=== PATIENT | male | born 1985 | race Caucasian/White ===

== ENCOUNTER 2023-07-02 13:32 | Outpatient (REF) | payer OTHER, SELFPAY ==
[2023-07-03 10:30] LABS: Amphetamine Screen Urine Not Detected (Not Detect); Barbiturates, Urine Not Detected (Not Detect); Benzodiazepines Screen Urine Not Detected (Not Detect); Buprenorphine Scr Not Detected (Not Detect); Cannabinoid Screen Urine POSITIVE (Not Detect); Cocaine Screen Urine Not Detected (Not Detect); Fentanyl, urine Not Detected (Not Detect); Methadone Screen, Urine Not Detected (Not Detect); Opiate Screen Urine Not Detected (Not Detect); Oxycodone Screen Urine Not Detected (Not Detect); Phencyclidine Screen Urine Not Detected (Not Detect)
== END 2023-07-02 13:33 | disposition home or self-care (01) ==
LOC: HO.LNP 13:32
PROVIDERS: Visit Provider Psychiatry & Neurology Psychiatry
DX: F14.90 Cocaine use, unspecified, uncomplicated (principal); F12.20 Cannabis dependence, uncomplicated
CPT/HCPCS: 80307

== ENCOUNTER 2023-07-16 11:45 | Outpatient (RCR) | payer OTHER, SELFPAY ==
[2023-07-02 11:52] VITALS: BP 112/69; PULSE 53; TEMP 36.3
[2023-07-02 11:57] VITALS: BMI 23.9
--- NOTE | 2023-07-02 13:22 | PC.ADMIT ---
Patient is a 37 year old male who was referred to [facility] by [facility] where he was admitted to the behavioral health unit from 06/17-06/27/23. Patient has a dx of bipolar d/o, BPD, Cocaine use, cannabis use and PTSD. Patient stated to this show card writer that prior to hospitalization he got into an argument with his and police were called, he thinks by a neighbor, as he was yelling outside on the porch and when the police came he ran into the lam. He stated he was charged with evading arrest ad interfering. He stated he tried to overdose on Xanax taking 18 tabs 1 mg each. He stated he got the Xanax from a friend and instead of flipping it and selling it he took it in a SA. His family brought him to the hospital d/t depression and SI. Patient reports he smokes marijuana daily however has not smoked in 3 weeks as he is trying to stay sober for 90 days. He reports he has cut down his use from using 5-10 joints a day to 3-5 joints daily. I encouraged him to attend the substance use groups for more support as he could benefit from this and he agreed. Patient reports he has not used cocaine since 2018 or 2019. Patient is taking time off from work to work on his mental health and substance use. 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 Patient is alert and oriented x4. He presented with depressed mood and anxious affect. Denied SI, no HI. He is calm and cooperative. Thoughts are clear and logical. He was given education verbal and written on marijuana use and vaping nicotine. 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 He feels the medications have been helpful to regulate his mood. His appetite has improved since reducing marijuana use. He reports history of nausea and vomiting, not currently. Patient given a copy of his safety plan if needed. Medications reconciled with patient and patient's d/c paperwork. He reports he is taking medications as prescribed.
--- NOTE | 2023-07-04 13:18 | HO.PHP ---
PHP staff member faxed a referral to [facility] for OP therapy and med management for Rudy. PHP staff member is awaiting a response with the scheduled dates and times.
--- NOTE | 2023-07-04 15:06 | HO.PHP ---
Client's case has been opened and reviewed in treatment team.
--- NOTE | 2023-07-04 21:40 | P.HPPSP_ITS ---
HPI Date of Service: 07/04/23 Chief Complaint: bipolar,PTSD Sources of Information: patient interviewed, chart reviewed and crisis/core team assessment reviewed HPI Narrative: This is the first [facility] admission for this 37 yo male with depression, PTSD, history of polysubstance abuse and legal issues, recently stepped down from [facility] for depression, SI, was diagnosed with Bipolar Disorder and started on Lexapro and lithium. He has had minimal treatment history says he is only starting to come to the realization that he had been smoking marijuana to self medicate his MH problems. Since being discharged his mood has been improving: mood stability is currently at a 4 out 10, improved from a 0-1 out of 10 on inpatient hospitalization. I was having vicious mood swings I need to regulate . He identifies his goal with treatment is I want to be able to contro l my emotions . He relays being often frustrated and easily irritated and blows everything out of proportion of which he has good insight into, but still doesn't make it any easier to control himself. He relays these are chronic struggles and are not necessarily associated with any particular mood episodes. He also describes issues with impulse control and high emotional reactivity especially when provoked. He reports history of being arrested for resisting arrest. He reports struggles with sleep, (only marginally improved even though he is taking trazodone), low energy and unintentional weight loss over the past year, with his baseline weight at 165 lbs but dropped down to 142 lbs heading into [facility]. He has recovered some of his weight, currently at 152 lbs. He reports suppressed appetite and hasn;t been eating 3 meals a day. There are also some marital and medical stressors including a cyst on his testicle, patient is concerned about cancer and is currently seeking a second opinion. He and his had been involved with IVF but the insurance wont cover this. On review of meds he endorses ED/sexual dysfunction that recently emerged and may be related to the SSRI (he was unaware this was a potential side effect). 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 Patient who was 22 yo found her and had to cut her down with help of his other brother Patient dropped out of college after sister and started into crime Legal hx: Incarcerat Substance History: Cocaine addiction, marijuana use Trauma History: Traumatic losses of 2 siblings (one to MVA, the other to suicide) Diagnostics Vital Signs (24Hr): BMI result Body Mass Index 23.9 Labs Labs: Laboratory Results - last 48 hr 07/02/23 11:51 Urine Opiates Screen Cancelled Ur Buprenorphine Scrn Cancelled Ur Oxycodone Screen Cancelled Urine Methadone Screen Cancelled Urine Fentanyl Screen Cancelled Ur Barbiturates Screen Cancelled Ur Phencyclidine Scrn Cancelled Ur Amphetamines Screen Cancelled U Benzodiazepines Scrn Cancelled Urine Cocaine Screen Cancelled U Marijuana (THC) Screen Cancelled Meds/Allergies Allergies Allergies Allergy/AdvReac Type Severity Reaction Status Date / Time tuna oil Allergy Vomiting Verified 07/02/23 13:25 Mental Status Exam Mental Status Exam Narrative: Alert, oriented, in no acute distress. Calm, cooperative, engaged. No psychomotor agitation or neurovegetative retardation. Eye contact maintained. Mood depressed, affect constricted, irritable edge without notable lability. Speech normal. Thought process linear, coherent. Thought content related to stressors, transient helplessness, no hopelessness noted, denies SI, intention, urge or plan. Denies any aggressive ideation or HI. No paranoia or delusional content elicited. No evidence of psychosis. Insight and judgment - fair but adequate Assessment & Plan Assessment & Plan (1) Mood disorder: Status: Acute Code(s): F39 - Unspecified mood [affective] disorder Assessment and Plan: recently diagnosed with Bipolar Disorder consider BPIID vs MDD+mood dysregulation 2/t ICD vs ADHD (2) Other impulse disorders: Status: Acute Code(s): F63.89 - Other impulse disorders (3) PTSD (post-traumatic stress disorder): Status: Acute Code(s): F43.10 - Post-traumatic stress disorder, unspecified (4) Cocaine abuse: Status: Acute Code(s): F14.10 - Cocaine abuse, uncomplicated Plan Admit to PHP VS reviewed: abrefile; BP?112/69; bpm 53 Start Trileptal 300 mg qhs and will increase to BID dosing in 2-4 days, as tolerated Continue other medications for now -and we reviewed risk, benefit and potential side effects of his current medications Li, escitalopram and trazodone, as well as oxcarbazapine Will plan to decrease Lexapro (presumably this is causing ED) as tolerated Will consider adding on or switching over to Wellbutrin to target ED sx, as well as depressive sx, low energy, ADHD sx May also consider guanfacine for anxiety, restlessness, possibly sleep - however he is somewhat bradycardic, so will hold off for now (may work better if WB started first) Routine lab work ordered UDS, EKG as indicated MassPat reviewed Continue to monitor as per protocol Patient educated on: diagnosis, medication risk/benefits and substance abuse Informed Consent: understands Reason for continued partial hosp. stay Substantial Risk for: inability to function, rapid decompensation and med/psych decompensation Certification I certify that partial hospital treatment is medically necessary due to the symptoms and problems resulting from the patient's mental illness and the failure to treat the patient at the partial hospital level of care would likely result in the patient requiring inpatient psychiatric care which could not be prevented at a less intensive level of care. Time Spent With Patient Time: Total time managing care of this patient today __60__ minutes.
--- NOTE | 2023-07-11 23:28 | P.PNPSP_ITS ---
Subjective Subjective Date of Service: 07/11/23 Reason For Visit: bipolar,PTSD Interim History: Reports mood is starting to level out, not getting to high or too low . MOod stablity improved from a 6 out of 10 , up from a 2 out of 10. Not getting as upset by minor inconveniences (eg cleaning up cat puke). He is tolerating Trileptal now at 300 mg BID. Denies any sedation or adverse effects. 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 But is starting to feel hopelful if he is better able to handle situations. His notices improvements which he is happy about. He is doing okay with Lexapro at 10 mg is not sure if it has been helpful but for now we will continue on current dose and start WEllbutrin to target ADHD symptoms as well as depression. Will start guanfacine to better manage anxiety, attention/focus. Dneies any SI. In interim, sleep is improving he is no longer taking trazodone. Energy variable. appetite fair. He is feeling general health is overall good. Denies any substance use. ROS negative. Mental Status Exam Mental Status Exam Narrative: Alert, oriented, in no acute distress. Cooperative, engaged. Fidets, able to remain seated. Eye contact maintained. Mood less irritable or depressed, affect variable without noted irritability or lability. Speech normal. Thought process linear, coherent. Thought content related to stressors, transient helplessness, no hopelessness noted, denies SI, intention, urge or plan. Denies HI. No paranoia or delusional content elicited. No evidence of psychosis. Insight and judgment - fair but adequate Diagnostics Vital Signs (24Hr): BMI result Body Mass Index 23.9 Assessment & Plan Assessment & Plan (1) Mood disorder: Status: Acute Code(s): F39 - Unspecified mood [affective] disorder (2) Other impulse disorders: Status: Acute Code(s): F63.89 - Other impulse disorders (3) PTSD (post-traumatic stress disorder): Status: Acute Code(s): F43.10 - Post-traumatic stress disorder, unspecified (4) Cocaine abuse: Status: Acute Code(s): F14.10 - Cocaine abuse, uncomplicated Plan continue oxcarbazepine 300 mg BID and will titrate toward 450 mg BID over weekend start Wellbutrin SR 50-100 mg qAM as tolerated (take w breakfast, avoid caffeine for now) start guanfacine ER 1 mg qAM continue other regular medications Patient educated on: diagnosis, medication risk/benefits and substance abuse Informed Consent: understands Certification I certify that partial hospital treatment is medically necessary due to the s ymptoms and problems resulting from the patient's mental illness and the failure to treat the patient at the partial hospital level of care would likely result in the patient requiring inpatient psychiatric care which could not be prevented at a less intensive level of care. Total time managing care of this patient today ____ minutes. Discharge Plan Discharge Attending provider: Tracee Larson Additional Instructions: Rudy's OP therapy intake appointment is scheduled for July 19, 2023 at 11 AM with Shahrzad Holley at [address] [place] [address] in [place], [place]. Rudy's med provider appointment is scheduled for August 21, 2023 at 9 AM with Milagros Huang via telehealth. Medications: New oxcarbazepine 300 mg tablet 300 mg PO BID Qty: 30 0RF Rx Instructions: take 1/2 tablet po BID for 4 days then increase to 1 tablet BID bupropion HCl [Wellbutrin SR] 100 mg tablet sustained-release 12 hr 100 mg PO QAM Qty: 20 0RF guanfacine 1 mg tablet extended release 24 hr 1 mg PO QAM Qty: 20 0RF No Action trazodone 50 mg Tablet 50 mg PO BEDTIME PRN (Reason: Insomnia) nicotine (polacrilex) 2 mg Gum 2 mg BUCCAL Q1H lithium carbonate 150 mg Capsule 150 mg PO BEDTIME nicotine 21 mg/24 hr Patch 24 Hour 1 patch TRANSDERMAL DAILY escitalopram oxalate 10 mg Tablet 10 mg PO DAILY naloxone 4 mg/actuation [place],Non-Aerosol 4 mg INTRANASAL ONCE PRN (Reason: Opioid Reversal) Rx Instructions: spray 1 dose into ONE nostril; alternate nostrils w each dose until help arrives. Stand Alone Forms: Patient Portal Discharge page Print Language: Welsh
--- NOTE | 2023-07-12 09:38 | HO.PHP ---
PHP staff member received a phone call from Nikos at [facility], who informed the clinician of Rudy's upcoming appointments. Rudy's OP therapy intake appointment is scheduled for July 19, 2023 at 11 AM with Shahrzad Holley at [address] [place] [address] in [place], [place]. Rudy's med provider appointment is scheduled for August 21, 2023 at 9 AM with Milagros Huang via telehealth.
--- NOTE | 2023-07-15 09:54 | PC.NURSE ---
New PCP appointment on November 29, 2023 900 am at [address] Office Number [phone].
--- NOTE | 2023-07-16 23:47 | HO.PHPPROGNO ---
Subjective Subjective Date of Service: 07/16/23 Reason For Visit: bipolar,PTSD Interim History: Patient seen for follow-up, anticipating discharge at the end of program today.? Reports no acute issues or concerns. Medication compliant, medications well-tolerated. Denies any adverse effects.? Mood is stable.? Denies any hopelessness or SI. Denies thoughts of harming self or others at this time. Denies any aggressive ideation or HI. Denies any paranoia or AH or VH. Sleep, appetite, energy stable. Medication Compliance: Yes Side effects from medications: No Attending Groups: Yes Review of Systems Acute medical concerns: No Mental Status Exam Mental Status Exam Narrative: Alert, oriented, in no acute distress. Cooperative, engaged. Fidets, able to remain seated. Eye contact maintained. Mood less irritable or depressed, affect variable without noted irritability or lability. Speech normal. Thought process linear, coherent. Thought content related to stressors, transient helplessness, no hopelessness noted, denies SI, intention, urge or plan. Denies HI. No paranoia or delusional content elicited. No evidence of psychosis. Insight and judgment - fair but adequate Diagnostics Vital Signs (24Hr): BMI result Body Mass Index 23.9 Assessment & Plan Assessment & Plan (1) Other bipolar disorder: Status: Acute Code(s): F31.89 - Other bipolar disorder (2) PTSD (post-traumatic stress disorder): Status: Acute Code(s): F43.10 - Post-traumatic stress disorder, unspecified (3) ADHD, adult residual type: Status: Acute Code(s): F90.8 - Attention-deficit hyperactivity disorder, other type (4) Cocaine abuse: Status: Acute Code(s): F14.10 - Cocaine abuse, uncomplicated Assessment and Plan: in early remission (5) Cannabis abuse: Status: Acute Code(s): F12.10 - Cannabis abuse, uncomplicated Plan Discharge from [facility] Continue regular medications continue oxcarbazepine at 600 mg BID continue Wellbutrin SR 100 mg BID (take w breakfast, avoid caffeine for now) cotninue guanfacine ER 1 mg BID continue to taper off Lexapro (5 mg daily for one week then stop) discontinued: [place], trazodone, Lexapro, Patient did not get blood work done Refills sent to pharmacy Will defer further medication management to outpatient provider patient can contact [facility] for refills if set to run out before OP provider appointment *Safety plan reviewed *Discharge Diagnoses reviewed with patient, as well as treatment course, discharge plan (including medication regime, medication management, potential side effects) as well as treatment rationale were also revisited *If patient wishes, they are welcome to have their outpatient provider reach out to me for any further questions or clarification as pertains to this patient?s clinical care/treatment during their stay at [facility] (contact information provided to patient)? Patient educated on: diagnosis, medication risk/benefits and substance abuse Informed Consent: understands Reason for contiued partial hosp. stay Substantial Risk for: stable for discharge Certification I certify that partial hospital treatment is medically necessary due to the symptoms and problems resulting from the patient's mental illness and the failure to treat the patient at the partial hospital level of care would likely result in the patient requiring inpatient psychiatric care which could not be prevented at a less intensive level of care. Total time managing care of this patient today __30__ minutes. Discharge Plan Discharge Attending provider: Tracee Larson Additional Instructions: Rudy's OP therapy intake appointment is scheduled for July 19, 2023 at 11 AM with Shahrzad Holley at [address] [place] [address] in [place], [place]. Rudy's med provider appointment is scheduled for August 21, 2023 at 9 AM with Milagros Huang via telehealth. New PCP appointment on November 29, 2023 at 9:00 am at [address] Office Number [phone]. Medications: New guanfacine 1 mg tablet extended release 24 hr 1 mg PO QPM Qty: 30 0RF escitalopram oxalate 5 mg tablet 7.5 mg PO DAILY Qty: 45 0RF guanfacine 1 mg tablet extended release 24 hr 1 mg PO BID 30 Days Qty: 60 0RF Continued oxcarbazepine 600 mg tablet 600 mg PO BID 10 Days Qty: 20 0RF Changed guanfacine 1 mg tablet extended release 24 hr 1 - 2 mg PO QAM Qty: 30 0RF bupropion HCl [Wellbutrin SR] 100 mg tablet sustained-release 12 hr 100 mg PO BID 10 Days Qty: 20 0RF Discontinued trazodone 50 mg Tablet 50 mg PO BEDTIME PRN (Reason: Insomnia) nicotine (polacrilex) 2 mg Gum 2 mg BUCCAL Q1H lithium carbonate 150 mg Capsule 150 mg PO BEDTIME nicotine 21 mg/24 hr Patch 24 Hour 1 patch TRANSDERMAL DAILY escitalopram oxalate 10 mg Tablet 10 mg PO DAILY naloxone 4 mg/actuation [place],Non-Aerosol 4 mg INTRANASAL ONCE PRN (Reason: Opioid Reversal) Rx Instructions: spray 1 dose into ONE nostril; alternate nostrils w each dose until help arrives. Stand Alone Forms: Patient Portal Discharge page Patient Education: Mood Disorders (DC) Print Language: Gibraltarian
--- NOTE | 2023-08-14 15:46 | PM.EVENT ---
Event Note Date of Service: 08/14/23 Event Note: 10 day supply sent wellbutrin trileptal per php request Time Spent With Patient Time: Total time managing care of this patient today ____ minutes.
--- NOTE | 2023-08-22 23:37 | PM.EVENT ---
Event Note Date of Service: 08/22/23 Event Note: Returned call to patient to inform him that the requested refills on bupropion, oxcarbazepine and escitalopram were efaxed to his pharmacy. Time Spent With Patient Time: Total time managing care of this patient today _10___ minutes.
--- NOTE | 2023-08-29 15:30 | HO.PHP ---
Budget Counselor contacted [facility] outpatient behavioral health services to follow-up on the scheduled services set up for Jovon while he was at [facility], after pt's contacted [facility] to express concern that he did not have OP services in place. [facility] Central Intake reported Jovon Rodriguez went to one therapy appt, scheduled on July 18 and did not return for future appts. [facility] staff stated, per note, that pt called [facility] and asked to be discharged because he was going to find providers closer to his home location. [facility] reports he did not show up to his Med Provider appt scheduled on August 21, 2023 so his case with [facility] was closed. Budget Counselor confirmed with [facility] that his health insurance was active and accepted at [facility].
--- NOTE | 2023-08-30 14:02 | HO.PHP ---
Rudy called the program stating that the aftercare services that were set up for him fell through. The [facility] team helped him by setting up a Bridge appointment on Saturday, September 02, 2023 with Ana Rosa Polo for follow up medication management.
== END 2023-07-16 23:59 | disposition home or self-care (01) ==
LOC: HO.PHPA 11:45
PROVIDERS: Visit Provider Psychiatry & Neurology Psychiatry
DX: F39 Unspecified mood [affective] disorder (principal); F63.89 Other impulse disorders; F43.10 Post-traumatic stress disorder, unspecified; F14.10 Cocaine abuse, uncomplicated; Z79.899 Other long term (current) drug therapy
CPT/HCPCS: 80307; 90791; 90853

== ENCOUNTER 2023-09-02 14:08 | Outpatient (AMB) | payer OTHER, SELFPAY ==
--- NOTE | 2023-09-02 14:18 | A.OFFPSYCH_ITS ---
Intake Intake Visit Reasons: consultation Manager Recovery Required: No Allergies tuna oil Allergy (Verified 07/02/23 13:25) Vomiting Medication List - Last Reconciled 09/02/23 by Briseida Polo APRN bupropion HCl SR (Wellbutrin SR) 100 mg PO BID 30 days escitalopram oxalate 5 mg PO DAILY guanfacine ER 1 mg PO QPM guanfacine ER 1 - 2 mg (1 - 2 x 1 mg) PO QAM guanfacine ER 1 mg PO BID 30 days oxcarbazepine 600 mg PO BID 30 days HPI- Psychiatric Chief Complaint: consultation HPI Narrative: 37 yo male with depression, PTSD, history of polysubstance abuse and legal is sues, recently finished PHP after step down from [facility] for depression, SI, was diagnosed with Bipolar Disorder and started on Lexapro and lithium. He is currently taking meds : lexapro 5mg daily trileptal 600mh BID tenex ER 1 mg BID wellbutrin SR 100mg BID He is on a lexarpo taper with goal of d/c. pt reports some mild depression symptoms with guillt, shame, self blam, irritability, unable to enjoy activities. He has not connected to a therapist or psychiatrist yet. he was referred to a place in [facility] but it is too far for him to travel. he is not driving yet. he has good insight into, but still doesn't make it any easier to control himself. He relays these are chronic struggles and are not necessarily associated with any particular mood episodes. He also describes issues with impulse control and high emotional reactivity especially when provoked. He reports history of being arrested for resisting arrest. He reports struggles with sleep, low energy and unintentional weight loss over the past year, with his baseline weight at 165 lbs but dropped down to 142 lbs heading Pt describes very early losses and truama during childhood which continue to impact him. He denies SI or Hi. Past Psychiatric History: [facility] x1 spent ~ 2weeks at [place] Previous trials of Zoloft in shelter, no previous medication trials Subjective Subjective Subjective Medication Compliance: Yes Side effects from medications: No Review of Systems Medical Review of Systems: unchanged Mental Status Exam Mental Status Exam Patient Appearance: Appropriate Patient Orientation: Person, Place, Time and Situation Level of Consciousness: Awake and Appropriate Patient Behavior: Appropriate, Talkative and Cooperative Mood Description: Sad Affect Description: Sad Patient Cognition Impaired: No Ability to Follow Directions: Good Speech Pattern: Clear and Spontaneous Speech Memory Description: Intact Hallucinations: None Delusions: Not Present Thought Process: Intact and Goal Oriented Thought Content: positive for Intact, positive for Goal Oriented and positive for Loose Associations Judgement: Fair Assessment and Plan Assessment & Plan (1) PTSD (post-traumatic stress disorder): Status: Acute Code(s): F43.10 - Post-traumatic stress disorder, unspecified (2) Other bipolar disorder: Status: Acute Code(s): F31.89 - Other bipolar disorder (3) ADHD, adult residual type: Status: Acute Code(s): F90.8 - Attention-deficit hyperactivity disorder, other type (4) Cannabis abuse: Status: Acute Code(s): F12.10 - Cannabis abuse, uncomplicated (5) Cocaine abuse: Status: Acute Code(s): F14.10 - Cocaine abuse, uncomplicated Plan continue medications reduce lexapro to 2.5mg daily increase tenex ER 1 mg to one in am and 2 at bedtime Medications: Changed From escitalopram oxalate 5 mg PO DAILY 30 tabs 0RF as directed To escitalopram oxalate stop after 14 days of 2.5mg daily 2.5 mg (1/2 x 5 mg) PO DAILY 7 tabs 0RF as directed From guanfacine ER 1 mg PO BID 30 days 60 tabs 0RF To guanfacine ER 1 mg orally take one tablet inmorning and two tablets at bedtime; 30 days 90 tabs 0RF Refilled oxcarbazepine 600 mg PO BID 30 days 60 tabs 0RF bupropion HCl SR (Wellbutrin SR) 100 mg PO BID 30 days 60 tabs 0RF in AM and lunchtime Discontinued guanfacine ER Discontinued Reason: Duplicate 1 mg PO QPM 30 tabs 0RF in late afternoon/evening guanfacine ER Discontinued Reason: Duplicate 1 - 2 mg (1 - 2 x 1 mg) PO QAM 30 tabs 0RF as directed Counseling and coordination of Care Pt. Self Management counseling: Other self-help group, Maintenance-social rhythm, Mod caffeine/ETOH intake, Sleep hygiene, Behavior activation and Cognitive restructuring Medication management counseling: Effectiveness, Side effects, Dosing range, Duration, Drug interaction and Adherence Diagnosis and Prognosis Counseling: Accuracy of diagnosis, Prognosis over time, Impact of diagnosis on life functions, Impact of family relationship, Problematic behaviors secondary to diagnosis and Adequacy of current interventions Details: I spent 60 minutes reviewing the record, seeing the patient and documenting in the medical record. Counseling provided to the patient/caregiver as outlined below. Addressed patient/caregiver concerns regarding current medication regime including effective adherence. Addressed patient/caregiver concerns regarding diagnosis and prognosis including accuracy of diagnosis, prognosis over time, impact of diagnosis. Addressed patient/caregiver concerns regarding impact of recent stressors. 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 Patient who was 22 yo found her and had to cut her down with help of his other brother Patient dropped out of college after sister and started into crime Legal hx: Incarcerat Substance History: Cocaine addiction, marijuana use Trauma History: Traumatic losses of 2 siblings (one to MVA, the other to suicide) Coding Level of Care Code Psych Diag Eval w/Med (11738) Diagnoses PTSD (post-traumatic stress disorder) F43.10 Other bipolar disorder F31.89 ADHD, adult residual type F90.8 Cannabis abuse F12.10 Cocaine abuse F14.10
== END 2023-09-02 15:45 | disposition home or self-care (01) ==
LOC: HO.HOP 14:08
PROVIDERS: Visit Provider Clinical Nurse Specialist Psychiatric/Mental Health
DX: F43.10 Post-traumatic stress disorder, unspecified (principal); F31.89 Other bipolar disorder; F90.8 Attention-deficit hyperactivity disorder, other type; F12.10 Cannabis abuse, uncomplicated; F14.10 Cocaine abuse, uncomplicated
CPT/HCPCS: 90792

== ENCOUNTER → 2023-09-02 14:08 | Outpatient (BNVA) | payer OTHER, SELFPAY | PROVIDERS: Visit Provider Clinical Nurse Specialist Psychiatric/Mental Health | DX: F43.10 Post-traumatic stress disorder, unspecified (principal); F31.89 Other bipolar disorder; F90.8 Attention-deficit hyperactivity disorder, other type; F12.10 Cannabis abuse, uncomplicated; F14.10 Cocaine abuse, uncomplicated; Z79.899 Other long term (current) drug therapy | CPT/HCPCS: 90792 ==

== ENCOUNTER 2023-10-11 16:06 | Outpatient (AMB) | payer OTHER, SELFPAY ==
--- NOTE | 2023-10-11 16:16 | MHC.OFFVISPS ---
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 he reports continued abstinence; reports more mood swings, more irritability, sadness, feels unworthy, struggling with lack of community, reports passive SI but no plan and no intent. no HI. He reports he was on lithium in the past and he felt that his mood was much better. He felt like he was happy to be alive. He felt zafar in activities. We discussed the pros and cons of using lithium. Discussed using it a low dose to protect his kidneys and to limit blood work requirements. Past Psychiatric History: [facility] x1 spent ~ 2weeks at [place] [facility], no previous medication trials Subjective Subjective Subjective Medication Compliance: Yes Side effects from medications: No Review of Systems Medical Review of Systems: unchanged Mental Status Exam Mental Status Exam Patient Appearance: Well Grooomed and Appropriate Patient Orientation: Person, Place, Time and Situation Level of Consciousness: Awake Patient Behavior: Appropriate Mood Description: Sad Affect Description: Flat and Sad Patient Cognition Impaired: No Ability to Follow Directions: Good Speech Pattern: Clear Memory Description: Intact Hallucinations: None Delusions: Not Present Thought Process: Intact Thought Content: positive for Intact and positive for Loose Associations Judgement: Fair Assessment and Plan Assessment & Plan (1) ADHD, adult residual type: Status: Acute Code(s): F90.8 - Attention-deficit hyperactivity disorder, other type (2) PTSD (post-traumatic stress disorder): Status: Acute Code(s): F43.10 - Post-traumatic stress disorder, unspecified (3) Mood disorder: Status: Acute Code(s): F39 - Unspecified mood [affective] disorder Plan add lithium 150 mg BID stay hydrated continue with guanfacine,trileptal, and wellbutrin Medications: New lithium carbonate 150 mg PO BID 60 caps 1RF Refilled guanfacine ER 1 mg orally take one tablet inmorning and two tablets at bedtime; 30 days 90 tabs 0RF Discontinued escitalopram oxalate stop after 14 days of 2.5mg daily Discontinued Reason: Doctor's Order 2.5 mg (1/2 x 5 mg) PO DAILY 7 tabs 0RF as directed Counseling and coordination of Care Pt. Self Management counselin Step program, Maintenance-social rhythm, Mindfulness, Mod caffeine/ETOH intake, Nutrition education and improvement, Sleep hygiene, Substance abuse tx adhere, Behavior activation, Cognitive restructuring, General coping skills and Problem solving Medication management counseling: Effectiveness, Side effects, Dosing range, Duration, Drug interaction and Adherence Diagnosis and Prognosis Counseling: Accuracy of diagnosis, Prognosis over time, Impact of diagnosis on life functions, Impact of family relationship, Problematic behaviors secondary to diagnosis and Adequacy of current interventions Details: I spent 45 minutes reviewing the record, seeing the patient and documenting in the medical record. Counseling provided to the patient/caregiver as outlined below. Addressed patient/caregiver concerns regarding current medication regime including effective adherence. Addressed patient/caregiver concerns regarding diagnosis and prognosis including accuracy of diagnosis, prognosis over time, impact of diagnosis. Addressed patient/caregiver concerns regarding impact of recent stressors. 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 Patient who was 22 yo found her and had to cut her down with help of his other brother Patient dropped out of college after sister and started into crime Legal hx: Incarcerat Substance History: Cocaine addiction, marijuana use Trauma History: Traumatic losses of 2 siblings (one to MVA, the other to suicide) Coding Level of Care Code Est Pt Level 4 (74733) Therapy 30m w/E&M (49462) Diagnoses ADHD, adult residual type F90.8 PTSD (post-traumatic stress disorder) F43.10 Mood disorder F39 Comment problem solving therapy re: community supports
== END 2023-10-11 18:33 | disposition home or self-care (01) ==
LOC: HO.HOP 16:06
PROVIDERS: PCP Hospitalist; Visit Provider Clinical Nurse Specialist Psychiatric/Mental Health
DX: F90.8 Attention-deficit hyperactivity disorder, other type (principal); F43.10 Post-traumatic stress disorder, unspecified; F39 Unspecified mood [affective] disorder
CPT/HCPCS: 90833; 99214

== ENCOUNTER → 2023-10-11 16:06 | Outpatient (BNVA) | payer OTHER, SELFPAY | PROVIDERS: PCP Hospitalist; Visit Provider Clinical Nurse Specialist Psychiatric/Mental Health ==

== ENCOUNTER 2023-11-04 14:30 | Outpatient (AMB) | payer OTHER, SELFPAY ==
--- NOTE | 2023-11-04 14:37 | A.OFFPSYCH_ITS ---
Intake Intake Visit Reasons: depr Stem Frazer Required: No Allergies tuna oil Allergy (Verified 07/02/23 13:25) Vomiting Medication List - Last Reconciled 11/04/23 by Briseida Polo APRN bupropion HCl SR (Wellbutrin SR) 100 mg PO BID 30 days guanfacine ER 1 mg orally take one tablet inmorning and two tablets at bedtime; 30 days lithium carbonate 150 mg PO BID oxcarbazepine 600 mg PO BID 30 days HPI- Psychiatric Chief Complaint: depr HPI Narrative: pt reports lithium has helped his mood; no side effects; started with therapist; reports some intermittent agitation; reports conflict with ; feels bad about himself;no SI or HI. sleep fair. reports OCD symptoms of counting, rushing to finish things due to feeling something bad will happen, cleaning 6-10 times a day the same space, having to put thinks in certain order and away after use without delay. very upset when things aren't done a certain way. causes some conflict with others. says he felt better on lithium and lexapro. doesn't think trileptal has done much for him and not certain about wellbutrin or tenex. Past Psychiatric History: [facility] x1 spent ~ 2weeks at [place] [facility] [place] [facility], no previous medication trials Subjective Subjective Subjective Medication Compliance: Yes Side effects from medications: No Review of Systems Medical Review of Systems: unchanged Mental Status Exam Mental Status Exam Patient Appearance: Appropriate Patient Orientation: Person, Place, Time and Situation Level of Consciousness: Awake and Appropriate Patient Behavior: Appropriate and Talkative Mood Description: Sad Affect Description: Sad Patient Cognition Impaired: No Ability to Follow Directions: Good Speech Pattern: Clear Memory Description: Intact Hallucinations: None Delusions: Not Present Thought Process: Intact, Rumination and Goal Oriented Thought Content: positive for Intact, positive for Obsessional Thoughts and positive for Loose Associations Judgement: Fair Assessment and Plan Assessment & Plan (1) PTSD (post-traumatic stress disorder): Status: Acute Code(s): F43.10 - Post-traumatic stress disorder, unspecified (2) OCD (obsessive compulsive disorder): Status: Acute Qualifiers: Obsessive-compulsive disorder type: mixed obsessional thoughts and acts Qualified Code(s): F42.2 - Mixed obsessional thoughts and acts Code(s): F42.9 - Obsessive-compulsive disorder, unspecified (3) ADHD, adult residual type: Status: Acute Code(s): F90.8 - Attention-deficit hyperactivity disorder, other type (4) Other bipolar disorder: Status: Acute Code(s): F31.89 - Other bipolar disorder Plan add lexapro 5 mg daily increase lithium to 300mg BID consider tapering trileptal in future reassess tenex and wellbutrin Medications: New escitalopram oxalate (Lexapro) 5 mg PO DAILY 30 tabs 0RF lithium carbonate 300 mg PO BID 60 caps 0RF Discontinued lithium carbonate Discontinued Reason: Doctor's Order 150 mg PO BID 60 caps 1RF Counseling and coordination of Care Pt. Self Management counseling: Maintenance-social rhythm, Mindfulness, Mod caffeine/ETOH intake, Sleep hygiene, Substance abuse tx adhere, Behavior activation, General coping skills and Problem solving Medication management counseling: Effectiveness, Side effects, Dosing range, Drug interaction and Adherence Diagnosis and Prognosis Counseling: Accuracy of diagnosis, Prognosis over time, Impact of diagnosis on life functions, Impact of family relationship and Adequacy of current interventions Details: I spent 45 minutes reviewing the record, seeing the patient and documenting in the medical record. Counseling provided to the patient/caregiver as outlined below. Addressed patient/caregiver concerns regarding current medication regime including effective adherence. Addressed patient/caregiver concerns regarding diagnosis and prognosis including accuracy of diagnosis, prognosis over time, impact of diagnosis. Addressed patient/caregiver concerns regarding impact of recent stressors. 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 Patient who was 22 yo found her and had to cut her down with help of his other brother Patient dropped out of college after sister and started into crime Legal hx: Incarcerat Substance History: Cocaine addiction, marijuana use Trauma History: Traumatic losses of 2 siblings (one to MVA, the other to suicide) Coding Level of Care Code Est Pt Level 5 (19484) Diagnoses PTSD (post-traumatic stress disorder) F43.10 Mixed obsessional thoughts and acts F42.2 Obsessive-compulsive disorder type: mixed obsessional thoughts and acts ADHD, adult residual type F90.8 Other bipolar disorder F31.89
== END 2023-11-04 15:22 | disposition home or self-care (01) ==
LOC: HO.HOP 14:30
PROVIDERS: PCP Hospitalist; Visit Provider Clinical Nurse Specialist Psychiatric/Mental Health
DX: F43.10 Post-traumatic stress disorder, unspecified (principal); F42.2 Mixed obsessional thoughts and acts; F90.8 Attention-deficit hyperactivity disorder, other type; F31.89 Other bipolar disorder
CPT/HCPCS: 99215

== ENCOUNTER → 2023-11-04 14:30 | Outpatient (BNVA) | payer OTHER, SELFPAY | PROVIDERS: PCP Hospitalist; Visit Provider Clinical Nurse Specialist Psychiatric/Mental Health ==

== ENCOUNTER 2023-11-19 15:28 | Outpatient (AMB) | payer OTHER, SELFPAY ==
--- NOTE | 2023-11-19 16:03 | MHC.OFFVISPS ---
Intake Intake Visit Reasons: depr Allergies tuna oil Allergy (Verified 07/02/23 13:25) Vomiting Medication List - Last Reconciled 11/19/23 by Briseida Polo APRN escitalopram oxalate (Lexapro) 5 mg PO DAILY guanfacine ER 1 mg orally take one tablet inmorning and two tablets at bedtime; 30 days lithium carbonate 300 mg PO BID oxcarbazepine 600 mg PO BID 30 days HPI- Psychiatric Chief Complaint: depr HPI Narrative: PHQ9= 15.5 and was 20 at last visit; GAD7=9 and improved also; pt is much calmer; less irritable. more optimistic; has been enjoying working and softball. enjoys time with . he continues to struggle with feeling worthy and lso with survivors guilt; he expresses a sense of foreshortened future and we discussed this as a symptoms of trauma; encouraged him that he can heal from this as well on his recovery journey. He says he doesn't every save money and we discussed this as parallel to a sense of foreshortened future from experiences of trauma; He is meetng regularly with therapist and making progress. no active SI ; expresses some passive SI but no plan an no intent; no Hi. no side effects; discussed needed blood work and he will get done next week. Past Psychiatric History: IPLOC x1 spent ~ 2weeks at [place] Previous trials of Zoloft in care home, no previous medication trials Subjective Subjective Subjective Medication Compliance: Yes Side effects from medications: No Review of Systems Medical Review of Systems: unchanged Mental Status Exam Mental Status Exam Patient Appearance: Well Grooomed and Appropriate Patient Orientation: Person, Place, Time and Situation Level of Consciousness: Awake and Appropriate Patient Behavior: Appropriate, Talkative and Cooperative Mood Description: Sad Affect Description: Sad Patient Cognition Impaired: No Ability to Follow Directions: Good Speech Pattern: Clear and Appropriate Memory Description: Intact Hallucinations: None Delusions: Not Present Thought Process: Intact and Goal Oriented Thought Content: positive for Intact and positive for Goal Oriented Judgement: Fair Assessment and Plan Assessment & Plan (1) OCD (obsessive compulsive disorder): Status: Acute Qualifiers: Obsessive-compulsive disorder type: mixed obsessional thoughts and acts Qualified Code(s): F42.2 - Mixed obsessional thoughts and acts Code(s): F42.9 - Obsessive-compulsive disorder, unspecified (2) ADHD, adult residual type: Status: Acute Code(s): F90.8 - Attention-deficit hyperactivity disorder, other type (3) Other bipolar disorder: Status: Acute Code(s): F31.89 - Other bipolar disorder (4) Long-term use of high-risk medication: Status: Acute Code(s): Z79.899 - Other pen[facility]iary (current) drug therapy Plan continue lithium 300mg BID continue lexpapro 5 mg daily continue trileptal 600mg BID continue tenex er 1 mg in am and 2 at night Medications: Refilled lithium carbonate 300 mg PO BID 60 caps 0RF oxcarbazepine 600 mg PO BID 60 tabs 2RF 30 days escitalopram oxalate (Lexapro) 5 mg PO DAILY 30 tabs 0RF guanfacine ER 1 mg orally take one tablet inmorning and two tablets at bedtime; 90 tabs 0RF 30 days Discontinued bupropion HCl SR (Wellbutrin SR) Discontinued Reason: Doctor's Order 100 mg PO BID 30 days 60 tabs 0RF in AM and lunchtime Orders: Orders Complete Blood Count Auto Diff Today Z79.899 - Other penitentiary (current) drug therapy Comprehensive [place]. Panel Fast Today Z79.899 - Other penitentiary (current) drug therapy [place] Today Z79.899 - Other terminal operations manager (current) drug therapy TSH reflex Free T4 Today Z79.899 - Other terminal operations manager (current) drug therapy ECG 12 lead EKG Today F90.8 - Attention-deficit hyperactivity disorder, other type, Z79.899 - Other penitentiary (current) drug therapy Counseling and coordination of Care Details: I spent [] minutes reviewing the record, seeing the patient and documenting in the medical record. Counseling provided to the patient/caregiver as outlined below. Addressed patient/caregiver concerns regarding current medication regime including effective adherence. Addressed patient/caregiver concerns regarding diagnosis and prognosis including accuracy of diagnosis, prognosis over time, impact of diagnosis. Addressed patient/caregiver concerns regarding impact of recent stressors. 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 Patient who was 22 yo found her and had to cut her down with help of his other brother Patient dropped out of college after sister and started into crime Legal hx: Incarcerat Substance History: Cocaine addiction, marijuana use Trauma History: Traumatic losses of 2 siblings (one to MVA, the other to suicide) Coding Level of Care Code Est Pt Level 5 (13590) Diagnoses Mixed obsessional thoughts and acts F42.2 Obsessive-compulsive disorder type: mixed obsessional thoughts and acts ADHD, adult residual type F90.8 Other bipolar disorder F31.89 Long-term use of high-risk medication Z79.899
== END 2023-11-19 16:11 | disposition home or self-care (01) ==
LOC: HO.HOP 15:28
PROVIDERS: PCP Hospitalist; Visit Provider Clinical Nurse Specialist Psychiatric/Mental Health
DX: F42.2 Mixed obsessional thoughts and acts (principal); F90.8 Attention-deficit hyperactivity disorder, other type; F31.89 Other bipolar disorder; Z79.899 Other long term (current) drug therapy
CPT/HCPCS: 99215

== ENCOUNTER → 2023-11-19 15:28 | Outpatient (BNVA) | payer OTHER, SELFPAY | PROVIDERS: PCP Hospitalist; Visit Provider Clinical Nurse Specialist Psychiatric/Mental Health ==

== ENCOUNTER 2023-12-17 15:04 | Outpatient (AMB) | payer OTHER, SELFPAY ==
--- NOTE | 2023-12-17 15:09 | A.OFFPSYCH_ITS ---
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 PHQ9=13 and GAD7 = 8. no SI or Hi Past Psychiatric History: IPLOC x1 spent ~ 2weeks at [facility] Previous trials of Zoloft in snf, no previous medication trials Subjective Subjective Subjective Medication Compliance: Yes Side effects from medications: No Review of Systems Medical Review of Systems: unchanged Mental Status Exam Mental Status Exam Patient Appearance: Well Grooomed and Appropriate Patient Orientation: Person, Place, Time and Situation Level of Consciousness: Awake and Appropriate Patient Behavior: Appropriate Mood Description: Anxious Affect Description: Anxious Patient Cognition Impaired: No Ability to Follow Directions: Good Speech Pattern: Clear Memory Description: Intact Hallucinations: None Delusions: Not Present Thought Process: Intact and Distracted Thought Content: positive for Intact and positive for Loose Associations Judgement: Good Assessment and Plan Assessment & Plan (1) ADHD, adult residual type: Status: Acute Code(s): F90.8 - Attention-deficit hyperactivity disorder, other type (2) Other bipolar disorder: Status: Acute Code(s): F31.89 - Other bipolar disorder (3) PTSD (post-traumatic stress disorder): Status: Acute Code(s): F43.10 - Post-traumatic stress disorder, unspecified (4) Cocaine abuse: Status: Acute Code(s): F14.10 - Cocaine abuse, uncomplicated Medications: Refilled guanfacine ER 1 mg orally take one tablet inmorning and two tablets at bedtime; 90 tabs 0RF 30 days lithium carbonate 300 mg PO BID 60 caps 0RF escitalopram oxalate (Lexapro) 5 mg PO DAILY 30 tabs 0RF oxcarbazepine 600 mg PO BID 60 tabs 2RF 30 days Counseling and coordination of Care Details: I spent [] minutes reviewing the record, seeing the patient and documenting in the medical record. Counseling provided to the patient/caregiver as outlined below. Addressed patient/caregiver concerns regarding current medication regime including effective adherence. Addressed patient/caregiver concerns regarding diagnosis and prognosis including accuracy of diagnosis, prognosis over time, impact of diagnosis. Addressed patient/caregiver concerns regarding impact of recent stressors. 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 Patient who was 22 yo found her and had to cut her down with help of his other brother Patient dropped out of college after sister and started into crime Legal hx: Incarcerat Substance History: Cocaine addiction, marijuana use Trauma History: Traumatic losses of 2 siblings (one to MVA, the other to suicide) Coding Level of Care Code Est Pt Level 4 (88779) Diagnoses ADHD, adult residual type F90.8 Other bipolar disorder F31.89 PTSD (post-traumatic stress disorder) F43.10 Cocaine abuse F14.10
== END 2023-12-17 15:36 | disposition home or self-care (01) ==
LOC: HO.HOP 15:04
PROVIDERS: PCP Hospitalist; Visit Provider Clinical Nurse Specialist Psychiatric/Mental Health
DX: F90.8 Attention-deficit hyperactivity disorder, other type (principal); F31.89 Other bipolar disorder; F43.10 Post-traumatic stress disorder, unspecified; F14.10 Cocaine abuse, uncomplicated
CPT/HCPCS: 99214

== ENCOUNTER → 2023-12-17 15:04 | Outpatient (BNVA) | payer OTHER, SELFPAY | PROVIDERS: PCP Hospitalist; Visit Provider Clinical Nurse Specialist Psychiatric/Mental Health ==

== ENCOUNTER 2024-02-10 15:40 | Outpatient (AMB) | payer OTHER, SELFPAY ==
--- NOTE | 2024-02-10 15:52 | A.OFFPSYCH_ITS ---
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 I reviewed paperwork from hospital with DC plan; pt denies SI or HI; he has a list of goals he is working on; He is contacting friends for support; he is looking for a new therapist. Pt does have plus 1 tremor in hands bilaterally- he says worse when anxious but goes away when calmer; will monitor and may start propranolol if needed Past Psychiatric History: IPLOC x1 spent ~ 2weeks at [facility] Previous trials of Zoloft in long term, no previous medication trials Subjective Subjective Subjective Medication Compliance: Yes Side effects from medications: No Review of Systems Medical Review of Systems: unchanged Mental Status Exam Mental Status Exam Narrative: weight 142# height 5'7 Patient Appearance: Well Grooomed Patient Orientation: Person, Place, Time and Situation Level of Consciousness: Awake, Appropriate and Alert Patient Behavior: Restless and Anxious Mood Description: Anxious and Sad Affect Description: Anxious and Sad Patient Cognition Impaired: No Ability to Follow Directions: Good Speech Pattern: Clear, Appropriate and Excessive Memory Description: Intact Hallucinations: None Delusions: Not Present Thought Process: Intact and Distracted Thought Content: positive for Intact, positive for Circumstantial and positive for Loose Associations Judgement: Good Assessment and Plan Assessment & Plan (1) OCD (obsessive compulsive disorder): Status: Acute Qualifiers: Obsessive-compulsive disorder type: mixed obsessional thoughts and acts Qualified Code(s): F42.2 - Mixed obsessional thoughts and acts Code(s): F42.9 - Obsessive-compulsive disorder, unspecified (2) ADHD, adult residual type: Status: Acute Code(s): F90.8 - Attention-deficit hyperactivity disorder, other type (3) PTSD (post-traumatic stress disorder): Status: Acute Code(s): F43.10 - Post-traumatic stress disorder, unspecified (4) Other bipolar disorder: Status: Acute Code(s): F31.89 - Other bipolar disorder Plan continue medications per below return in 2 weeks continue to search for therapist Medications: New bupropion HCl XL (Wellbutrin XL) 150 mg PO QAM 30 tabs 0RF Changed From escitalopram oxalate (Lexapro) 5 mg PO DAILY 30 tabs 0RF To escitalopram oxalate (Lexapro) 7.5 mg (1.5 x 5 mg) PO DAILY 45 tabs 0RF From lithium carbonate 300 mg PO BID 60 caps 0RF To lithium carbonate 300 mg PO TID 90 caps 0RF Counseling and coordination of Care Pt. Self Management counseling: Maintenance-social rhythm, Med illness tx adherence, Nutrition education and improvement, Behavior activation and Problem solving Medication management counseling: Effectiveness, Side effects, Dosing range, Duration, Drug interaction and Adherence Diagnosis and Prognosis Counseling: Accuracy of diagnosis, Prognosis over time, Impact of diagnosis on life functions, Impact of family relationship, Problematic behaviors secondary to diagnosis and Adequacy of current intervent ions Details: I spent 45 minutes reviewing the record, seeing the patient and documenting in the medical record. Counseling provided to the patient/caregiver as outlined below. Addressed patient/caregiver concerns regarding current medication regime including effective adherence. Addressed patient/caregiver concerns regarding diagnosis and prognosis including accuracy of diagnosis, prognosis over time, impact of diagnosis. Addressed patient/caregiver concerns regarding impact of recent stressors. [facility] Medical History (Updated 11/19/23 @ 16:40 by Briseida Polo APRN) Poor dentition Testicular cyst Social History Household Members: Spouse and Other Household Members Other:: 2 Dogs Patient Tobacco Use Status: Current everyday Tobacco user Tobacco use type: Cigarette Social History: Lives at home with who is supportive and is a [employer] [place] employee Patient maintains some [employer] employment Had an older brother (10 yo) who was killed in MVA by drunk screw driver operator when patient was in elementary school, and younger sister (who was 16 yo) who hung herself from a tree [place]. Patient who was 22 yo found her and had to cut her down with help of his other brother Patient dropped out of college after sister and started into crime Legal hx: Incarcerat Substance History: Cocaine addiction, marijuana use Trauma History: Traumatic losses of 2 siblings (one to MVA, the other to suicide) Coding Level of Care Code Est Pt Level 5 (21400) Diagnoses Mixed obsessional thoughts and acts F42.2 Obsessive-compulsive disorder type: mixed obsessional thoughts and acts ADHD, adult residual type F90.8 PTSD (post-traumatic stress disorder) F43.10 Other bipolar disorder F31.89
== END 2024-02-10 16:20 | disposition home or self-care (01) ==
LOC: HO.HOP 15:40
PROVIDERS: PCP Hospitalist; Visit Provider Clinical Nurse Specialist Psychiatric/Mental Health
DX: F42.2 Mixed obsessional thoughts and acts (principal); F90.8 Attention-deficit hyperactivity disorder, other type; F43.10 Post-traumatic stress disorder, unspecified; F31.89 Other bipolar disorder
CPT/HCPCS: 99215

== ENCOUNTER 2024-02-24 15:40 | Outpatient (AMB) | payer OTHER, SELFPAY ==
--- NOTE | 2024-02-24 15:49 | A.OFFPSYCH_ITS ---
Intake Intake Visit Reasons: f/u consultation Dish Carrier Required: No Allergies tuna oil Allergy (Verified 07/02/23 13:25) Vomiting Medication List - Last Reconciled 02/24/24 by Briseida Polo APRN bupropion HCl XL (Wellbutrin XL) 150 mg PO QAM escitalopram oxalate (Lexapro) 7.5 mg (1.5 x 5 mg) PO DAILY lithium carbonate 300 mg PO TID HPI- Psychiatric Chief Complaint: f/u consultation HPI Narrative: pt mood improved. anxiety still high. PHQ9= 5 and GAD7= 10. He reports worry, anxious, nervousness, trouble relaxing and feeling restless. Pt has a plus 1 bilateral tremor of hands. no nausea, no vomiting, no GI upset. no shufflinf. discssed propranolol for tremor and rationale for blood work ordered.. Past Psychiatric History: IPLOC x2 spent ~ 2weeks at [facility] the first time and 6 days 2nd time Previous trials of Zoloft in correction, no previous medication trials Subjective Subjective Subjective Medication Compliance: Yes Side effects from medications: No Review of Systems Medical Review of Systems: unchanged Mental Status Exam Mental Status Exam Patient Appearance: Well Grooomed and Appropriate Patient Orientation: Person, Place, Time and Situation Level of Consciousness: Awake and Appropriate Patient Behavior: Appropriate and Cooperative Mood Description: Happy Affect Description: Happy and Anxious Patient Cognition Impaired: No Speech Pattern: Clear Memory Description: Intact Hallucinations: None Delusions: Not Present Thought Process: Intact Thought Content: positive for Intact Judgement: Good Assessment and Plan Assessment & Plan (1) OCD (obsessive compulsive disorder): Status: Acute Qualifiers: Obsessive-compulsive disorder type: mixed obsessional thoughts and acts Qualified Code(s): F42.2 - Mixed obsessional thoughts and acts Code(s): F42.9 - Obsessive-compulsive disorder, unspecified (2) ADHD, adult residual type: Status: Acute Code(s): F90.8 - Attention-deficit hyperactivity disorder, other type (3) PTSD (post-traumatic stress disorder): Status: Acute Code(s): F43.10 - Post-traumatic stress disorder, unspecified (4) Bipolar II disorder: Status: Acute Code(s): F31.81 - Bipolar II disorder Plan meds per below labs ordered lithium level, CMP, CBC, tsh Medications: New propranolol 10 mg (1/2 x 20 mg) PO BID 60 tabs 1RF Refilled escitalopram oxalate (Lexapro) 7.5 mg (1.5 x 5 mg) PO DAILY 45 tabs 0RF lithium carbonate 300 mg PO TID 90 caps 0RF bupropion HCl XL (Wellbutrin XL) 150 mg PO QAM 30 tabs 0RF Orders: Orders [facility] Z79.899 - Other halfway (current) drug therapy Counseling and coordination of Care Pt. Self Management counseling: Breathing, Maintenance-social rhythm, Mod caffeine/ETOH intake, Sleep hygiene, Behavior activation, General coping skills and Problem solving Medication management counseling: Effectiveness, Side effects, Dosing range, Duration, Drug interaction and Adherence Diagnosis and Prognosis Counseling: Accuracy of diagnosis, Prognosis over time, Impact of diagnosis on life functions, Impact of family relationship, Problematic behaviors secondary to diagnosis and Adequacy of current int erventions Details: I spent 30 minutes reviewing the record, seeing the patient and documenting in the medical record. Counseling provided to the patient/caregiver as outlined below. Addressed patient/caregiver concerns regarding current medication regime including effective adherence. Addressed patient/caregiver concerns regarding diagnosis and prognosis including accuracy of diagnosis, prognosis over time, impact of diagnosis. Addressed patient/caregiver concerns regarding impact of recent stressors. [facility] Medical History (Updated 02/24/24 @ 16:34 by Briseida Polo APRN) Poor dentition Testicular cyst Social History Household Members: Spouse and Other Household Members Other:: 2 Dogs Patient Tobacco Use Status: Current everyday Tobacco user Tobacco use type: Cigarette Social History: Lives at home with who is supportive and is a [employer] [place] Patient maintains some [employer] employment Had an older brother (10 yo) who was killed in MVA by drunk driver material handler when patient was in elementary school, and younger sister (who was 16 yo) who hung herself [place] a [place]. Patient who was 22 yo found her and had to cut her down with help of his other brother Patient dropped out of college after sister and started into crime Legal hx: Incarcerat Substance History: Cocaine addiction, marijuana use Trauma History: Traumatic losses of 2 siblings (one to MVA, the other to suicide) Coding Level of Care Code Est Pt Level 4 (63687) Diagnoses Mixed obsessional thoughts and acts F42.2 Obsessive-compulsive disorder type: mixed obsessional thoughts and acts ADHD, adult residual type F90.8 PTSD (post-traumatic stress disorder) F43.10 Bipolar II disorder F31.81
--- OUTSIDE RECORDS SUMMARY | 2024-02-24 19:40 | XMS_ITS | Patient Health Record ---
Author Organization [employer] Address [address] [place] [address] Care Team Providers Care Extrusion Bender Name Role Phone GRAHAM RUBIOORTEGA Primary Care Provider Allergies No Known Allergies Reason For Referral No Information Medications Medication SIG (Take, Route, Fr equency, Duration) Notes Start Date End Date Status Clindamycin HCl 300 MG 2 capsules Orally every 8 hrs for 7 days 09/10/2018 Active Social History Tobacco Use: Social History Observation Description Date Details (start date - stop date) Current Smoker NA - NA Tobacco Use/Smoking Question Answer Notes Are you a current smoker How often do you smoke cigarettes? every day How many cigarettes a day do you smoke? 6-10 Alcohol Screen (Audit-C) Question Answer Notes Did you have a drink containing alcohol in the p ast year? No Points 0 Interpretation Negative Problems Problem Type SNOMED Code ICD Code Onset Dates Problem Status W/U Status Risk Notes Problem Tobacco user (936784511) Nicotine dependence, unspecified, uncomplicated (F17.200) Active confirmed Problem Generalized anxiety disorder (59431652) Generalized anxiety disorder (F41.1) Active confirmed Problem Seasonal allergic rhinitis (784230816) Other seasonal allergic rhinitis (J30.2) Active confirmed Problem Dental caries (64337998) Dental caries, unspecified (K02.9) Active confirmed Problem Adult health examination (244006511) Encounter for general adult medical examination without abnormal findings (Z00.00) Active confirmed Plan Of Treatment Future Test Test Name Order Date Lipid Panel 05/13/2018 CBC 05/13/2018 COMPREHENSIVE METABOLIC PANEL 05/13/2018 Insurance Providers Payer Name Payer Address Payer Phone Subscriber Number Group Number Insured Name Patient Relationship to Insured Coverage Start Date Coverage End Date [employer] [facility] [address] [address] [place] [phone] [id number] Rudy Rodriguez Self - patient is the insured Medical (General) History Medical History History ICD Code Anxiety disorder PTSD Surgical History Surgery Date(Month/Year) bacterial infection in right ankle WHEN 4 YO
--- OUTSIDE RECORDS SUMMARY | 2024-02-24 19:40 | XMS_ITS ---
Author Name [facility] Organization Unknown Results Test Name/Text Value Interpretation Date Range Source FLUBV RNA Nph Ql KRISTEN+probe Negative Normal [id number] [facility] FLUAV RNA Nph Ql KRISTEN+probe Negative Normal [facility] RSV RNA Resp Ql KRISTEN+probe Negative Normal [facility] SARS-CoV-2 RNA Resp Ql KRISTEN+probe Negative Normal [facility] Ethanol SerPl-mCnc 10mg/dL Normal 0 - 10 [facility] ALP SerPl-cCnc 58unit/L Normal 34 - 104 [facility] Glucose SerPl-mCnc 100mg/dL Normal 70 - 199 [facility] Chloride SerPl-sCnc 99mmol/L Normal 98 - 107 [facility] BUN SerPl-mCnc 19mg/dL Normal 9 - 20 [facility] Calcium SerPl-mCnc 9.2mg/dL Normal 8.4 - 10.2 [facility] Anion Gap SerPl-sCnc 6 Normal [id number] 5 - 14 [facility] Sodium SerPl-sCnc 135mmol/L Normal [id number] 135 - 145 [facility] eGFRcr SerPlBld CKD-EPI 2020 97mL/min/1.73m2 Normal [id number] - [facility] CO2 SerPl-sCnc 30mmol/L Normal 24 - 32 [facility] Albumin SerPl-mCnc 4.7g/dL Normal 3.5 - 5 [facility] Potassium SerPl-sCnc 3.8mmol/L Normal 3.5 - 5.1 [facility] AST SerPl-cCnc 19unit/L Normal [id number] 5 - 40 [facility] Creat SerPl-mCnc 1.02mg/dL Normal [id number] 0.7 - 1.3 [facility] BUN/Creat SerPl 18.6 Normal [id number] 12 - 20 [facility] ALT SerPl-cCnc 9unit/L Normal [id number] 7 - 52 [facility] Bilirub SerPl-mCnc 0.6mg/dL Normal [id number] 0.3 - 1 [facility] Prot SerPl-mCnc 7.3g/dL Normal [id number] 6.4 - 8.5 [facility] MCH RBC Qn Auto 29.8pcg Normal [id number] 25 - 33 [facility] RBC # Bld Auto 4.5M/mcL Below low normal [id number] 4.7 - 6 [facility] Lymphocytes # Bld Auto 1.95K/mcL Normal 1 - 3.2 [facility] Neutrophils/leuk NFr Bld Auto 69.9% Normal [id number] 44 - 74 [facility] Basophils # Bld Auto 0.03K/mcL Normal 0 - 0.2 [facility] Lymphocytes/leuk NFr Bld Auto 22.7% Normal 20 - 48 [facility] PMV Bld Auto 9.4FL Normal [id number] 7.4 - 11.4 [facility] Monocytes/leuk NFr Bld Auto 4.3% Normal [id number] 2 - 12 [facility] Basophils/leuk NFr Bld Auto 0.3% Normal [id number] 0 - 2 [facility] MCHC RBC Auto-mCnc 34.2g/dL Normal 32 - 36 [facility] Monocytes # Bld Auto 0.37K/mcL Normal 0 - 0.8 [facility] Hct VFr Bld Auto 39.2% Below low normal [id number] 40 - 54 [facility] Eosinophil/leuk NFr Bld Auto 2.6% Normal [id number] 0 - 6 [facility] Neutrophils # Bld Auto 6.01K/mcL Normal [id number] 1.8 - 7.8 [facility] Platelet # Bld Auto 238K/mcL Normal [id number] 150 - 450 [facility] RDW RBC Auto-Rto 12% Below low normal [id number] 12.1 - 17.7 [facility] Eosinophil # Bld Auto 0.22K/mcL Normal [id number] 0 - 0.5 [facility] Hgb Bld-mCnc 13.4g/dL Below low normal [id number] 13.5 - 18 [facility] MCV RBC Auto 87.1FL Normal [id number] 78 - 100 [facility] WBC # Bld Auto 8.6K/mcL Normal [id number] 4 - 10.5 [facility] fentaNYL Ur Ql Negative Normal [id number] - [facility] Benzodiaz Ur Ql Scn Positive Abnormal [id number] - [facility] Cocaine Ur Ql Scn Positive Abnormal [id number] - [facility] Amphet Ur Ql Scn Negative Normal [id number] - [facility] Barbiturates Ur Ql Scn Negative Normal [id number] - [facility] oxyCODONE Ur Ql Scn Negative Normal [id number] - [facility] Cannabinoids Ur Ql Scn Positive Abnormal [id number] - [facility] PCP Ur Ql Scn Negative Normal [id number] - [facility] Opiates Ur Ql Scn Negative Normal [id number] - [facility] A.PHAGOCYTOPHILUM, IGG <1:64 Normal - [facility] INTERPRETATION SEE BELOW Normal - [facility] A.PHAGOCYTOPHILUM, IGM <1:20 Normal - [facility] LYME AB SCREEN (IGG/IGM) Normal [id number] - [facility] THICK SMEAR FOR BABESIOSIS NEGATIVE Normal - [facility] THIN SMEAR FOR BABESIOSIS NEGATIVE Normal - [facility] ALBUMIN 3.2g/dL Below low normal 3.4 - 5 [facility] SODIUM 141mmol/L Normal 136 - 145 [facility] H GLUCOSE 113mg/dL Above high normal 74 - 100 [facility] BUN 14mg/dL Normal 7 - 18 [facility] H BILIRUBIN,TOTAL 0.5mg/dL Normal 0.2 - 1 [facility] CHLORIDE 109mmol/L Above high normal 98 - 107 [facility] POTASSIUM SERUM 3.8mmol/L Normal 3.5 - 5.1 [facility] CO2 26mmol/L Normal 21 - 32 [facility] H ALKALINE PHOSPHATASE 91U/L Normal 50 - 136 [facility] AST (SGOT) 42U/L Above high normal 15 - 37 [facility] GLOBULIN 2.8g/dL Normal 2.4 - 4.2 [facility] H A/G RATIO 1.1g/dL Normal [facility] H ALT (SGPT) 62U/L Normal 12 - 78 [facility] MH BUN/CREAT.RATIO 20 Normal C [facility] CREATININE 0.7mg/dL Normal 0.55 - 1.3 [facility] PROTEIN, TOTAL 6g/dL Below low normal 6.4 - 8.2 [facility] GFRE 136 Normal 60 - [facility] H WBC 5.9K/uL Normal 3.7 - 10.3 [facility] ABSOLUTE GRANULOCYTES 1.7K/uL Below low normal 2.2 - 7.3 [facility] ABSOLUTE BASO 0.1K/uL Normal 0 - 0.2 [facility] IMMATURE GRANULOCYTES 0% Normal 0 - 0.45 [facility] NUCLEATED RBC 0% Normal 0 - 0.2 [facility] MCH 29PG Normal 27 - 34 [facility] H MONOCYTES 10% Normal 0 - 12 [facility] H ABSOLUTE IMMATURE GRANULOCYTES 0K/uL Normal 0 - 0.3 [facility] HGB 13.6g/dL Normal [id number] 13.5 - 18 [facility] H RBC 4.65M/uL Normal [id number] 4.3 - 6 [facility] H EOSINOPHILS 1% Normal [id number] 0 - 6 [facility] MMH MPV 11fL Normal [id number] 8 - 12 [facility] H ABSOLUTE MONOS 0.6K/uL Normal [id number] 0.2 - 1.5 CT [facility] BASOPHILS 1% Normal [id number] 0 - 2 [facility] H MCV 83fL Normal [id number] 83 - 102 [facility] H IMMATURE PLATELET FRACTION 7.1% Above high normal [id number] 1 - 7 [facility] HCT 38.8% Below low normal [id number] 40 - 52 [facility] ABSOLUTE LYMPHS 3.5K/uL Normal [id number] 1.5 - 4.9 C [facility] GRANULOCYTES 29% Normal [id number] 23 - 78 [facility] ABSOLUTE EOS 0.1K/uL Normal [id number] 0 - 0.7 [facility] LYMPHS 59% Above high normal [id number] 16 - 50 [facility] RDW 13.3% Normal [id number] 11.1 - 13.3 [facility] PLATELET COUNT 79K/uL Below low normal [id number] 150 - 480 [facility] MCHC 35.1g/dL Normal [id number] 31 - 36 [facility] H ABSOLUTE NUCLEATED RBC 0K/uL Normal [id number] 0 - 0.012 [facility] PATIENT FASTING? YES Normal [id number] [facility] 55 Below low normal [id number] 60 - [facility] SODIUM 131mmol/L Below low normal [id number] 136 - 145 [facility] GLUCOSE 129mg/dL Above high normal [id number] 74 - 100 [facility] BUN 31mg/dL Above high normal [id number] 7 - 18 [facility] CHLORIDE 101mmol/L Normal [id number] 98 - 107 [facility] POTASSIUM SERUM 3.6mmol/L Normal [id number] 3.5 - 5.1 C [facility] CO2 24mmol/L Normal [id number] 21 - 32 [facility] CREATININE 1.54mg/dL Above high normal [id number] 0.55 - 1.3 [facility]? YES Normal [id number] [facility] ALBUMIN 4.1g/dL Normal 3.4 - 5 [facility] H SODIUM 130mmol/L Below low normal 136 - 145 [facility] GLUCOSE 115mg/dL Above high normal 74 - 100 [facility] BUN 29mg/dL Above high normal 7 - 18 [facility] BILIRUBIN,TOTAL 0.6mg/dL Normal 0.2 - 1 C [facility] CHLORIDE 97mmol/L Below low normal 98 - 107 [facility] POTASSIUM SERUM 4mmol/L Normal 3.5 - 5.1 [facility] CO2 27mmol/L Normal 21 - 32 [facility] ALKALINE PHOSPHATASE 125U/L Normal 50 - 136 [facility] AST (SGOT) 72U/L Above high normal 15 - 37 [facility] GLOBULIN 3.2g/dL Normal 2.4 - 4.2 [facility] H A/G RATIO 1.3g/dL Normal [facility] ALT (SGPT) 98U/L Above high normal 12 - 78 [facility] BUN/CREAT.RATIO 17.7 Normal [facility] 1.64mg/dL Above high normal 0.55 - 1.3 [facility] PROTEIN, TOTAL 7.3g/dL Normal 6.4 - 8.2 CT [facility] GFRE 51 Below low normal [id number] 60 - [facility] WBC 5.2K/uL Normal [id number] 3.7 - 10.3 [facility] ABSOLUTE GRANULOCYTES 4.4K/uL Normal 2.2 - 7.3 [facility] ABSOL[facility] BASO 0K/uL Normal [id number] 0 - 0.2 CTP R IMMATURE GRANULOCYTES 0% Normal 0 - 0.45 [facility] NUCLEATED RBC 0% Normal 0 - 0.2 [facility] MCH 29PG Normal [id number] 27 - 34 [facility] H MONOCYTES 6% Normal [id number] 0 - 12 [facility] H ABSOLUTE IMMATURE GRANULOCYTES 0K/uL Normal [id number] 0 - 0.3 [facility] HGB 16.4g/dL Normal [id number] 13.5 - 18 [facility] H RBC 5.57M/uL Normal [id number] 4.3 - 6 [facility] H EOSINOPHILS 0% Normal [id number] 0 - 6 [facility] MPV 11fL Normal [id number] 8 - 12 [facility] ABSOLUTE MONOS 0.3K/uL Normal [id number] 0.2 - 1.5 CT [facility] BASOPHILS 0% Normal [id number] 0 - 2 [facility] H MCV 83fL Normal [id number] 83 - 102 [facility] H IMMATURE PLATELET FRACTION 3.9% Normal [id number] 1 - 7 [facility] HCT 46% Normal [id number] 40 - 52 [facility] H ABSOLUTE LYMPHS 0.5K/uL Below low normal [id number] 1.5 - 4.9 [facility] GRANULOCYTES 84% Above high normal [id number] 23 - 7 8 [facility] ABSOLUTE EOS 0K/uL Normal [id number] 0 - 0.7 [facility] LYMPHS 9% Below low normal [id number] 16 - 50 [facility] RDW 12.9% Normal [id number] 11.1 - 13.3 [facility] PLATELET COUNT 63K/uL Below low normal [id number] 150 - 480 [facility] MCHC 35.7g/dL Normal [id number] 31 - 36 [facility] H ABSOLUTE NUCLEATED RBC 0K/uL Normal [id number] 0 - 0.012 [facility] PATIENT FASTING? UNKNOWN Normal [id number] [facility] INFLUENZAE A/B VIRUS ANTIGEN NONE DETECTED Normal [id number] [facility] LITHIUM SERPL SCNC 0.1mmol/L Below low normal [id number] 0 .[facility] Clarity Ur Refract.auto CLOUDY Normal [id number] [facility] Prot Ur Ql Strip.auto NEGATIVE Normal - [facility] Glucose Ur Ql Strip.auto NEGATIVE Normal - [facility] Nitrite Ur Ql Strip.auto NEGATIVE Normal - [facility] Sp Gr Ur Strip.auto >1.030 Above high normal 1.005 - 1.03 [facility] Hgb Ur Ql Strip.auto TRACE Abnormal - [facility] Leukocyte esterase Ur Ql Strip.auto NEGATIVE Normal - [facility] Ketones Ur Ql Strip.auto 15mg/dL Abnormal - [facility] pH Ur Strip.auto 6 Normal 4.5 - [facility] SQUAMOUS NO./AREA URNS LPF 1/LPF Normal 0 - 5 [facility] RBC number/area UrnS Auto 1/HPF Normal 0 - 3 [facility] WBC number/area UrnS Auto 1/HPF Normal 0 - 5 [facility] Service [facility] XXX-Imp Cepheid GeneXpert (RT-PCR) [facility] Normal [id number] [facility] FLUBV RNA Nph Ql KRISTEN+non-probe NEGATIVE Normal [id number] [facility] RSV RNA Nph Ql KRISTEN+non-probe NEGATIVE Normal [id number] [facility] FLUAV RNA Nph Ql KRISTEN+non-probe NEGATIVE Normal [id number] [facility] BILIRUB SERPL MCNC 0.6mg/dL Normal [id number] 0.3 - 1 [facility] BILIRUB DIRECT SERPL MCNC 0.1mg/dL Normal [id number] 0 - 0.2 [facility] AMYLASE SERPL CCNC 38U/L Normal [id number] 29 - 103 [facility] CREAT SERPL MCNC 0.9mg/dL Normal [id number] 0.7 - 1.3 [facility] CALCIUM SERPL MCNC 9.5mg/dL Normal [id number] 8.4 - 10.2 [facility] SODIUM SERPL SCNC 137mmol/L Normal [id number] 135 - 145 [facility] ANION GAP SERPL SCNC 7mmol/L Normal [id number] 5 - 14 [facility] Glomerular filtration rate/1.73 sq M. predicted 114 Normal [id number] 60 - [facility] HCO3 SER SCNC 26mmol/L Normal [id number] 24 - 32 C[facility] GLUCOSE SERPL MCNC 106mg/dL Normal [id number] 70 - 199 [facility] BUN SERPL MCNC 13mg/dL Normal [id number] 9 - 20 [facility] CHLORIDE SERPL SCNC 104mmol/L Normal [id number] 98 - 107 [facility] POTASSIUM SERPL SCNC 4.1mmol/L Normal [id number] 3.5 - 5.1 [facility] LIPASE SERPL CCNC 25U/L Normal [id number] 11 - 82 [facility] LDH SERPL L TO P CCNC 166U/L Normal [id number] 125 - 220 [facility] AST SERPL CCNC 22U/L Normal [id number] 5 - 40 [facility] ALP SERPL-CCNC 54U/L Normal [id number] 34 - 104 [facility] ALT SERPL CCNC 10U/L Normal [id number] 7 - 52 [facility] PLATELET NO. BLD AUTO 253K/uL Normal [id number] 150 - 450 [facility] RBC NO. BLD AUTO 4.74M/uL Normal [id number] 4.7 - 6 [facility] NUCLEATED RBC 0% Normal [id number] 0 - 1 C[facility] LYMPHOCYTES NO. BLD AUTO 1.9K/uL Normal [id number] 1 - 3.2 [facility] EOSINOPHIL NO. BLD AUTO 0.1K/uL Normal [id number] 0 - 0.5 [facility] MCH RBC QN AUTO 30pg Normal [id number] 25 - 33 C [facility] MCHC RBC AUTO MCNC 35.9g/dL Normal [id number] 32 - 36 [facility] MONOCYTES NFR BLD AUTO 5% Normal [id number] 2 - 12 [facility] IMMATURE GRANULOCYTE, ABSOLUTE 0.02k/uL Normal [id number] - 0.1 [facility] LYMPHOCYTES NFR BLD AUTO 23.1% Normal [id number] 20 - 48 [facility] EOSINOPHIL NFR BLD AUTO 1% Normal [id number] 0 - 6 [facility] HGB BLD MCNC 14.2g/dL Normal [id number] 13.5 - 18 [facility] NEUTROPHILS NO. BLD AUTO 5.9K/uL Normal [id number] 1.8 - 7.8 [facility] WBC NO. BLD AUTO 8.4K/uL Normal [id number] 4 - 10.5 [facility] BASOPHILS NFR BLD AUTO 0.4% Normal [id number] 0 - 2 [facility] MONOCYTES NO. BLD AUTO 0.4K/uL Normal [id number] 0 - 0.8 [facility] MCV RBC AUTO 83.3fL Normal [id number] 78 - 100 [facility] SM NEUTROPHILS NFR BLD AUTO 70.3% Normal [id number] 44 - 74 [facility] IMMATURE GRANULOCYTE, PERCENT 0.2% Normal 0 - 1 [facility] BASOPHILS IN BLOOD BY AUTOMATED COUNT 0K/uL Normal [id number] 0 - 0.2 [facility] PMV BLD AUTO 9.5fL Normal [id number] 7.4 - 11.4 [facility] RDW RBC AUTO RTO 13% Normal [id number] 12.1 - 17.7 [facility] HCT VFR BLD AUTO 39.5% Below low normal [id number] 40 - 54 [facility] SPECIMEN SOURCE XXX URINE CLEAN CATCH Normal [id number] [facility] Amphet Ur Ql Scn NEGATIVE Normal [id number] - [facility] Barbiturates Ur Ql Scn NEGATIVE Normal [id number] - [facility] Cannabinoids Ur Ql Scn POSITIVE Abnormal [id number] - [facility] BZE Ur Ql Scn NEGATIVE Normal [id number] - [facility] SPECIMEN SOURCE XXX NASOPHARYNGEAL Normal [id number] [facility] History of Medication Use Medication Directions Dispensed Refills Start Date End Date Stat guanFACINE (INTUNIV) 24 Hour ER tablet 2 mg 2 mg, oral, Nightly, First dose on Alessandra 01/30/24 at 2100 02/06/2024 9 aborted escitalopram (LEXAPRO) tablet 7.5 mg 7.5 mg, oral, Daily, First dose (after last modification) on 02/02/24 at 0900 02/06/2024 9 active buPROPion XL (WELLBUTRIN XL) 150 mg 24 hr tablet Take 1 tablet (150 mg total) by mouth 1 (one) time each day. Do not crush, chew, or split. 02/06/2024 9 active hydrOXYzine HCL (ATARAX) 50 mg tablet Take 1 tablet (50 mg total) by mouth 3 (three) times a day for 10 days. 02/06/2024 9 active OXcarbazepine (TRILEPTAL) 600 mg tablet Take 1 tablet (600 mg total) by mouth 2 (two) times a day. 02/01/2024 9 active traZODone (DESYREL) tablet 50 mg 50 mg, oral, Nightly PRN, sleep, Starting on Sat01/30/24 at 1442 02/01/2024 active escitalopram (LEXAPRO) tablet 5 mg 5 mg, oral, Daily, First dose on Sat01/30/24 at 1025 02/01/2024 9 active buPROPion SR (WELLBUTRIN SR) 12 hr tablet 100 mg 100 mg, oral, 2 times daily, First dose on Sat01/30/24 at 1025, Do not crush, chew, or split. 02/01/2024 active nicotine polacrilex (NICORETTE) gum 2 mg 2 mg, buccal, Every 1 hour PRN, smoking cessation, Starting on Sat01/30/24 at 1441 02/01/2024 9 active lithium 300 mg capsule Take 1 capsule (300 mg total) by mouth 2 (two) times a day with meals. 02/01/2024 9 active escitalopram (LEXAPRO) 5 mg tablet Take 1 tablet (5 mg total) by mouth 1 (one) time each day. 02/01/2024 9 active guanFACINE (INTUNIV) 1 mg 24 Hour ER tablet Take 1 tablet (1 mg total) by mouth 1 (one) time each day. 02/01/2024 9 active hydrOXYzine HCL (ATARAX) tablet 50 mg 50 mg, oral, Every 6 hours PRN, anxiety, Starting on Sat01/30/24 at 1437 02/01/2024 9 active guanFACINE (TENEX) 1 mg tablet Take 2 tablets (2 mg total) by mouth at bedtime. 02/01/2024 9 active magnesium hydroxide (MILK OF MAGNESIA) 400 mg/5 mL suspension 30 mL 30 mL, oral, Daily PRN, constipation, Starting on Sat01/30/24 at 1440, 1st line for treatment of constipation - give scheduled if no bowel movement in past 24 hours 02/01/2024 9 active calcium carbonate (TUMS) chewable tablet 1,000 mg 1,000 mg, oral, 4 times daily PRN, heartburn, indigestion, Starting on Sat01/30/24 at 1441, Ordered as calcium carbonate. 500 mg calcium carbonate = 200 mg elemental calcium. 02/01/2024 9 active OXcarbazepine (TRILEPTAL) tablet 600 mg 600 mg, oral, 2 times daily, First dose on Sat01/30/24 at 1025, HAZARDOUS Drug Precautions - Low Risk (Category A/NIOSH Group 3) Reproductive Risk Only: - Single pair of ASTM standard D6978 certified chemotherapy gloves - Eye protection (goggles or face shield) required only with a potential for f 02/01/2024 9 active nicotine (NICODERM CQ) 21 mg/24 hr patch 1 patch 1 patch, transdermal, Administer over 24 Hours, Daily, First dose (after last reorder) on Sat01/30/24 at 1443 02/01/2024 9 active QUEtiapine (SEROquel) tablet 50 mg 50 mg, oral, Every 6 hours PRN, Agitation, Starting on Sat01/30/24 at 1441 02/01/2024 9 active acetaminophen (TYLENOL) tablet 650 mg 650 mg, oral, Every 6 hours PRN, mild pain, Starting on Sat01/30/24 at 1437 02/01/2024 9 active lithium (LITHOBID) CR tablet 300 mg 300 mg, oral, Daily, First dose on Sat01/30/24 at 1032, Do not crush, chew, or split. 02/01/2024 9 active thiamine mononitrate (VITAMIN B-1) tablet 100 mg 100 mg, Oral, Daily, First dose on Sat06/18/23 at 0900 06/29/2023 aborted escitalopram (LEXAPRO) tablet 5 mg 5 mg, Oral, Daily, First dose on Sat06/18/23 at 1215 06/29/2023 aborted escitalopram (LEXAPRO) tablet 10 mg Take 1 tablet (10 mg total) by mouth daily. 06/29/2023 active hydrOXYzine (ATARAX) tablet 50 mg 50 mg, Oral, Every 6 hours PRN, anxiety, anxiety/agitation, Starting on Sat06/18/23 at 0850 06/29/2023 active nicotine (NICODERM CQ) 7 MG/24HR 1 patch 1 patch, Transdermal, Administer over 24 Hours, Once, On Sat06/17/23 at 1400, For 1 dose 06/29/2023 aborted acetaminophen (TYLENOL) tablet 650 mg 650 mg, Oral, Every 6 hours PRN, moderate pain (4-6), Starting on Sat06/17/23 at 1916 06/29/2023 aborted magnesium hydroxide (MILK OF MAGNESIA) 400 MG/5ML suspension 30 mL 30 mL, Oral, 2 times daily PRN, constipation, Starting on Sat06/18/23 at 0850 06/29/2023 active lithium carbonate 150 MG capsule Take 1 capsule (150 mg total) by mouth every night at bedtime. 06/29/2023 aborted amoxicillin-clavulan ate (AUGMENTIN) 875-125 MG per tablet 1 tablet 1 tablet, Oral, Every 12 hours scheduled (2 times per day), First dose (after last modification) on Sat06/18/23 at 2100, For 12 doses 06/29/2023 completed folic acid (FOLVITE) tablet 1 mg 1 mg, Oral, Daily, First dose on Sat06/18/23 at 0900 06/29/2023 aborted naloxone (Narcan) 4 MG/0.1ML nasal spray spray or apply 4 mg inside Nose once as needed for up to 1 dose. 06/29/2023 active ondansetron (ZOFRAN-ODT) 4 MG disintegrating tablet 4 mg 4 mg, Oral, Every 6 hours PRN, nausea, Starting on Sat06/17/23 at 1130 06/29/2023 active haloperidol (HALDOL) tablet 5 mg [Order 1 Start] Name: haloperidol (HALDOL) tablet 5 mg Signed Summary: 5 mg, Oral, Every 2 hours PRN, agitation, PSYCHOTIC AGITATION, Starting on Sat06/18/23 at 0850 [Order 1 End] [Order 2 Start] Name: LORazepam (ATIVAN) tablet 2 mg Signed Summary: 2 mg, Oral, Every 2 hours PRN, PSYCHOTIC AGITATION, 06/29/2023 active traZODone (DESYREL) tablet 50 mg 50 mg, Oral, Every Night at Bedtime PRN, sleep, insomnia, Starting on Sat06/18/23 at 0850 06/29/2023 active nicotine (NICODERM CQ) 21 MG/24HR Place 1 patch onto the skin daily. 06/29/2023 active hydrOXYzine (ATARAX) tablet 25 mg 25 mg, Oral, 4 times daily PRN, anxiety, Starting on Sat06/17/23 at 1413 06/29/2023 aborted nicotine polacrilex (NICORETTE) 2 MG gum Use as directed 1 each (2 mg total) in the mouth or throat every hour as needed for smoking cessation (Nicotine craving). 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 H Cannabis use disorder, severe, dependence active 2023-06-18 ProblemAct [facility] Borderline personality disorder active 2023-06-18 ProblemAct [facility] Depression active EncounterDiagnosisAct [facility] Dental caries active EncounterDiagnosisAct [facility] Cannabis use disorder, severe, dependence active 2024-01-31 ProblemAct [facility] Borderline personality disorder active 2024-01-31 ProblemAct [facility] MDD (major depressive disorder), recurrent severe, 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 2024-01-30 ProblemAct [facility] PTSD (post-traumatic stress disorder) active 2024-01-31 ProblemAct [facility]
--- OUTSIDE RECORDS SUMMARY | 2024-02-24 19:40 | XMS_ITS | Continuity of Care Document ---
Author Organization [employer] Address [address] [address] Social History Not on File Plan of Treatment Not on file
== END 2024-02-24 16:13 | disposition home or self-care (01) ==
LOC: HO.HOP 15:40
PROVIDERS: PCP Hospitalist; Visit Provider Clinical Nurse Specialist Psychiatric/Mental Health
DX: F42.2 Mixed obsessional thoughts and acts (principal); F90.8 Attention-deficit hyperactivity disorder, other type; F43.10 Post-traumatic stress disorder, unspecified; F31.81 Bipolar II disorder
CPT/HCPCS: 99214

== ENCOUNTER → 2024-02-24 15:40 | Outpatient (BNVA) | payer OTHER, SELFPAY | PROVIDERS: PCP Hospitalist; Visit Provider Clinical Nurse Specialist Psychiatric/Mental Health ==

== ENCOUNTER 2024-03-17 14:49 | Outpatient (REF) | payer OTHER, SELFPAY ==
--- OUTSIDE RECORDS SUMMARY | 2024-03-17 14:52 | XMS_ITS | Clinical Summary ---
Author Organization [facility] Address [address] [place] [address] Care Team Providers Care Telephone Diaphragm Assembler Name Role Phone Pcp, No Primary Care Provider Unavailabl e Social History Tobacco Use Types Packs/Day Years Used Date Smoking Tobacco: Never Assessed Sex and Gender Information Value Date Recorded Sex Assigned at Not on file Gender Identity Not on file Sexual Orientation Not on file Plan of Treatment Health Maintenance Due Date Last Done Comments Hepatitis C Virus Screening 1986 HIV Screening 09/05/1999 DTaP/Tdap/Td Vaccines (1 - Tdap) 2005 Hepatitis B Vaccines (1 of 3 - 19+ 3-dose series) 2005 Influenza Vaccine 09/12/2023 COVID-19 Vaccine ( - 2023-2 5 season) 2023 HPV Vaccines Aged Out No longer eligi ble based on patient's age to complete this topic Pneumococcal Vaccine: Pediat truong (0-5 Years) and At-Risk Patients (6 to 49 Years) Aged Out No longer eligible b ased on patient's age to complete this topic Care Teams Telephone Diaphragm Assembler Relationship Specialty Start Date End Date Pcp, No PCP - General General Medicine 06/24/23
--- OUTSIDE RECORDS SUMMARY | 2024-03-17 14:52 | XMS_ITS | Clinical Summary ---
Author Organization [facility] Address [address] [place] [address] Phone Care Team Providers Care Ore Charger Name Role Phone Physician, No Pcp Primary Care Provider Unavaila ble Allergies Active Allergy Reactions Criticality Noted Date Comments Cheese 01/30/2024 Medications Medication Sig Dispensed Refills Start Date End Date Status guanFACINE (INTUNIV) 1 mg 24 Hour ER tablet Take 1 tablet (1 mg total) by mouth 1 (one) time each day. 12/20/2023 Active escitalopram (LEXAPRO) 5 mg tablet Take 1.5 tablets (7.5 mg total) by mouth 1 (one) time each day. 45 each 2 02/05/2024 05/05/2024 Active lithium 300 mg capsule Take 1 capsule (300 mg total) by mouth 3 (three) times a day with meals. 90 each 2 02/04/2024 05/04/2024 Active buPROPion XL (WELLBUTRIN XL) 150 mg 24 hr tablet Take 1 tablet (150 mg total) by mouth 1 (one) time each day. Do not crush, chew, or split. 30 each 11 02/05/2024 02/04/2025 Active hydrOXYzine HCL (ATARAX) 50 mg tablet Take 1 tablet (50 mg total) by mouth 3 (three) times a day for 10 days. 30 each 02/04/2024 Active nicotine (NICODERM CQ) 21 mg/[address] 1 patch on the skin 1 (one) time each day. 30 each 02/05/2024 Active Active Problems Problem Noted Date Diagnosed Date Borderline personality disorder 01/31/2024 Cannabis use disorder, severe, dependence 2023 PTSD (post-traumatic stress disorder) 01/31/2024 MDD (major depressive disord er), recurrent severe, without psychosis 01/30/2024 Encounters Date Type Department Care Team Description 01/30/2024 2:57 PM EST - 02/04/2024 2:45 PM EST Hospital Encounter [facility] [address] [place] [id number] Reese Herrera DO Discharge Disposition: Home or Self Care 01/29/2024 9:02 PM EST - 01/30/2024 2:56 PM EST Emergency [facility] Emergency [address] [place] [id number] Tomeka Mary MD Darko, Enoch O, MD Nicotine dependence with nicotine-induced disorder, unspecified nicotine product type (Primary Dx); Bipolar affective disorder, remission status unspecified ([facility]) Discharge Disposition: Admitted as an Inpatient from Last 3 Months Surgical History Surgery Date Site/Laterality Comments ANKLE SURGERY PROCEDURE:ANKLE SURGERY Medical History Medical History Date Comments Asthma DX:Asthma Social History Tobacco Use Types Packs/Day Years Used Date Smoking Tobacco: Never Smokeless Tobacco: Never Alcohol Use Standard Drinks/Week Comments Never 0 (1 standard drink = 0.6 oz pur e alcohol) Sex and Gender Information Value Date Recorded Sex Assigned at Male 01/29/2024 11:30 PM EST Gender Identity Male 01/29/2024 11:30 PM EST Sexual Orientation Not on file Job Start Date Occupation Industry Not on file Not on file Not on file Obstetrics History Last Filed Vital Signs Vital Sign Reading Time Taken Comments Blood Pressure 116/79 02/04/2024 8:00 AM EST Pulse 50 02/04/2024 8:00 AM EST Temperature 37.1 ??C (98.7 ??F) 02/04/2024 8:00 AM ES T Respiratory Rate 18 02/04/2024 8:00 AM EST Oxygen Saturation 99% 02/04/2024 8:00 AM EST Inhaled Oxygen Concentration - - Weight 63.3 kg (139 lb 9.6 oz) 02/02/2024 7:01 A M EST Height 170.2 cm (5' 7 ) 01/30/2024 5:00 PM EST Body Mass Index 21.86 01/30/2024 5:00 PM EST Plan of Treatment Health Maintenance Due Date Last Done Comments DTaP,Tdap,and Td Vaccines (1 - Tdap) 2005 Hepatitis B Vaccines (1 of 3 - 19+ 3-dose series) 2005 Cholesterol Screening (Lipid Panel) 03/12/2023 Depression Screening 03/12/2023 HIV Screening 03/12/2023 Hepatitis C Screening 03/12/2023 Social Influencers of Health Screening 03/12/2023 COVID-19 Vaccine ( - 2023-2 5 season) 2023 Influenza Vaccine (#1) 2023 HIB Vaccines Aged Out No longer eligi ble based on patient's age to complete this topic HPV Vaccines Aged Out No longer eligi ble based on patient's age to complete this topic Hepatitis A Vaccines Aged Out No long er eligible based on patient's age to complete this topic IPV Vaccines Aged Out No longer eligi ble based on patient's age to complete this topic MMR Vaccines Aged Out No longer eligi ble based on patient's age to complete this topic Meningococcal ACWY Vaccine Aged Out N o longer eligible based on patient's age to complete this topic Pneumococcal Vaccine: Pediat rics (0 to 5 Years) and At-Risk Patients (6 to 64 Years) Aged Out No longer eligible b ased on patient's age to complete this topic RSV Immunization Patients Un aye 20 months Aged Out No longer eligible b ased on patient's age to complete this topic Varicella Vaccines Aged Out No longer eligible based on patient's age to complete this topic Procedures Procedure Name Priority Date/Time Associated Diagnosis Comments LITHIUM LEVEL Timed 02/01/2024 7:48 AM EST [id number], RSV, FLU A AND B QUALITATIVE RT-PCR, INTERNAL LAB Routine 01/30/2024 10:59 AM EST CBC WITH AUTO DIFFERENTIAL STAT 01/29/2024 9:36 PM EST ETHANOL STAT 01/29/2024 9:36 PM EST COMPREHENSIVE METABOLIC PANEL STAT 01/29/2024 9:36 PM EST CBC AND DIFFERENTIAL STAT 01/29/2024 9:36 PM EST DRUG ABUSE SCREEN EXPANDED, URINE STAT 01/29/2024 9:27 PM EST from Last 3 Months Results * (ABNORMAL) [place] level (02/01/2024 7:48 AM EST) Pathologist [facility] [place] Level 0.3(L) 0.6 - 1.2 mEq/L LAB CHEMISTRY METHOD 02/01/2024 9:[address] [facility] Blood Venous blood specimen / Unknown Venipuncture / Unknown 02/01/2024 7:48 AM EST 02/01/2024 7:51 AM EST Reese Herrera DO LAB BLOOD ORDERABLES Performing Organization Address City/State/[facility] Co de Phone Number [facility] [address] [place] [address], * [id number], RSV, Influenza A and B qualitative RT-PCR (01/30/2024 10:59 AM EST) [facility] Influenza A PCR Negative Negative LAB MOLECULAR DIAGNOSTICS METHOD 01/30/2024 11:[address] [facility] Influenza B PCR Negative Negative LAB MOLECULAR DIAGNOSTICS METHOD 01/30/2024 11:[address] [facility] RSV PCR Negative Negative LAB MOLECULAR DIAGNOSTICS METHOD 01/30/2024 11:[address] [facility] SARS COV-2 Negative Negative LAB MOLECULAR DIAGNOSTICS METHOD 01/30/2024 11:[address] [facility] Swab Nasopharyngeal structure / Unknown Non-blood Collection / Unknown 01/30/2024 10:59 AM EST 01/30/2024 11:[address] [facility] - 01/30/2024 11:50 AM EST This test has been authorized by FDA under an emergency used authorization (EUA). This EUA will cease to be effective when declared by [facility] that circumstances exist to justify its termination under section 564(bB)(2) of the Federal Food, Drug, and Cosmetic Act (The Act) 21 U.S.C. 360bbb 30,or when the EUA is revoked under section 564 (g) of the Act. Testing was performed using the [employer] Xpert Xpress SARS-CoV2/FLU/RSV test. Negative results do not preclude SARS COV-2 test infection and should not be used as a sole basis for treatment or other patient management decisions. Negative results must be combined with clinical observation, patient history, and epidemiological information. Daniele Hunter MD LAB MICROBIOLOGY - [facility] ORDERABLES [facility] [address] [place] [address], * (ABNORMAL) CBC auto differential (01/29/2024 9:36 PM EST) WBC 8.6 4.0 - 10.5 K/mcL LAB HEMETOLOGY METHOD 01/29/2024 9:47 PM [facility] RBC 4.50(L) 4.70 - 6.00 M/mcL LAB HEMETOLOGY METHOD 01/29/2024 9:47 PM [facility] Hemoglobin 13.4(L) 13.5 - 18.0 g/dL LAB HEMETOLOGY METHOD 01/29/2024 9:47 PM [facility] Hematocrit 39.2(L) 40.0 - 54.0 % LAB HEMETOLOGY METHOD 01/29/2024 9:47 PM [facility] MCV 87.1 78.0 - 100.0 FL LAB HEMETOLOGY METHOD 01/29/2024 9:47 PM [facility] MCH 29.8 25.0 - 33.0 pcg LAB HEMETOLOGY METHOD 01/29/2024 9:47 PM [facility] MCHC 34.2 32.0 - 36.0 g/dL LAB HEMETOLOGY METHOD 01/29/2024 9:47 PM [facility] RDW 12.0(L) 12.1 - 17.7 % LAB HEMETOLOGY METHOD 01/29/2024 9:47 PM [facility] Platelets 238 150 - 450 K/mcL LAB HEMETOLOGY METHOD 01/29/2024 9:47 PM [facility] MPV 9.4 7.4 - 11.4 FL LAB HEMETOLOGY METHOD 01/29/2024 9:47 PM [facility] Neutrophils Relative 69.9 44.0 - 74.0 % LAB HEMETOLOGY METHOD 01/29/2024 9:47 PM [facility] Lymphocytes Relative 22.7 20.0 - 48.0 % LAB HEMETOLOGY METHOD 01/29/2024 9:47 PM [facility] Monocytes Relative 4.3 2.0 - 12.0 % LAB HEMETOLOGY METHOD 01/29/2024 9:47 PM [facility] Eosinophils Relative 2.6 0.0 - 6.0 % LAB HEMETOLOGY METHOD 01/29/2024 9:47 PM [facility] Basophils Relative 0.3 0.0 - 2.0 % LAB HEMETOLOGY METHOD 01/29/2024 9:47 PM [facility] Neutrophils Absolute 6.01 1.80 - 7.80 K/mcL LAB HEMETOLOGY METHOD 01/29/2024 9:47 PM [facility] Lymphocytes Absolute 1.95 1.00 - 3.20 K/mcL LAB HEMETOLOGY METHOD 01/29/2024 9:[address] [facility] Monocytes Absolute 0.37 0.00 - 0.80 K/mcL LAB HEMETOLOGY METHOD 01/29/2024 9:[address] [facility] Eosinophils Absolute 0.22 0.00 - 0.50 K/mcL LAB HEMETOLOGY METHOD 01/29/2024 9:[address] [facility] Basophils Absolute 0.03 0.00 - 0.20 K/mcL LAB HEMETOLOGY METHOD 01/29/2024 9:[address] [facility] Blood Venous blood specimen / Unknown Venipuncture / Unknown 01/29/2024 9:36 PM EST 01/29/2024 9:45 PM EST Tomeka Mary MD LAB BLOOD ORDERABLES [facility] [address] [place] [address], [place] [phone] * Ethanol (01/29/2024 9:36 PM EST) Ethanol Level <10 0 - 10 mg/dL LAB CHEMISTRY METHOD 01/29/2024 10:[address] [facility] Blood Venous blood specimen / Unknown Venipuncture / Unknown 01/29/2024 9:36 PM EST 01/29/2024 9:[address] [facility] - 01/29/2024 10:22 PM EST Medical Purpose Results of this test are to be used for medical purposes only Tomeka Mary MD LAB BLOOD ORDERABLES Performing Organization Address City/[facility]/ZIP Co de Phone Number [facility] [address] [place] [address], [place] [phone] * Comprehensive metabolic panel (01/29/2024 9:36 PM EST) [facility] Signature Sodium 135 135 - 145 mmol/L LAB CHEMISTRY METHOD 01/29/2024 10:22 PM [facility] Potassium 3.8 3.5 - 5.1 mmol/L LAB CHEMISTRY METHOD 01/29/2024 10:22 PM [facility] Chloride 99 98 - 107 mmol/L LAB CHEMISTRY METHOD 01/29/2024 10:22 PM [facility] CO2 30 24 - 32 mmol/L LAB CHEMISTRY METHOD 01/29/2024 10:22 PM [facility] Anion Gap 6 5 - 14 LAB CHEMISTRY METHOD 01/29/2024 10:22 PM [facility] Glucose 100 70 - 199 mg/dL LAB CHEMISTRY METHOD 01/29/2024 10:22 PM [facility] BUN 19 9 - 20 mg/dL LAB CHEMISTRY METHOD 01/29/2024 10:22 PM [facility] Creatinine 1.02 0.70 - 1.30 mg/dL LAB CHEMISTRY METHOD 01/29/2024 10:22 PM [facility] eGFR 97 >=60 mL/min/1. 73m2 LAB CHEMISTRY METHOD 01/29/2024 10:22 PM [facility] Comment:Calculation based on the??Chronic Kidney Disease Epidemiology Collaboration (CKD-EPI) equation refit??without adjustment for race. BUN/Creatinine Ratio 18.6 12.0 - 20.0 LAB CHEMISTRY METHOD 01/29/2024 10:22 PM [facility] Calcium 9.2 8.4 - 10.2 mg/dL LAB CHEMISTRY METHOD 01/29/2024 10:22 PM [facility] AST (SGOT) 19 5 - 40 unit/L LAB CHEMISTRY METHOD 01/29/2024 10:22 PM [facility] ALT (SGPT) 9 7 - 52 unit/L LAB CHEMISTRY METHOD 01/29/2024 10:22 PM [facility] Alkaline Phosphatase 58 34 - 104 unit/L LAB CHEMISTRY METHOD 01/29/2024 10:22 PM [facility] Total Protein 7.3 6.4 - 8.5 g/dL LAB CHEMISTRY METHOD 01/29/2024 10:22 PM [facility] Albumin 4.7 3.5 - 5.0 g/dL LAB CHEMISTRY METHOD 01/29/2024 10:22 PM [facility] Total Bilirubin 0.6 0.3 - 1.0 mg/dL LAB CHEMISTRY METHOD 01/29/2024 10:22 PM [facility] Blood Venous blood specimen / Unknown Venipuncture / Unknown 01/29/2024 9:36 PM EST 01/29/2024 9:45 PM EST Tomeka Mary MD LAB BLOOD ORDERABLES [facility] [address] [place] [address], * (ABNORMAL) Drug abuse screen expanded, urine (01/29/2024 9:27 PM EST) Amphetamine Negative Negative LAB CHEMISTRY METHOD 01/29/2024 9:43 PM [facility] Barbiturates Negative Negative LAB CHEMISTRY METHOD 01/29/2024 9:43 PM [facility] Benzodiazepine Positive(A) Negative LAB CHEMISTRY METHOD 01/29/2024 9:43 PM [facility] Cannabinoid (THC) Positive(A) Negative LAB CHEMISTRY METHOD 01/29/2024 9:43 PM [facility] Cocaine Positive(A) Negative LAB CHEMISTRY METHOD 01/29/2024 9:[address] [facility] Opiates Negative Negative LAB CHEMISTRY METHOD 01/29/2024 9:43 PM [facility] Phencyclidine (PCP) Negative Negative LAB CHEMISTRY METHOD 01/29/2024 9:[address] [facility] Oxycodone Negative Negative LAB CHEMISTRY METHOD 01/29/2024 9:[address] [facility] Fentanyl Negative Negative LAB CHEMISTRY METHOD 01/29/2024 9:43 PM [facility] Urine Urine specimen obtained by clean catch procedure / Unknown Non-blood Collection / Unknown 01/29/2024 9:27 PM EST 01/29/2024 9:30 PM EST [facility] - 01/29/2024 9:43 PM EST URINE DRUGS OF ABUSE CUTOFF CONCENTRATIONS: Amphetamines ?1000 ng/mL Barbiturates ?200 ng/mL Benzodiazepine ?? 200 ng/mL Cannabinoids ?50 ng/mL Benzoylecgonine ??300 ng/mL Opiates ?300 ng/mL Phencyclidine ? 25 ng/mL Oxycodone ?100 ng/mL Fentanyl ? 1 ng/mL Positive results are presumptive (unconfirmed) and are to be used for medical purposes only. Tomeka Mary MD LAB URINE ORDERABLES [facility] [address] [place] [address], from Last 3 Months Advance Directives * Full Code - Default (Latest Code Status on File) Date Activated Date Inactivated Comments 01/30/2024 4:20 PM 02/04/2024 5:36 PM This is or aye is used when code status has not been discussed with the patient, or code status is otherwise unknown/unconfirmed To update the patient's code status, place a code status order. Do not modify or discontinue any currently active code status orders. * Full Code - Default Date Activated Date Inactivated Comments 01/30/2024 2:41 PM 01/30/2024 3:00 PM This is or aye is used when code status has not been discussed with the patient, or code status is otherwise unknown/unconfirmed To update the patient's code status, place a code status order. Do not modify or discontinue any currently active code status orders. Care Teams Ore Charger Relationship Specialty Start Date End Date Physician, No Pcp PCP - General 01/29/24
[2024-03-17 15:07] LABS: MANUAL DIFF FLAG NO
[2024-03-17 15:40] LABS: Basophils Absolute Auto 0.1 X10*3/uL (0.0-0.2); Basophils Percent Auto 0.5 % (0-2); Eosinophils Absolute Auto 0.6 X10*3/uL (0.0-0.4); Eosinophils Percent Auto 6.1 % (0-4); Hematocrit 42.6 % (42.0-52.0); Hemoglobin 14.6 g/dl (14.0-18.0); Imm Gran Abs Auto 0.03 X10*3/uL (0.00-0.03); Imm Gran Pct Auto 0.3 % (0.0-0.4); Lymphocytes Absolute Auto 2.3 X10*3/uL (1.2-4.9); Lymphocytes Percent Auto 23.6 % (20-40); Mean Corpuscular HGB Conc 34.3 g/dl (31.0-36.0); Mean Corpuscular Hemoglobin 29.8 pg (27.0-33.0); Mean Corpuscular Volume 86.9 fL (80.0-98.0); Mean Platelet Volume 9.2 fL (9.4-12.4); Monocytes Absolute Auto 0.6 X10*3/uL (0.1-1.2); Monocytes Percent Auto 6.1 % (2-11); Neutrophils Absolute Auto 6.3 x10*3/uL (2.0-8.3); Neutrophils Percent Auto 63.4 % (45-73); Platelet Count 222 X10*3/uL (160-400); Red Cell Distribution Width 12.7 % (11.0-16.0); White Blood Count 9.9 X10*3/uL (4.8-10.8)
[2024-03-17 17:02] LABS: Alanine Aminotransferase 21 U/L (0-40); Albumin Level 4.4 g/dL (3.5-5.0); Alkaline Phosphatase 55 U/L (39-117); Anion Gap 13 (12-20); Aspartate Amino Transferase 20 U/L (5-37); Bilirubin Total 0.6 mg/dL (0.0-1.0); Blood Urea Nitrogen 9 mg/dL (9-16); Calcium 9.3 mg/dL (8.4-10.2); Carbon Dioxide 27 mmol/L (22-29); Chloride 104 mmol/L (96-108); Estimated Glomerular Filt Rate > 60; Glucose Fasting 109 mg/dL (60-99); Potassium 4.2 mmol/L (3.3-5.1); Sodium 140 mmol/L (135-145); Total Protein 7.1 g/dL (6.5-8.0)
[2024-03-17 17:04] LABS: TSH reflex Free T4 5.91 uIU/mL (0.32-4.0)
[2024-03-17 17:18] LABS: Lithium 0.73 mmol/L (0.60-1.20)
== END 2024-03-17 14:50 | disposition home or self-care (01) ==
LOC: HO.LAB 14:49
PROVIDERS: Visit Provider Clinical Nurse Specialist Psychiatric/Mental Health
DX: Z79.899 Other long term (current) drug therapy (principal)
CPT/HCPCS: 36415; 80053; 80178; 84439; 84443; 85025

== ENCOUNTER 2024-03-17 15:07 | Outpatient (AMB) | payer OTHER, SELFPAY ==
--- OUTSIDE RECORDS SUMMARY | 2024-03-17 15:09 | XMS_ITS | Clinical Summary ---
Author Organization [facility] Address [address] [place] [id number] Care Team Providers Care Metalizing Supervisor Name Role Phone Unavailable Primary Care Provider Unavailabl e Allergies No known active allergies Medications Medication Sig Dispensed Refills Start Date End Date Status escitalopram (LEXAPRO) tablet 10 mgIndications:Major Depressive Disorder Take 1 tablet (10 mg total) by mouth daily. 30 tablet 0 06/28/2023 Active lithium carbonate 150 MG capsuleIndications: Major Depressive Disorder Take 1 capsule (150 mg total) by mouth every night at bedtime. 30 capsule 0 06/27/2023 Active nicotine (NICODERM CQ) 21 MG/24HRIndications: Nicotine Dependence Place 1 patch onto the skin daily. 28 patch 0 06/28/2023 Active nicotine polacrilex (NICORETTE) 2 MG gumIndications:Fernando javed Dependence Use as directed 1 each (2 mg total) in the mouth or throat every hour as needed for smoking cessation (Nicotine craving). 100 each 0 06/27/2023 Active traZODone (DESYREL) 50 MG tabletIndications:I nsomnia Take 1 tablet (50 mg total) by mouth every night at bedtime as needed for sleep. 30 tablet 0 06/27/2023 Active naloxone (Narcan) 4 MG/0.1ML nasal sprayIndications:Op ioid Overdose spray or apply 4 mg inside Nose once as needed for up to 1 dose. 2 each 0 06/27/2023 Active Active Problems Problem Noted Date Diagnosed Date PTSD (post-traumatic stress disorder) 06/18/2023 Cannabis use disorder, severe, dependence 2023 MDD (major depressive disord er), recurrent severe, without psychosis 06/18/2023 Borderline personality disorder 06/18/2023 Social History Tobacco Use Types Packs/Day Years Used Date Smoking Tobacco: Never Smokeless Tobacco: Never Tobacco Cessation:Counseling Given: No Alcohol Use Standard Drinks/Week Comments Never 0 (1 standard drink = 0.6 oz pur e alcohol) Sex and Gender Information Value Date Recorded Sex Assigned at Male 06/17/2023 10:30 AM EDT Gender Identity Male 06/18/2023 10:01 AM EDT Sexual Orientation Straight 06/18/2023 10 :01 AM EDT Job Start Date Occupation Industry Not on file Not on file Not on file Last Filed Vital Signs Vital Sign Reading Time Taken Comments Blood Pressure 119/81 06/27/2023 8:24 AM EDT Pulse 97 06/27/2023 8:24 AM EDT Temperature 36 ??C (96.8 ??F) 06/27/2023 8:24 AM EDT Respiratory Rate 16 06/27/2023 8:24 AM EDT Oxygen Saturation 99% 06/27/2023 8:24 AM EDT Inhaled Oxygen Concentration - - Weight 63.5 kg (140 lb) 06/19/2023 11:27 AM EDT Height 172.7 cm (5' 8 ) 06/19/2023 11:28 AM EDT Body Mass Index 21.29 06/19/2023 11:27 AM EDT Plan of Treatment Health Maintenance Due Date Last Done Comments Hepatitis B Vaccines (1 of 3 - 3-dose series) 1986 Hepatitis C Screening 1986 COVID-19 Vaccine (#1) 03/07/1987 Depression Screening 1998 Preventative Health Evaluation 2004 DTap / Tdap / Td (1 - Tdap) 2005 Influenza Vaccine (#1) 2023 Pneumococcal Vaccine Aged Out No long er eligible based on patient's age to complete this topic RSV Ped < 20 months Aged Out No longe r eligible based on patient's age to complete this topic Advance Directives For more information, please contact: [phone] Latest Code Status on File Code Status Date Activated Date Inactivated Comments Full Code 06/18/2023 8:57 AM 06/27/2023 7:49 PM This c ode status was ascertained in the following way: per unit protocol.
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
== END 2024-03-17 16:07 | disposition home or self-care (01) ==
LOC: HO.HOP 15:07
PROVIDERS: PCP Hospitalist; Visit Provider Clinical Nurse Specialist Psychiatric/Mental Health
DX: F31.81 Bipolar II disorder (principal); F42.2 Mixed obsessional thoughts and acts; F90.8 Attention-deficit hyperactivity disorder, other type; F43.10 Post-traumatic stress disorder, unspecified
CPT/HCPCS: 99214

== ENCOUNTER 2024-04-14 14:57 | Outpatient (AMB) | payer OTHER, SELFPAY ==
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
--- OUTSIDE RECORDS SUMMARY | 2024-04-14 18:54 | XMS_ITS | Clinical Summary ---
Author Organization [facility] Address [address] [place] [address] Care Team Providers Care Radiology Supervisor Name Role Phone Pcp, No Primary Care [...] age to complete this topic Care Teams Radiology Supervisor Relationship Specialty Start Date End Date Pcp, No PCP - General General Medicine 06/24/23
--- OUTSIDE RECORDS SUMMARY | 2024-04-14 18:55 | XMS_ITS ---
Author Organization [facility] Address [address] [address] Care Team Providers Care Paramedic Name Role Phone Eladio Beckett Unavailable [phone] Therapy, Provider Unavailable [phone] REASON FOR VISIT New Client Assigned Encounters Encounter Location Date Provider Diagnosis [facility] 1 [facility] [address] [place] [address] 02/07/2024 Provider Therapy Plan Of Treatment No Information Progress Notes * Miriam RODRIGUEZOB: 7 (38 yo M)Acc No.[id number]:02/07/2024 Patient:?Rudy RODRIGUEZ :1985???Age:38 Y???Sex:Male Phone: Address:[address] [place] [address], [phone] * true * Date:? Generated for Lilliana fry/Luis/eTransmitting on:?04/14/2024 06:54 PM EST
--- OUTSIDE RECORDS SUMMARY | 2024-04-14 18:55 | XMS_ITS ---
Author Organization [facility] Address [address] [address] Care Team Providers Care Mobile Device Developer Name Role Phone Eladio Beckett Unavailable [phone] Therapy, Provider Unavailable [phone] REASON FOR VISIT INTAKE Encounters Encounter Location Date Provider Diagnosis [facility] [address] [address] 02/07/2024 Provider Therapy Plan Of Treatment No Information Progress Notes * Miriam RODRIGUEZOB: 7 (38 yo M)Acc No.[id number]:02/07/2024 Patient:?Rudy RODRIGUEZ :1985???Age:38 Y???Sex:Male Phone: Address:[address] [place] [address], [phone] * true * Date:? Generated for Lilliana fry/Luis/eTransmitting on:?04/14/2024 06:55 PM EST
--- OUTSIDE RECORDS SUMMARY | 2024-04-14 18:55 | XMS_ITS ---
Author Organization [facility] Address [address] [address] Care Team Providers Care Cooperage Shop Supervisor Name Role Phone Eladio Beckett Unavailable [phone] Therapy, Provider Unavailable [phone] REASON FOR VISIT Appt. Cancellation Encounters Encounter Location Date Provider Diagnosis [facility] [address] [place] [address] 02/07/2024 Provider Therapy Plan Of Treatment No Information Progress Notes * Miriam RODRIGUEZOB: 7 (38 yo M)Acc No.[id number]:02/07/2024 Patient:?Rudy RODRIGUEZ :1985???Age:38 Y???Sex:Male Phone: Address:[address] [place] [address], [phone] * true * Date:? Generated for Lilliana fry/Luis/eTransmitting on:?04/14/2024 06:54 PM EST
--- OUTSIDE RECORDS SUMMARY | 2024-04-14 18:55 | XMS_ITS | Clinical Summary ---
Author Organization [facility] Address [address] [place] [address] Care Team Providers Care Geodetic Surveyor Name Role Phone Unavailable Primary Care Provider [...] Advance Directives For more information, please contact: [phone] Latest Code Status on File Code Status Date Activated Date Inactivated Comments Full Code 06/18/2023 8:57 AM 06/27/2023 7:49 PM This c ode status was ascertained in the following way: per unit protocol.
--- OUTSIDE RECORDS SUMMARY | 2024-04-14 18:55 | XMS_ITS | Clinical Summary ---
Author Organization [facility] Address [address] [place] [address] Phone Care Team Providers Care Food Service Sales Representatives Name Role Phone Physician, No Pcp Primary Care Provider Unavaila ble Allergies Active Allergy Reactions Criticality Noted Date Comments Cheese 01/30/2024 Medications guanFACINE (INTUNIV) 1 mg 24 Hour ER tablet Take 1 tablet (1 mg total) by mouth 1 (one) time each day. 12/20/2023 Active escitalopram (LEXAPRO) 5 mg tablet Take 1.5 tablets (7.5 mg total) by mouth 1 (one) time each day. 45 each 2 02/05/2024 5 Active lithium 300 mg capsule Take 1 capsule (300 mg total) by mouth 3 (three) times a day with meals. 90 each 2 02/04/2024 5 Active buPROPion XL (WELLBUTRIN XL) 150 mg 24 hr tablet Take 1 tablet (150 mg total) by mouth 1 (one) time each day. Do not crush, chew, or split. 30 each 11 02/05/2024 5 Active hydrOXYzine HCL (ATARAX) 50 mg tablet [...] - 02/04/2024 2:45 PM EST Hospital Encounter [facility] [address] [place] [address] Reese Herrera DO Discharge Disposition: Home or Self Care 01/29/2024 9:02 PM EST - 01/30/2024 2:56 PM EST Emergency [facility] Emergency [address] [place] [id number] Tomeka Mary MD Darko, Enoch O, MD Nicotine dependence with nicotine-induced disorder, unspecified nicotine product type (Primary Dx); Bipolar affective disorder, remission status unspecified ([facility]) Discharge Disposition: Admitted as an Inpatient from [...] Assigned at Male 01/29/2024 11:30 PM EST Legal Sex Male 8:07 AM EST Gender Identity Male 01/29/2024 11:30 PM EST Sexual Orientation Not on file Obstetrics History Last Filed [...] Td Vaccines (1 - Tdap) 2005 Hepatitis A Vaccines (1 of 2 - Risk 2-dose series) 2005 Hepatitis B Vaccines (1 of 3 - 19+ 3-dose series) 2005 Cholesterol Screening (Lipid Panel) 03/12/2023 Depression Screening 03/12/2023 HIV Screening 03/12/2023 Hepatitis C Screening 03/12/2023 Social Influencers of Health Screening 03/12/2023 COVID-19 Vaccine (2023-2 5 season) 2023 Influenza Vaccine (#1) 2023 [...] patient's age to complete this topic Meningococcal B Vacine Aged Out No lo nger eligible based on patient's age to complete [...] LITHIUM LEVEL Timed 02/01/2024 7:48 AM EST [id number], RSV, FLU A AND B QUALITATIVE RT-PCR, INTERNAL LAB Routine 01/30/2024 10:59 AM EST CBC WITH AUTO DIFFERENTIAL STAT 01/29/2024 9:36 PM EST ETHANOL STAT 01/29/2024 9:36 PM EST COMPREHENSIVE METABOLIC PANEL STAT 01/29/2024 9:36 PM EST CBC AND DIFFERENTIAL STAT 01/29/2024 9:36 PM EST DRUG ABUSE SCREEN EXPANDED, URINE STAT 01/29/2024 9:27 PM EST from Last 3 Months Results * (ABNORMAL) Landrum level (02/01/2024 7:48 AM EST) Landrum Level 0.3(L) 0.6 - 1.2 mEq/L LAB CHEMISTRY METHOD 02/01/2024 9:25 AM EST [facility] Blood Venous blood specimen / Unknown Venipuncture / Unknown 02/01/2024 7:48 AM EST 02/01/2024 7:51 AM EST [facility] LAB BLOOD ORDERABLES Final Res ult [facility] [address] [place] [address], * [id number], RSV, Influenza A and B qualitative RT-PCR (01/30/2024 10:59 AM EST) [facility] Influenza A PCR Negative Negative LAB MOLECULAR DIAGNOSTICS METHOD 01/30/2024 11:50 AM EST [facility] Influenza B PCR Negative Negative LAB MOLECULAR DIAGNOSTICS METHOD 01/30/2024 11:50 AM EST [facility] RSV PCR Negative Negative LAB MOLECULAR DIAGNOSTICS METHOD 01/30/2024 11:50 AM EST [facility] SARS COV-2 Negative Negative LAB MOLECULAR DIAGNOSTICS METHOD 01/30/2024 11:50 AM EST [facility] Swab Nasopharyngeal structure / Unknown Non-blood Collection / Unknown 01/30/2024 10:59 AM EST 01/30/2024 11:02 AM EST [facility] - 01/30/2024 11:50 AM EST This test has been authorized by FDA under an emergency used authorization (EUA). This EUA will cease to be effective when declared by [facility] that circumstances exist to justify its termination under section 564(bB)(2) of the Federal Food, Drug, and Cosmetic Act (The Act) 21 U.S.C. 360bbb 30,or when the EUA is revoked under section 564 (g) of the Act. Testing was performed using the [employer] Xpert Xpress SARS-CoV2/FLU/RSV test. Negative results do not preclude SARS COV-2 test infection and should not be used as a sole basis for treatment or other patient management decisions. Negative results must be combined with clinical observation, patient history, and epidemiological information. Daniele Hunter MD LAB MICROBIOLOGY - GENERAL [place] Final Result [facility] [address] [place] [address], [place] [phone] * (ABNORMAL) CBC auto differential (01/29/2024 9:36 PM EST) WBC 8.6 4.0 - 10.5 K/mcL LAB HEMETOLOGY METHOD 01/29/2024 9:47 PM EST [facility] RBC 4.50(L) 4.70 - 6.00 M/mcL LAB HEMETOLOGY METHOD 01/29/2024 9:47 PM EST [facility] Hemoglobin 13.4(L) 13.5 - 18.0 g/dL LAB HEMETOLOGY METHOD 01/29/2024 9:47 PM EST [facility] Hematocrit 39.2(L) 40.0 - 54.0 % LAB HEMETOLOGY METHOD 01/29/2024 9:47 PM EST [facility] MCV 87.1 78.0 - 100.0 FL LAB HEMETOLOGY METHOD 01/29/2024 9:47 PM [facility] MCH 29.8 25.0 - 33.0 pcg LAB HEMETOLOGY METHOD 01/29/2024 9:47 PM [facility] MCHC 34.2 32.0 - 36.0 g/dL LAB HEMETOLOGY METHOD 01/29/2024 9:47 PM [facility] RDW 12.0(L) 12.1 - 17.7 % LAB HEMETOLOGY METHOD 01/29/2024 9:47 PM [facility] Platelets 238 150 - 450 K/mcL LAB HEMETOLOGY METHOD 01/29/2024 9:47 PM [facility] MPV 9.4 7.4 - 11.4 FL LAB HEMETOLOGY METHOD 01/29/2024 9:47 PM [facility] Neutrophils Relative 69.9 44.0 - 74.0 % LAB HEMETOLOGY METHOD 01/29/2024 9:47 PM [facility] Lymphocytes Relative 22.7 20.0 - 48.0 % LAB HEMETOLOGY METHOD 01/29/2024 9:47 PM [facility] Monocytes Relative 4.3 2.0 - 12.0 % LAB HEMETOLOGY METHOD 01/29/2024 9:47 PM [facility] Eosinophils Relative 2.6 0.0 - 6.0 % LAB HEMETOLOGY METHOD 01/29/2024 9:47 PM [facility] Basophils Relative 0.3 0.0 - 2.0 % LAB HEMETOLOGY METHOD 01/29/2024 9:47 PM [facility] Neutrophils Absolute 6.01 1.80 - 7.80 K/mcL LAB HEMETOLOGY METHOD 01/29/2024 9:47 PM EST [facility] Lymphocytes Absolute 1.95 1.00 - 3.20 K/mcL LAB HEMETOLOGY METHOD 01/29/2024 9:47 PM EST [facility] Monocytes Absolute 0.37 0.00 - 0.80 K/mcL LAB HEMETOLOGY METHOD 01/29/2024 9:47 PM EST [facility] Eosinophils Absolute 0.22 0.00 - 0.50 K/mcL LAB HEMETOLOGY METHOD 01/29/2024 9:47 PM EST [facility] Basophils Absolute 0.03 0.00 - 0.20 K/mcL LAB HEMETOLOGY METHOD 01/29/2024 9:47 PM EST [facility] Blood Venous blood specimen / Unknown Venipuncture / Unknown 01/29/2024 9:36 PM EST 01/29/2024 9:45 PM EST Tomeak Mary MD LAB BLOOD ORDERABLES Final R esult Performing Organization Address [facility] de Phone Number [facility] [address] [place] [address], [place] [phone] * Ethanol (01/29/2024 9:36 PM EST) Ethanol Level <10 0 - 10 mg/dL LAB CHEMISTRY METHOD 01/29/2024 10:22 PM EST [facility] Blood Venous blood specimen / Unknown Venipuncture / Unknown 01/29/2024 9:36 PM EST 01/29/2024 9:45 PM EST Narrative [facility] - 01/29/2024 10:22 PM EST Medical Purpose Results of this test are to be used for medical purposes only Tomeka Mary MD LAB BLOOD ORDERABLES Final R esult [facility] [address] [place] [address], * Comprehensive metabolic panel (01/29/2024 9:36 PM EST) Sodium 135 135 - 145 mmol/L LAB CHEMISTRY METHOD 01/29/2024 10:22 PM [facility] Potassium 3.8 3.5 - 5.1 mmol/L LAB CHEMISTRY METHOD 01/29/2024 10:22 PM [facility] Chloride 99 98 - 107 mmol/L LAB CHEMISTRY METHOD 01/29/2024 10:22 PM [facility] CO2 30 24 - 32 mmol/L LAB CHEMISTRY METHOD 01/29/2024 10:22 PM [facility] Anion Gap 6 5 - 14 LAB CHEMISTRY METHOD 01/29/2024 10:22 PM [facility] Glucose 100 70 - 199 mg/dL LAB CHEMISTRY METHOD 01/29/2024 10:22 PM [facility] BUN 19 9 - 20 mg/dL LAB CHEMISTRY METHOD 01/29/2024 10:22 PM [facility] Creatinine 1.02 0.70 - 1.30 mg/dL LAB CHEMISTRY METHOD 01/29/2024 10:22 PM [facility] eGFR 97 >=60 mL/min/1. 73m2 LAB CHEMISTRY METHOD 01/29/2024 10:22 PM [facility] Comment:Calculation based on the??Chronic Kidney Disease Epidemiology Collaboration (CKD-EPI) equation refit??without adjustment for race. BUN/Creatinine Ratio 18.6 12.0 - 20.0 LAB CHEMISTRY METHOD 01/29/2024 10:22 PM [facility] Calcium 9.2 8.4 - 10.2 mg/dL LAB CHEMISTRY METHOD 01/29/2024 10:22 PM [facility] AST (SGOT) 19 5 - 40 unit/L LAB CHEMISTRY METHOD 01/29/2024 10:22 PM [facility] ALT (SGPT) 9 7 - 52 unit/L LAB CHEMISTRY METHOD 01/29/2024 10:22 PM [facility] Alkaline Phosphatase 58 34 - 104 unit/L LAB CHEMISTRY METHOD 01/29/2024 10:22 PM [facility] Total Protein 7.3 6.4 - 8.5 g/dL LAB CHEMISTRY METHOD 01/29/2024 10:22 PM [facility] Albumin 4.7 3.5 - 5.0 g/dL LAB CHEMISTRY METHOD 01/29/2024 10:22 PM [facility] Total Bilirubin 0.6 0.3 - 1.0 mg/dL LAB CHEMISTRY METHOD 01/29/2024 10:22 PM [facility] Blood Venous blood specimen / Unknown Venipuncture / Unknown 01/29/2024 9:36 PM EST 01/29/2024 9:45 PM EST us [facility] Saritha Mary MD LAB BLOOD ORDERABLES Final R esult [facility] [address] [place] [address], [place] [phone] * (ABNORMAL) Drug abuse screen expanded, urine (01/29/2024 9:27 PM EST) Amphetamine Negative Negative LAB CHEMISTRY METHOD 01/29/2024 9:43 PM [facility] Barbiturates Negative Negative LAB CHEMISTRY METHOD 01/29/2024 9:43 PM [facility] Benzodiazepine Positive(A) Negative LAB CHEMISTRY METHOD 01/29/2024 9:43 PM [facility] Cannabinoid (THC) Positive(A) Negative LAB CHEMISTRY METHOD 01/29/2024 9:43 PM EST [facility] Cocaine Positive(A) Negative LAB CHEMISTRY METHOD 01/29/2024 9:43 PM [facility] Opiates Negative Negative LAB CHEMISTRY METHOD 01/29/2024 9:43 PM [facility] Phencyclidine (PCP) Negative Negative LAB CHEMISTRY METHOD 01/29/2024 9:43 PM EST [facility] Oxycodone Negative Negative LAB CHEMISTRY METHOD 01/29/2024 9:43 PM [facility] Fentanyl Negative Negative LAB CHEMISTRY METHOD 01/29/2024 9:43 PM [facility] Urine Urine specimen obtained by clean catch procedure / Unknown Non-blood Collection / Unknown 01/29/2024 9:27 PM EST 01/29/2024 9:30 PM EST [facility] - 01/29/2024 9:43 PM EST URINE DRUGS OF ABUSE CUTOFF CONCENTRATIONS: Amphetamines ?1000 ng/mL Barbiturates ?200 ng/mL Benzodiazepine ?? 200 ng/mL Cannabinoids ?50 ng/mL Benzoylecgonine ??300 ng/mL Opiates ?300 ng/mL Phencyclidine ? 25 ng/mL Oxycodone ?100 ng/mL Fentanyl ? 1 ng/mL Positive results are presumptive (unconfirmed) and are to be used for medical purposes only. Tomeka Mary MD LAB URINE ORDERABLES Final R esult [facility] [address] [place] [address], from Last 3 Months Insurance Advance Directives * Full Code - Default [...] currently active code status orders. Care Teams Food Service Sales Representatives Relationship Specialty Start Date End Date Physician, No Pcp PCP - General 01/29/24
--- OUTSIDE RECORDS SUMMARY | 2024-04-14 18:55 | XMS_ITS | Patient Health Record ---
Author Organization [facility] Address [address] [address] Care Team Providers Care Pta Name Role Phone Eladio Beckett Unavailable [phone] Therapy, Provider Unavailable [phone] Reason For Referral No Information Encounters Encounter Location Date Provider Diagnosis [facility] [address] [address] 02/07/2024 Provider Therapy [facility] [address] [address] 02/07/2024 Provider Therapy [facility] [address] [address] 02/07/2024 Provider Therapy Plan Of Treatment No Information Insurance Providers Payer Name Payer Address Payer Phone Subscriber Number Group Number Insured Name Patient Relationship to Insured Coverage Start Date Coverage End Date [place] [address] [place] [address] [id number] Rudy Rodriguez Self - patient is the insured
--- OUTSIDE RECORDS SUMMARY | 2024-04-14 18:55 | XMS_ITS | Patient Health Record ---
Author Organization [facility] Address [address] [facility] [address] [place] [address] Care Team Providers Care Hot Top Liner Name Role Phone YAIMAShaggy ORTGEA Primary Care Provider Allergies No Known Allergies [...] W/U Status Risk Notes Problem Tobacco user (336223603) Nicotine dependence, unspecified, uncomplicated (F17.200) Active confirmed Problem Generalized anxiety disorder (99224828) Generalized anxiety disorder (F41.1) Active confirmed Problem Seasonal allergic rhinitis (842868134) Other seasonal allergic rhinitis (J30.2) Active confirmed Problem Dental caries (69459399) Dental caries, unspecified (K02.9) Active confirmed Problem Adult health examination (236837176) Encounter for general adult medical examination without abnormal findings (Z00.00) Active confirmed Plan Of Treatment Future Test Test Name Order Date Lipid Panel 05/13/2018 CBC 05/13/2018 COMPREHENSIVE METABOLIC PANEL 05/13/2018 Insurance Providers Payer Name Payer Address Payer Phone Subscriber Number Group Number Insured Name Patient Relationship to Insured Coverage Start Date Coverage End Date [employer] [facility] [address] [address] [place] [address] [id number] Rudy Rodriguez Self - patient is the insured Medical (General) History Medical History History ICD Code Anxiety disorder PTSD Surgical History Surgery Date(Month/Year) bacterial infection in right ankle WHEN 4 YO
== END 2024-04-14 15:37 | disposition home or self-care (01) ==
LOC: HO.HOP 14:57
PROVIDERS: PCP Hospitalist; Visit Provider Clinical Nurse Specialist Psychiatric/Mental Health
DX: F31.81 Bipolar II disorder (principal); F42.2 Mixed obsessional thoughts and acts; F90.8 Attention-deficit hyperactivity disorder, other type; F14.10 Cocaine abuse, uncomplicated; F12.10 Cannabis abuse, uncomplicated; F43.10 Post-traumatic stress disorder, unspecified
CPT/HCPCS: 99214

== ENCOUNTER → 2024-04-14 14:57 | Outpatient (BNVA) | payer OTHER, SELFPAY | PROVIDERS: PCP Hospitalist; Visit Provider Clinical Nurse Specialist Psychiatric/Mental Health ==

== ENCOUNTER 2024-05-14 15:06 | Outpatient (AMB) | payer OTHER, SELFPAY ==
--- NOTE | 2024-05-14 15:14 | A.OFFPSYCH_ITS ---
Intake Intake Visit Reasons: f/u consultation Mechanical Engineering Director Required: No Allergies tuna oil Allergy (Verified 07/02/23 13:25) Vomiting Medication List - Last Reconciled 05/14/24 by Briseida Polo APRN bupropion HCl XL (Wellbutrin XL) 150 mg PO QAM escitalopram oxalate (Lexapro) 7.5 mg (1.5 x 5 mg) PO DAILY levothyroxine 12.5 mcg (1/2 x 25 mcg) PO DAILY lithium carbonate 300 mg PO TID propranolol 10 mg (1/2 x 20 mg) PO BID trazodone 50 mg PO BEDTIME PRN HPI- Psychiatric Chief Complaint: f/u consultation HPI Narrative: pt here for follow up re; mood disorder, adhd, ptsd pt reports stable overall med compliant- no side effects no relapse on cocaine or etoh no SI or HI Past Psychiatric History: IPLOC x2 spent ~ 2weeks at [facility] the first time and 6 days 2nd time Previous trials of Zoloft in [facility], no previous medication trials Subjective Subjective Subjective Medication Compliance: Yes Side effects from medications: No Review of Systems Medical Review of Systems: unchanged Mental Status Exam Mental Status Exam Patient Appearance: Well Grooomed Patient Orientation: Person, Place, Time and Situation Level of Consciousness: Awake and Appropriate Patient Behavior: Appropriate and Cooperative Mood Description: Calm and Appropriate Affect Description: Calm, Appropriate and Constricted Patient Cognition Impaired: No Ability to Follow Directions: Good Speech Pattern: Clear Memory Description: Intact Hallucinations: None Delusions: Not Present Thought Process: Intact and Goal Oriented Thought Content: positive for Intact and positive for Goal Oriented Judgement: Good Assessment and Plan Assessment & Plan (1) PTSD (post-traumatic stress disorder): Status: Acute Code(s): F43.10 - Post-traumatic stress disorder, unspecified (2) ADHD, adult residual type: Status: Acute Code(s): F90.8 - Attention-deficit hyperactivity disorder, other type (3) OCD (obsessive compulsive disorder): Status: Acute Qualifiers: Obsessive-compulsive disorder type: mixed obsessional thoughts and acts Qualified Code(s): F42.2 - Mixed obsessional thoughts and acts Code(s): F42.9 - Obsessive-compulsive disorder, unspecified (4) Bipolar II disorder: Status: Acute Code(s): F31.81 - Bipolar II disorder Plan continue meds per below obtain blood work retrun for follow up in 4 weeks Medications: Refilled propranolol 10 mg (1/2 x 20 mg) PO BID 60 tabs 1RF trazodone 50 mg PO BEDTIME PRN 30 tabs 0RF Insomnia bupropion HCl XL (Wellbutrin XL) 150 mg PO QAM 30 tabs 0RF escitalopram oxalate (Lexapro) 7.5 mg (1.5 x 5 mg) PO DAILY 45 tabs 0RF levothyroxine 12.5 mcg (1/2 x 25 mcg) PO DAILY 15 tabs 2RF lithium carbonate 300 mg PO TID 90 caps 0RF Orders: Orders TSH reflex Free T4 Today E03.9 - Hypothyroidism, unspecified, F31.81 - Bipolar II disorder [place] Today F31.81 - Bipolar II disorder, F42.2 - Mixed obsessional thoughts and acts, F43.10 - Post-traumatic stress disorder, unspecified, F90.8 - Attention-deficit hyperactivity disorder, other type Counseling and coordination of Care Pt. Self Management counseling: Maintenance-social rhythm, Mod caffeine/ETOH intake and Sleep hygiene Medication management counseling: Effectiveness, Side effects, Dosing range, Duration, Drug interaction and Adherence Diagnosis and Prognosis Counseling: Accuracy of diagnosis, Prognosis over time, Impact of diagnosis on life functions, Impact of family relationship, Problematic behaviors secondary to diagnosis and Adequacy of current interventions Details: I spent [] minutes reviewing the record, seeing the patient and documenting in the medical record. Counseling provided to the patient/caregiver as outlined below. Addressed patient/caregiver concerns regarding current medication regime including effective adherence. Addressed patient/caregiver concerns regarding diagnosis and prognosis including accuracy of diagnosis, prognosis over time, impact of diagnosis. Addressed patient/caregiver concerns regarding impact of recent stressors. 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 Patient who was 22 yo found her and had to cut her down with help of his other brother Patient dropped out of college after sister and started into crime Legal hx: Incarcerat Substance History: Cocaine addiction, marijuana use Trauma History: Traumatic losses of 2 siblings (one to MVA, the other to suicide) Coding Level of Care Code Est Pt Level 4 (29866) Diagnoses PTSD (post-traumatic stress disorder) F43.10 ADHD, adult residual type F90.8 Mixed obsessional thoughts and acts F42.2 Obsessive-compulsive disorder type: mixed obsessional thoughts and acts Bipolar II disorder F31.81
--- OUTSIDE RECORDS SUMMARY | 2024-05-14 16:35 | XMS_ITS ---
Author Organization [facility] Address [address] [address] Care Team Providers Care Executive Assistant To General Counsel Name Role Phone Eladio Beckett Unavailable [phone] Therapy, Provider Unavailable [phone] REASON FOR VISIT Appt. Cancellation Encounters Encounter Location Date Provider Diagnosis [facility] 1 [facility] [address] [place] [address] 02/07/2024 Provider Therapy Plan Of Treatment No Information Progress Notes * Morro RODRIGUEZnDOB: 7 (38 yo M)Acc No.[id number]:02/07/2024 Patient:?Rudy RODRIGUEZ :1985???Age:38 Y???Sex:Male Phone: Address:[address] [place] [address], [phone] * true * Date:? Generated for Lilliana fry/Luis/eTransmitting on:?05/14/2024 04:35 PM EDT
--- OUTSIDE RECORDS SUMMARY | 2024-05-14 16:35 | XMS_ITS | Clinical Summary ---
Author Organization [facility] Address [address] [place] [address] Phone Care Team Providers Care Gear Lapper Name Role Phone Physician, No Pcp Primary [...] time each day. 45 each 2 02/05/2024 Active lithium 300 mg capsule Take 1 capsule (300 mg total) by mouth 3 (three) times a day with meals. 90 each 2 02/04/2024 Active buPROPion XL (WELLBUTRIN XL) 150 mg 24 hr tablet Take 1 tablet (150 mg total) by mouth 1 (one) time each day. Do not crush, chew, or split. 30 each 11 02/05/2024 Active hydrOXYzine HCL (ATARAX) 50 mg tablet [...] disord er), recurrent severe, without psychosis 01/30/2024 Surgical History Surgery Date Site/Laterality Comments ANKLE [...] on patient's age to complete this topic Insurance Advance Directives * Full Code - [...] currently active code status orders. Care Teams Gear Lapper Relationship Specialty Start Date End Date Physician, No Pcp PCP - General 01/29/24
--- OUTSIDE RECORDS SUMMARY | 2024-05-14 16:35 | XMS_ITS | Clinical Summary ---
Author Organization [facility] Address [address] [place] [address] Care Team Providers Care Instrumentation Chemist Name Role Phone Pcp, No Primary Care [...] age to complete this topic Care Teams Instrumentation Chemist Relationship Specialty Start Date End Date Pcp, No PCP - General General Medicine 06/24/23
--- OUTSIDE RECORDS SUMMARY | 2024-05-14 16:35 | XMS_ITS ---
Author Organization [facility] Address [address] [address] Care Team Providers Care Resource Manager Name Role Phone Eladio Beckett Unavailable [phone] Therapy, Provider Unavailable [phone] REASON FOR VISIT New Client Assigned Encounters Encounter Location Date Provider Diagnosis [facility] 1 [facility] [address] [place] [address] 02/07/2024 Provider Therapy Plan Of Treatment No Information Progress Notes * Miriam RODRIGUEZOB: 7 (38 yo M)Acc No.[id number]:02/07/2024 Patient:?Rudy RODRIGUEZ :1985???Age:38 Y???Sex:Male Phone: Address:[address] [place] [address], [phone] * true * Date:? Generated for Lilliana fry/Luis/eTransmitting on:?05/14/2024 04:35 PM EDT
--- OUTSIDE RECORDS SUMMARY | 2024-05-14 16:36 | XMS_ITS | Patient Health Record ---
Author Organization [facility] Address [address] [address] Care Team Providers Care Correspondence School Instructor Name Role Phone Eladio Beckett Unavailable [phone] Therapy, Provider Unavailable [phone] Reason For Referral No Information Encounters Encounter Location Date Provider Diagnosis [facility] [address] [address] 02/07/2024 Provider Therapy [facility] [address] [address] 02/07/2024 Provider Therapy [facility] [address] [address] 02/07/2024 Provider Therapy Plan Of Treatment No Information Insurance Providers Payer Name Payer Address Payer Phone Subscriber Number Group Number Insured Name Patient Relationship to Insured Coverage Start Date Coverage End Date [employer] [place] Bailee BRYANT [address] [place] [address] [id number] Rudy Rodriguez Self - patient is the insured
--- OUTSIDE RECORDS SUMMARY | 2024-05-14 16:36 | XMS_ITS | Patient Health Record ---
Author Organization [facility] Address [address] [facility] [address] [place] [address] Care Team Providers Care Pipe Inspector Name Role Phone YAIMAShaggy ORTEGA Primary Care Provider [phone] Allergies No Known Allergies Reason For Referral [...] W/U Status Risk Notes Problem Tobacco user (675413471) Nicotine dependence, unspecified, uncomplicated (F17.200) Active confirmed Problem Generalized anxiety disorder (28242984) Generalized anxiety disorder (F41.1) Active confirmed Problem Seasonal allergic rhinitis (483745202) Other seasonal allergic rhinitis (J30.2) Active confirmed Problem Dental caries (89229462) Dental caries, unspecified (K02.9) Active confirmed Problem Adult health examination (510262304) Encounter for general adult medical examination without abnormal findings (Z00.00) Active confirmed Plan Of Treatment Future Test Test Name Order Date Lipid Panel 05/13/2018 CBC 05/13/2018 COMPREHENSIVE METABOLIC PANEL 05/13/2018 Insurance Providers Payer Name Payer Address Payer Phone Subscriber Number Group Number Insured Name Patient Relationship to Insured Coverage Start Date Coverage End Date [employer] [facility] [address] [address] [place] [address] [id number] Rudy Rodriguez Self - patient is the insured Medical (General) History Medical History History ICD Code Anxiety disorder PTSD Surgical History Surgery Date(Month/Year) bacterial infection in right ankle WHEN 4 YO
--- OUTSIDE RECORDS SUMMARY | 2024-05-14 16:36 | XMS_ITS | Clinical Summary ---
Author Organization [facility] Address [address] [place] [address] Care Team Providers Care Leasing Representative Name Role Phone Unavailable Primary Care Provider [...] Advance Directives For more information, please contact: [phone] Latest Code Status on File Code Status Date Activated Date Inactivated Comments Full Code 06/18/2023 8:57 AM 06/27/2023 7:49 PM This c ode status was ascertained in the following way: per unit protocol.
--- OUTSIDE RECORDS SUMMARY | 2024-05-14 16:36 | XMS_ITS ---
Author Organization [facility] Address [address] [address] Care Team Providers Care Knitting Machine Operator Helper Name Role Phone Eladio Beckett Unavailable [phone] Therapy, Provider Unavailable [phone] REASON FOR VISIT INTAKE Encounters Encounter Location Date Provider Diagnosis [facility] [address] [address] 02/07/2024 Provider Therapy Plan Of Treatment No Information Progress Notes * Morro RODRIGUEZnDOB: 7 (38 yo M)Acc No.[id number]:02/07/2024 Patient:?Rudy RODRIGUEZ :1985???Age:38 Y???Sex:Male Phone: Address:[address] [place] [address], [phone] * true * Date:? Generated for Lilliana fry/Luis/eTransmitting on:?05/14/2024 04:36 PM EDT
== END 2024-05-14 15:41 | disposition home or self-care (01) ==
LOC: HO.HOP 15:06
PROVIDERS: PCP Hospitalist; Visit Provider Clinical Nurse Specialist Psychiatric/Mental Health
DX: F43.10 Post-traumatic stress disorder, unspecified (principal); F90.8 Attention-deficit hyperactivity disorder, other type; F42.2 Mixed obsessional thoughts and acts; F31.81 Bipolar II disorder
CPT/HCPCS: 99214

== ENCOUNTER → 2024-05-14 15:06 | Outpatient (BNVA) | payer OTHER, SELFPAY | PROVIDERS: PCP Hospitalist; Visit Provider Clinical Nurse Specialist Psychiatric/Mental Health ==

== ENCOUNTER 2024-06-23 15:43 | Outpatient (REF) | payer OTHER, SELFPAY ==
[2024-06-23 15:54] LABS: MANUAL DIFF FLAG NO
[2024-06-23 16:25] LABS: Basophils Absolute Auto 0.1 X10*3/uL (0.0-0.2); Basophils Percent Auto 0.5 % (0-2); Eosinophils Absolute Auto 0.3 X10*3/uL (0.0-0.4); Eosinophils Percent Auto 2.7 % (0-4); Hematocrit 42.1 % (42.0-52.0); Hemoglobin 14.5 g/dl (14.0-18.0); Imm Gran Abs Auto 0.03 X10*3/uL (0.00-0.03); Imm Gran Pct Auto 0.3 % (0.0-0.4); Lymphocytes Absolute Auto 2.6 X10*3/uL (1.2-4.9); Lymphocytes Percent Auto 24.7 % (20-40); Mean Corpuscular HGB Conc 34.4 g/dl (31.0-36.0); Mean Corpuscular Hemoglobin 29.5 pg (27.0-33.0); Mean Corpuscular Volume 85.6 fL (80.0-98.0); Mean Platelet Volume 9.1 fL (9.4-12.4); Monocytes Absolute Auto 0.6 X10*3/uL (0.1-1.2); Monocytes Percent Auto 5.4 % (2-11); Neutrophils Percent Auto 66.4 % (45-73); Platelet Count 281 X10*3/uL (160-400); Red Blood Count 4.92 X10*6/uL (4.60-5.80); Red Cell Distribution Width 12.8 % (11.0-16.0); White Blood Count 10.6 X10*3/uL (4.8-10.8)
--- OUTSIDE RECORDS SUMMARY | 2024-06-23 16:25 | XMS_ITS | Clinical Summary ---
Author Organization [facility] Address [address] [place] [address] Care Team Providers Care Retail Cosmetics Sales Counter Manager Name Role Phone Pcp, No Primary Care Provider Unavailabl e Social History Tobacco Use Types Packs/Day Years Used Date Smoking Tobacco: Never Assessed Sex and Gender Information Value Date Recorded Sex Assigned at Not on file Legal Sex Male 3:45 PM EDT Gender Identity Not on file Sexual Orientation Not on file Plan of Treatment Health Maintenance Due Date Last Done Comments Hepatitis C Virus Screening 1985 HIV Screening 09/05/1999 DTaP/Tdap/Td Vaccines (1 - Tdap) 2005 Hepatitis B Vaccines (1 of 3 - 19+ 3-dose series) 2005 COVID-19 Vaccine ( - 2023-2 5 season) 2023 Influenza Vaccine 09/11/2024 HPV Vaccines Aged Out No longer eligi ble based on patient's age to complete this topic Pneumococcal Vaccine: Pediat truong (0-5 Years) and At-Risk Patients (6 to 49 Years) Aged Out No longer eligible b ased on patient's age to complete this topic Insurance Care Teams Retail Cosmetics Sales Counter Manager Relationship Specialty Start Date End Date Pcp, No PCP - General General Medicine 06/24/23
--- OUTSIDE RECORDS SUMMARY | 2024-06-23 16:25 | XMS_ITS | Clinical Summary ---
Author Organization [facility] Address [address] [place] [address] Phone Care Team Providers Care Stunner And Shackler Name Role Phone Physician, No Pcp Primary [...] Noted Date Diagnosed Date Borderline personality disorder (CMS/HCC V24, CM S/[facility] V28) 01/31/2024 Cannabis use disorder, sever e, dependence ([facility] V24, [facility] V28) 01/31/2024 PTSD (post-traumatic stress disorder) 01/31/2024 MDD (major depressive disord er), recurrent severe, without psychosis ([facility] V24, [facility] V28) 01/30/2024 Surgical History Surgery Date Site/Laterality Comments [...] Influencers of Health Screening 03/12/2023 COVID-19 Vaccine (1 - 2023-2 5 season) 2023 Influenza Vaccine (Season Ended) 2024 HIB Vaccines Aged Out No longer eligi [...] age to complete this topic Meningococcal B Vaccine Aged Out No l onger eligible based on patient's age to complete [...] currently active code status orders. Care Teams Stunner And Shackler Relationship Specialty Start Date End Date Physician, No Pcp PCP - General 01/29/24
--- OUTSIDE RECORDS SUMMARY | 2024-06-23 16:26 | XMS_ITS ---
Author Organization [facility] Address [address] [address] Care Team Providers Care Senior Resident Care Director Name Role Phone Eladio Beckett Unavailable [phone] Therapy, Provider Unavailable [phone] REASON FOR VISIT INTAKE Encounters Encounter Location Date Provider Diagnosis [facility] [address] [address] 02/07/2024 Provider Therapy Plan Of Treatment No Information Progress Notes * Morro RODRIGUEZnDOB: 7 (38 yo M)Acc No.[id number]:02/07/2024 Patient:?Rudy RODRIGUEZ :1985???Age:38 Y???Sex:Male Phone: Address:[address] [place] [address], [phone] * true * Date:? Generated for Lilliana fry/Luis/eTransmitting on:?06/23/2024 04:26 PM EDT
--- OUTSIDE RECORDS SUMMARY | 2024-06-23 16:26 | XMS_ITS ---
Author Organization [facility] Address [address] [address] Care Team Providers Care Art Coordinator Name Role Phone Eladio Beckett Unavailable [phone] Therapy, Provider Unavailable [phone] REASON FOR VISIT New Client Assigned Encounters Encounter Location Date Provider Diagnosis [facility] 1 [facility] [address] [place] [address] 02/07/2024 Provider Therapy Plan Of Treatment No Information Progress Notes * Miriam RODRIGUEZOB: 7 (38 yo M)Acc No.[id number]:02/07/2024 Patient:?Rudy RODRIGUEZ :1985???Age:38 Y???Sex:Male Phone: Address:[address] [place] [address], [phone] * true * Date:? Generated for Lilliana fry/Luis/eTransmitting on:?06/23/2024 04:25 PM EDT
--- OUTSIDE RECORDS SUMMARY | 2024-06-23 16:26 | XMS_ITS | Patient Health Record ---
Author Organization [facility] Address [address] [facility] [address] [place] [address] Care Team Providers Care Head Doffer Name Role Phone YAIMAShaggy ORTEGA Primary Care Provider Allergies No Known Allergies [...] W/U Status Risk Notes Problem Tobacco user (044101941) Nicotine dependence, unspecified, uncomplicated (F17.200) Active confirmed Problem Generalized anxiety disorder (31105775) Generalized anxiety disorder (F41.1) Active confirmed Problem Other seasonal allergic rhinitis (J30.2) Active confirmed Problem Dental caries (75221215) Dental caries, unspecified (K02.9) Active confirmed Problem Adult health examination (275620890) Encounter for general adult medical examination without abnormal findings (Z00.00) Active confirmed Plan Of Treatment Future Test Test Name Order Date Lipid Panel 05/13/2018 CBC 05/13/2018 COMPREHENSIVE METABOLIC PANEL 05/13/2018 Insurance Providers Payer Name Payer Address Payer Phone Subscriber Number Group Number Insured Name Patient Relationship to Insured Coverage Start Date Coverage End Date [employer] [facility] [address] [address] [place] [address] [id number] Rudy Rodriguez Self - patient is the insured Medical (General) History Medical History History ICD Code Anxiety disorder PTSD Surgical History Surgery Date(Month/Year) bacterial infection in right ankle WHEN 4 YO
--- OUTSIDE RECORDS SUMMARY | 2024-06-23 16:26 | XMS_ITS | Clinical Summary ---
Author Organization [facility] Address [address] [place] [address] Care Team Providers Care Gastroenterology Manager Name Role Phone Unavailable Primary Care Provider [...] Advance Directives For more information, please contact: [phone] Latest Code Status on File Code Status Date Activated Date Inactivated Comments Full Code 06/18/2023 8:57 AM 06/27/2023 7:49 PM This c ode status was ascertained in the following way: per unit protocol.
--- OUTSIDE RECORDS SUMMARY | 2024-06-23 16:26 | XMS_ITS | Patient Health Record ---
Author Organization [facility] Address [address] [address] Care Team Providers Care Cracking Unit Operator Name Role Phone Eladio Beckett Unavailable [phone] Therapy, Provider Unavailable [phone] Reason For Referral No Information Encounters Encounter Location Date Provider Diagnosis [facility] [address] [address] 02/07/2024 Provider Therapy [facility] [address] [address] 02/07/2024 Provider Therapy [facility] [address] [address] 02/07/2024 Provider Therapy Plan Of Treatment No Information Insurance Providers Payer Name Payer Address Payer Phone Subscriber Number Group Number Insured Name Patient Relationship to Insured Coverage Start Date Coverage End Date [employer] [place] Bailee BRYANT [address] [place] [address] [id number] Rudy Rodriguez Self - patient is the insured
--- OUTSIDE RECORDS SUMMARY | 2024-06-23 16:26 | XMS_ITS ---
Author Organization [facility] Address [address] [address] Care Team Providers Care Dairy Technologist Name Role Phone Eladio Beckett Unavailable [phone] Therapy, Provider Unavailable [phone] REASON FOR VISIT Appt. Cancellation Encounters Encounter Location Date Provider Diagnosis [facility] 1 [facility] [address] [place] [address] 02/07/2024 Provider Therapy Plan Of Treatment No Information Progress Notes * Miriam RODRIGUEZOB: 7 (38 yo M)Acc No.[id number]:02/07/2024 Patient:?Rudy RODRIGUEZ :1985???Age:38 Y???Sex:Male Phone: Address:[address] [place] [address], [phone] * true * Date:? Generated for Lilliana fry/Luis/eTransmitting on:?06/23/2024 04:25 PM EDT
[2024-06-23 17:11] LABS: Lithium 0.57 mmol/L (0.60-1.20)
[2024-06-23 17:32] LABS: Folate 9.8 ng/mL (> or = 4.0); Vitamin B12 404 pg/mL (200-900)
[2024-06-23 18:01] LABS: Alanine Aminotransferase 26 U/L (0-40); Albumin Level 4.6 g/dL (3.5-5.0); Alkaline Phosphatase 58 U/L (39-117); Anion Gap 12 (12-20); Aspartate Amino Transferase 21 U/L (5-37); Bilirubin Total 0.3 mg/dL (0.0-1.0); Blood Urea Nitrogen 6 mg/dL (9-16); Calcium 9.7 mg/dL (8.4-10.2); Carbon Dioxide 29 mmol/L (22-29); Chloride 102 mmol/L (96-108); Estimated Glomerular Filt Rate > 60; Glucose Random 99 mg/dL (60-115); Potassium 4.3 mmol/L (3.3-5.1); Sodium 139 mmol/L (135-145); Total Protein 7.2 g/dL (6.5-8.0)
[2024-06-23 18:15] LABS: TSH reflex Free T4 3.84 uIU/mL (0.32-4.0); Vitamin D 25-OH Total 18.2 ng/mL (>30)
== END 2024-06-23 15:44 | disposition home or self-care (01) ==
LOC: HO.LAB 15:43
PROVIDERS: Visit Provider Clinical Nurse Specialist Psychiatric/Mental Health
DX: E03.9 Hypothyroidism, unspecified (principal); R53.83 Other fatigue; E55.9 Vitamin D deficiency, unspecified; F31.81 Bipolar II disorder; Z79.899 Other long term (current) drug therapy
CPT/HCPCS: 36415; 80053; 80178; 82306; 82607; 82746; 84443; 85025

== ENCOUNTER 2024-06-23 15:53 | Outpatient (AMB) | payer OTHER, SELFPAY ==
--- NOTE | 2024-06-23 15:13 | A.OFFPSYCH_ITS ---
Intake Intake Visit Reasons: depression Emt P Required: No Allergies tuna oil Allergy (Verified 07/02/23 13:25) Vomiting Medication List - Last Reconciled 06/23/24 by Briseida Polo APRN bupropion HCl XL (Wellbutrin XL) 150 mg PO QAM escitalopram oxalate (Lexapro) 7.5 mg (1.5 x 5 mg) PO DAILY levothyroxine 12.5 mcg (1/2 x 25 mcg) PO DAILY lithium carbonate 300 mg PO TID propranolol 10 mg (1/2 x 20 mg) PO BID trazodone 50 mg PO BEDTIME PRN HPI- Psychiatric Chief Complaint: depression HPI Narrative: pt reports stable mood and anxiety; he has had high stress related primarily to dental work and complications; he is avoiding social gatherings and feels tired frequently; he has low energy. he has a new PCP he will see soon. He is adherent with meds; denies SI or HI; no illict drug use. he is working with his therapist regularly Past Psychiatric History: IPLOC x2 spent ~ 2weeks at [facility] the first time and 6 days 2nd time Previous trials of Zoloft in [facility], no previous medication trials Subjective Subjective Subjective Medication Compliance: Yes Side effects from medications: No Review of Systems Medical Review of Systems: unchanged Mental Status Exam Mental Status Exam Patient Appearance: Well Grooomed Patient Orientation: Person, Place, Time and Situation Level of Consciousness: Awake Patient Behavior: Appropriate Mood Description: Calm and Withdrawn Affect Description: Calm and Withdrawn Patient Cognition Impaired: No Ability to Follow Directions: Good Speech Pattern: Clear Memory Description: Intact Hallucinations: None Delusions: Not Present Thought Process: Intact Thought Content: positive for Intact Judgement: Good Assessment and Plan Assessment & Plan (1) Fatigue: Status: Acute Qualifiers: Fatigue type: unspecified Qualified Code(s): R53.83 - Other fatigue Code(s): R53.83 - Other fatigue (2) Bipolar II disorder: Status: Acute Code(s): F31.81 - Bipolar II disorder (3) Long-term use of high-risk medication: Status: Acute Code(s): Z79.899 - Other superintendent marine oil terminal (current) drug therapy (4) Other bipolar disorder: Status: Acute Code(s): F31.89 - Other bipolar disorder (5) PTSD (post-traumatic stress disorder): Status: Acute Code(s): F43.10 - Post-traumatic stress disorder, unspecified Medications: New escitalopram oxalate (Lexapro) 10 mg PO DAILY 30 tabs 1RF Refilled bupropion HCl XL (Wellbutrin XL) 150 mg PO QAM 30 tabs 0RF propranolol 10 mg (1/2 x 20 mg) PO BID 60 tabs 1RF lithium carbonate 300 mg PO TID 90 caps 0RF trazodone 50 mg PO BEDTIME PRN 30 tabs 0RF Insomnia Discontinued escitalopram oxalate (Lexapro) Discontinued Reason: Doctor's Order 7.5 mg (1.5 x 5 mg) PO DAILY 45 tabs 0RF Orders: Orders [place] Today F31.81 - Bipolar II disorder TSH reflex Free T4 Today E03.9 - Hypothyroidism, unspecified Complete Blood Count Auto Diff Today R53.83 - Other fatigue Comprehensive Met. Panel Today R53.83 - Other fatigue Vitamin D 25-OH Total Today E55.9 - Vitamin D deficiency, unspecified, R53.83 - Other fatigue Vitamin B12 and Folate Today R53.83 - Other fatigue Counseling and coordination of Care Pt. Self Management counseling: Maintenance-social rhythm, Mod caffeine/ETOH intake, Nutrition education and improvement, Sleep hygiene and Behavior activation Medication management counseling: Effectiveness, Side effects, Dosing range, Duration, Drug interaction and Adherence Diagnosis and Prognosis Counseling: Accuracy of diagnosis, Prognosis over time, Impact of diagnosis on life functions, Impact of family relationship, Problematic behaviors secondary to diagnosis and Adequacy of current interventions Details: I spent 35 minutes reviewing the record, seeing the patient and documenting in the medical record. Counseling provided to the patient/caregiver as outlined below. Addressed patient/caregiver concerns regarding current medication regime including effective adherence. Addressed patient/caregiver concerns regarding diagnosis and prognosis including accuracy of diagnosis, prognosis over time, impact of diagnosis. Addressed patient/caregiver concerns regarding impact of recent stressors. 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 Patient who was 22 yo found her and had to cut her down with help of his other brother Patient dropped out of college after sister and started into crime Legal hx: Incarcerat Substance History: Cocaine addiction, marijuana use Trauma History: Traumatic losses of 2 siblings (one to MVA, the other to suicide) Coding Level of Care Code Est Pt Level 4 (51274) Diagnoses Fatigue, unspecified type R53.83 Fatigue type: unspecified Bipolar II disorder F31.81 Long-term use of high-risk medication Z79.899 Other bipolar disorder F31.89 PTSD (post-traumatic stress disorder) F43.10
== END 2024-06-23 15:53 | disposition home or self-care (01) ==
LOC: HO.HOP 15:53
PROVIDERS: PCP Hospitalist; Visit Provider Clinical Nurse Specialist Psychiatric/Mental Health
DX: F31.81 Bipolar II disorder (principal); R53.83 Other fatigue; Z79.899 Other long term (current) drug therapy; F43.10 Post-traumatic stress disorder, unspecified
CPT/HCPCS: 99214

== ENCOUNTER 2024-07-21 11:23 | Outpatient (AMB) | payer OTHER, SELFPAY ==
--- NOTE | 2024-07-21 10:38 | MHC.OFFVISPS ---
Intake Intake Visit Reasons: f/u consultation Supervisor Transferring And Boxing Required: No Allergies tuna oil Allergy (Verified 07/02/23 13:25) Vomiting Medication List - Last Reconciled 07/21/24 by Briseida Polo APRN bupropion HCl XL (Wellbutrin XL) 150 mg PO QAM escitalopram oxalate (Lexapro) 10 mg PO DAILY levothyroxine 12.5 mcg (1/2 x 25 mcg) PO DAILY lithium carbonate 300 mg PO TID propranolol 10 mg (1/2 x 20 mg) PO BID trazodone 50 mg PO BEDTIME PRN HPI- Psychiatric Chief Complaint: f/u consultation HPI Narrative: Pt seen via telehealth appointment for follow up of Bipolar II Disorder and PTSD. He has been adherent with medications. Hi mood is stable. he appears and sound down. Themes of loneliness and feeling frustrated at slow progress at times. he continues to make good progress in areas of self car, self esteem maintenance, connecting with those that support him. He is taking care of his dog and has a new puppy that he is enjoying training. He is playing softball and helping family members as much as he can. He denies SI or HI. he tells me that the anniversary of his sister's was July 18 which could contribute to level of sadness. he reports he coped much better this year than in past years; he continues to see his therapist biweekly. Past Psychiatric History: IPLOC x2 spent ~ 2weeks at [facility] the first time and 6 days 2nd time Previous trials of Zoloft in retirement, no previous medication trials Subjective Subjective Subjective Medication Compliance: Yes Side effects from medications: No Review of Systems Medical Review of Systems: unchanged Mental Status Exam Mental Status Exam Patient Appearance: Well Grooomed and Appropriate Patient Orientation: Person, Place, Time and Situation Level of Consciousness: Awake and Appropriate Patient Behavior: Appropriate and Cooperative Mood Description: Sad Affect Description: Sad Patient Cognition Impaired: No Ability to Follow Directions: Good Speech Pattern: Clear, Appropriate and Coherent Memory Description: Intact Hallucinations: None Delusions: Not Present Thought Process: Intact and Goal Oriented Thought Content: positive for Intact and positive for Goal Oriented Judgement: Good Telehealth Telehealth Telehealth Platform: Other (please specify) ([email or web address]) Location of provider rendering services: practice address Location of patient: other [place] Patient Identification confirmed using: Name, : Yes Telehealth method: video Patient verbally consented to treatment: Yes Patient verbally consented to billing insurance company: Yes Patient informed of any privacy concerns related to visit: Yes Minutes spent on Phone/Video with Pt.: 35 Assessment and Plan Assessment & Plan (1) Bipolar II disorder: Status: Acute Code(s): F31.81 - Bipolar II disorder (2) PTSD (post-traumatic stress disorder): Status: Acute Code(s): F43.10 - Post-traumatic stress disorder, unspecified Plan continue current medication follow up in 3 weeks Medications: Refilled escitalopram oxalate (Lexapro) 10 mg PO DAILY 30 tabs 1RF propranolol 10 mg (1/2 x 20 mg) PO BID 60 tabs 1RF trazodone 50 mg PO BEDTIME PRN 30 tabs 0RF Insomnia bupropion HCl XL (Wellbutrin XL) 150 mg PO QAM 30 tabs 0RF lithium carbonate 300 mg PO TID 90 caps 0RF Counseling and coordination of Care Pt. Self Management counseling: Maintenance-social rhythm, Mod caffeine/ETOH intake and Nutrition education and improvement Medication management counseling: Effectiveness, Side effects, Dosing range, Duration, Drug interaction and Adherence Diagnosis and Prognosis Counseling: Accuracy of diagnosis, Prognosis over time, Impact of diagnosis on life functions, Impact of family relationship, Problematic behaviors secondary to diagnosis and Adequacy of current interventions Details: I spent 40 minutes reviewing the record, seeing the patient and documenting in the medical record. Counseling provided to the patient/caregiver as outlined below. Addressed patient/caregiver concerns regarding current medication regime including effective adherence. Addressed patient/caregiver concerns regarding diagnosis and prognosis including accuracy of diagnosis, prognosis over time, impact of diagnosis. Addressed patient/caregiver concerns regarding impact of recent stressors. 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 Patient who was 22 yo found her and had to cut her down with help of his other brother Patient dropped out of college after sister and started into crime Legal hx: Incarcerat Substance History: Cocaine addiction, marijuana use Trauma History: Traumatic losses of 2 siblings (one to MVA, the other to suicide) Coding Level of Care Code Est Pt Level 4 (41752) Diagnoses Bipolar II disorder F31.81 PTSD (post-traumatic stress disorder) F43.10
--- OUTSIDE RECORDS SUMMARY | 2024-07-21 13:40 | XMS_ITS | Clinical Summary ---
Author Organization [facility] Address [address] [place] [address] Care Team Providers Care Stove Carriage Operator Name Role Phone Pcp, No Primary Care [...] to complete this topic Insurance Care Teams Stove Carriage Operator Relationship Specialty Start Date End Date Pcp, No PCP - General General Medicine 06/24/23
== END 2024-07-21 11:23 | disposition home or self-care (01) ==
LOC: HO.HOP 11:23
PROVIDERS: PCP Hospitalist; Visit Provider Clinical Nurse Specialist Psychiatric/Mental Health
DX: F31.81 Bipolar II disorder (principal); F43.10 Post-traumatic stress disorder, unspecified
CPT/HCPCS: 99214

== ENCOUNTER 2024-08-11 14:29 | Outpatient (AMB) | payer OTHER, SELFPAY ==
--- NOTE | 2024-08-11 13:26 | MHC.OFFVISPS ---
Intake Intake Visit Reasons: follow up Yarn Mercerizer Operator Helper Required: No Allergies tuna oil Allergy (Verified 07/02/23 13:25) Vomiting Medication List - Last Reconciled 08/11/24 by Briseida Polo APRN bupropion HCl XL (Wellbutrin XL) 150 mg PO QAM escitalopram oxalate (Lexapro) 10 mg PO DAILY levothyroxine 12.5 mcg (1/2 x 25 mcg) PO DAILY lithium carbonate 300 mg PO TID propranolol 10 mg (1/2 x 20 mg) PO BID trazodone 50 mg PO BEDTIME PRN HPI- Psychiatric Chief Complaint: follow up HPI Narrative: Pt seen for follow up of Bipolar II Disorder and PTSD. He has been adherent with medications. His mood is stable. He reports feeling down. Themes of loneliness and feeling frustrated at slow progress at times. 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 he continues to make good progress in areas of self care, self esteem maintenance, connecting with those that support him. He is enjoying his dog and new puppy that he is training. He is playing softball and helping family members as much as he can. He denies SI or HI. He continues to see his therapist biweekly. Past Psychiatric History: IPLOC x2 spent ~ 2weeks at [facility] the first time and 6 days 2nd time [place] of [place] in [facility], no previous medication trials Subjective Subjective Subjective Medication Compliance: Yes Side effects from medications: No Review of Systems Medical Review of Systems: unchanged Mental Status Exam Mental Status Exam Patient Appearance: Well Grooomed and Appropriate Patient Orientation: Person, Place, Time and Situation Level of Consciousness: Awake and Appropriate Patient Behavior: Appropriate and Cooperative Mood Description: Depressed, Anxious and Sad Affect Description: Depressed, Anxious and Sad Patient Cognition Impaired: No Ability to Follow Directions: Good Speech Pattern: Clear, Appropriate and Coherent Memory Description: Intact Hallucinations: None Delusions: Not Present Thought Process: Intact and Goal Oriented Thought Content: positive for Intact and positive for Goal Oriented Judgement: Good Results Reviewed Results Reviewed: labs reviewed 06/23 TSH in normal range; lithium level 0.57 Assessment and Plan Assessment & Plan (1) Bipolar II disorder: Status: Acute Code(s): F31.81 - Bipolar II disorder (2) PTSD (post-traumatic stress disorder): Status: Acute Code(s): F43.10 - Post-traumatic stress disorder, unspecified Plan continue current medication follow up in 3 weeks Medications: Refilled bupropion HCl XL (Wellbutrin XL) 150 mg PO QAM 30 tabs 0RF escitalopram oxalate (Lexapro) 10 mg PO DAILY 30 tabs 1RF levothyroxine 12.5 mcg (1/2 x 25 mcg) PO DAILY 15 tabs 2RF propranolol 10 mg (1/2 x 20 mg) PO BID 60 tabs 1RF lithium carbonate 300 mg PO TID 90 caps 0RF trazodone 50 mg PO BEDTIME PRN 30 tabs 0RF Insomnia Counseling and coordination of Care Pt. Self Management counseling: Maintenance-social rhythm, Mod caffeine/ETOH intake and Nutrition education and improvement Medication management counseling: Effectiveness, Side effects, Dosing range, Duration, Drug interaction and Adherence Diagnosis and Prognosis Counseling: Accuracy of diagnosis, Prognosis over time, Impact of diagnosis on life functions, Impact of family relationship, Problematic behaviors secondary to diagnosis and Adequacy of current interventions Details: I spent 35 minutes reviewing the record, seeing the patient and documenting in the medical record. Counseling provided to the patient/caregiver as outlined below. Addressed patient/caregiver concerns regarding current medication regime including effective adherence. Addressed patient/caregiver concerns regarding diagnosis and prognosis including accuracy of diagnosis, prognosis over time, impact of diagnosis. Addressed patient/caregiver concerns regarding impact of recent stressors. 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 Patient who was 22 yo found her and had to cut her down with help of his other brother Patient dropped out of college after sister and started into crime Legal hx: Incarcerat Substance History: Cocaine addiction, marijuana use Trauma History: Traumatic losses of 2 siblings (one to MVA, the other to suicide) Coding Level of Care Code Est Pt Level 4 (63588) Diagnoses Bipolar II disorder F31.81 PTSD (post-traumatic stress disorder) F43.10
--- OUTSIDE RECORDS SUMMARY | 2024-08-11 15:37 | XMS_ITS | Patient Health Record ---
Author Organization [facility] Address [address] [place] [address] Care Team Providers Care Log Data Technician Name Role Phone YAIMAShaggy ORTEGA Primary Care Provider Allergies No Known Allergies Reason For Referral No Information Medications Medication SIG (Take, Route, Fr equency, Duration) Notes Start Date End Date Status Clindamycin HCl 300 MG 2 capsules Orally every 8 hrs; Duration: 7 days 09/10/2018 Active Social History Tobacco [...] W/U Status Risk Notes Problem Tobacco user (975513828) Nicotine dependence, unspecified, uncomplicated (F17.200) Active confirmed Problem Generalized anxiety disorder (08272836) Generalized anxiety disorder (F41.1) Active confirmed Problem Seasonal allergic rhinitis (564378175) Other seasonal allergic rhinitis (J30.2) Active confirmed Problem Dental caries (94131248) Dental caries, unspecified (K02.9) Active confirmed Problem Adult health examination (529271768) Encounter for general adult medical examination without abnormal findings (Z00.00) Active confirmed Plan Of Treatment Future Test Test Name Order Date Lipid Panel 05/13/2018 CBC 05/13/2018 COMPREHENSIVE METABOLIC PANEL 05/13/2018 Insurance Providers Payer Name Payer Address Payer Phone Subscriber Number Group Number Insured Name Patient Relationship to Insured Coverage Start Date Coverage End Date [employer] [facility] [address] [address] [place] [address] [id number] Rudy Rodriguez Self - patient is the insured Medical (General) History Medical History History ICD Code Anxiety disorder PTSD Surgical History Surgery Date(Month/Year) bacterial infection in right ankle WHEN 4 YO
--- OUTSIDE RECORDS SUMMARY | 2024-08-11 15:37 | XMS_ITS | Clinical Summary ---
Author Organization [facility] Address [address] [place] [address] Care Team Providers Care Permaculture Designer Name Role Phone Unavailable Primary Care Provider [...] 97 06/27/2023 8:24 AM EDT Temperature 36 C (96.8 F) 06/27/2023 8:24 AM EDT Respiratory Rate 16 [...] Td (1 - Tdap) 2005 Influenza Vaccine (Season Ended) 2024 Pneumococcal Vaccine Aged Out No long er eligible based on patient's age to complete this topic RSV Ped < 20 months Aged Out No longe r eligible based on patient's age to complete this topic Advance Directives For more information, please contact: [phone] Latest Code Status on File Code Status Date Activated Date Inactivated Comments Full Code 06/18/2023 8:57 AM 06/27/2023 7:49 PM This c ode status was ascertained in the following way: per unit protocol.
--- OUTSIDE RECORDS SUMMARY | 2024-08-11 15:37 | XMS_ITS ---
Author Name [facility] Organization Unknown Results Test Name/Text Value Interpretation Date Range Source SARS-CoV-2 RNA Resp Ql KRISTEN+probe Negative Normal 4 [facility] FLUBV RNA Nph Ql KRISTEN+probe Negative Normal 4 [facility] FLUAV RNA Nph Ql KRISTEN+probe Negative Normal 4 [facility] RSV RNA Resp Ql KRISTEN+probe Negative Normal 4 [facility] Ethanol SerPl-mCnc <10.0 mg/dL Normal 4 0 - 10 [facility] AST SerPl-cCnc 19.0 unit/L Normal 4 5 - 40 [facility] Calcium SerPl-mCnc 9.2 mg/dL Normal 4 8.4 - 10.2 [facility] ALT SerPl-cCnc 9.0 unit/L Normal 4 7 - 52 [facility] eGFRcr SerPlBld CKD-EPI 2020 97.0 mL/min/1.73m2 Normal 4 - [facility] Creat SerPl-mCnc 1.02 mg/dL Normal 4 0.7 - 1.3 [facility] Sodium SerPl-sCnc 135.0 mmol/L Normal 4 135 - 145 [facility] Prot SerPl-mCnc 7.3 g/dL Normal 4 6.4 - 8.5 [facility] BUN/Creat SerPl 18.6 Normal 4 12 - 20 [facility] Anion Gap SerPl-sCnc 6.0 Normal 02 4 5 - 14 [facility] Glucose SerPl-mCnc 100.0 mg/dL Normal 4 70 - 199 [facility] Chloride SerPl-sCnc 99.0 mmol/L Normal 01/30/20 2 4 98 - 107 [facility] ALP SerPl-cCnc 58.0 unit/L Normal 4 34 - 104 [facility] Potassium SerPl-sCnc 3.8 mmol/L Normal 02 4 3.5 - 5.1 [facility] Bilirub SerPl-mCnc 0.6 mg/dL Normal 4 0.3 - 1 [facility] Albumin SerPl-mCnc 4.7 g/dL Normal 4 3.5 - 5 [facility] BUN SerPl-mCnc 19.0 mg/dL Normal 4 9 - 20 [facility] CO2 SerPl-sCnc 30.0 mmol/L Normal 4 24 - 32 [facility] Basophils/leuk NFr Bld Auto 0.3 % Normal 4 0 - 2 [facility] Monocytes/leuk NFr Bld Auto 4.3 % Normal 4 2 - 12 [facility] MCHC RBC Auto-mCnc 34.2 g/dL Normal 4 32 - 36 [facility] RBC # Bld Auto 4.5 M/mcL Below low normal 4 4.7 - 6 [facility] Neutrophils # Bld Auto 6.01 K/mcL Normal 4 1.8 - 7.8 [facility] Lymphocytes/leuk NFr Bld Auto 22.7 % Normal 4 20 - 48 [facility] Eosinophil/leuk NFr Bld Auto 2.6 % Normal 4 0 - 6 [facility] PMV Bld Auto 9.4 FL Normal 4 7.4 - 11.4 [facility] Basophils # Bld Auto 0.03 K/mcL Normal 02 4 0 - 0.2 [facility] Hct VFr Bld Auto 39.2 % Below low normal 02 4 40 - 54 [facility] Neutrophils/leuk NFr Bld Auto 69.9 % Normal 4 44 - 74 [facility] WBC # Bld Auto 8.6 K/mcL Normal 4 4 - 10.5 [facility] Lymphocytes # Bld Auto 1.95 K/mcL Normal 4 1 - 3.2 [facility] Monocytes # Bld Auto 0.37 K/mcL Normal 02 4 0 - 0.8 [facility] RDW RBC Auto-Rto 12.0 % Below low normal 02 4 12.1 - 17.7 [facility] MCH RBC Qn Auto 29.8 pcg Normal 4 25 - 33 [facility] Platelet # Bld Auto 238.0 K/mcL Normal 01/30/20 2 4 150 - 450 [facility] Eosinophil # Bld Auto 0.22 K/mcL Normal 4 0 - 0.5 [facility] Hgb Bld-mCnc 13.4 g/dL Below low normal 4 13.5 - 18 [facility] MCV RBC Auto 87.1 FL Normal 4 78 - 100 [facility] oxyCODONE Ur Ql Scn Negative Normal 01/30/20 2 4 - [facility] PCP Ur Ql Scn Negative Normal 4 - [facility] Cannabinoids Ur Ql Scn Positive Abnormal 4 - [facility] fentaNYL Ur Ql Negative Normal 4 - [facility] Benzodiaz Ur Ql Scn Positive Abnormal 01/30/20 2 4 - [facility] Barbiturates Ur Ql Scn Negative Normal 4 - [facility] Cocaine Ur Ql Scn Positive Abnormal 4 - [facility] Opiates Ur Ql Scn Negative Normal 4 - [facility] Amphet Ur Ql Scn Negative Normal 4 - [facility] HCT 38.8 % Below low normal 4 40 - 52 [facility] ABSOLUTE NUCLEATED RBC 0.0 K/uL Normal 4 0 - 0.012 [facility] ABSOLUTE IMMATURE GRANULOCYTES 0.0 K/uL Normal 4 0 - 0.3 [facility] MONOCYTES 10.0 % Normal 4 0 - 12 [facility] BASOPHILS 1.0 % Normal 4 0 - 2 [facility] NUCLEATED RBC 0.0 % Normal 4 0 - 0.2 [facility] MCHC 35.1 g/dL Normal 4 31 - 36 [facility] ABSOLUTE BASO 0.1 K/uL Normal 4 0 - 0.2 [facility] ABSOLUTE EOS 0.1 K/uL Normal 4 0 - 0.7 [facility] MPV 11.0 fL Normal 4 8 - 12 [facility] ABSOLUTE LYMPHS 3.5 K/uL Normal 4 1.5 - 4.9 [facility] ABSOLUTE MONOS 0.6 K/uL Normal 4 0.2 - 1.5 [facility] GRANULOCYTES 29.0 % Normal 4 23 - 78 [facility] MCV 83.0 fL Normal 4 83 - 102 [facility] IMMATURE GRANULOCYTES 0.0 % Normal 4 0 - 0.45 [facility] RDW 13.3 % Normal 4 11.1 - 13.3 [facility] IMMATURE PLATELET FRACTION 7.1 % Above high normal 4 1 - 7 [facility] ABSOLUTE GRANULOCYTES 1.7 K/uL Below low normal 4 2.2 - 7.3 [facility] MCH 29.0 PG Normal 4 27 - 34 [facility] PLATELET COUNT 79.0 K/uL Below low normal 4 150 - 480 [facility] WBC 5.9 K/uL Normal 4 3.7 - 10.3 [facility] HGB 13.6 g/dL Normal 4 13.5 - 18 [facility] RBC 4.65 M/uL Normal 4 4.3 - 6 [facility] LYMPHS 59.0 % Above high normal 4 16 - 50 [facility] EOSINOPHILS 1.0 % Normal 4 0 - 6 [facility] BUN/CREAT.RATIO 20.0 Normal 4 [facility] CHLORIDE 109.0 mmol/L Above high normal 4 98 - 107 [facility] ALT (SGPT) 62.0 U/L Normal 4 12 - 78 [facility] A/G RATIO 1.1 g/dL Normal 4 [facility] AST (SGOT) 42.0 U/L Above high normal 4 15 - 37 [facility] PROTEIN, TOTAL 6.0 g/dL Below low normal 4 6.4 - 8.2 [facility] POTASSIUM SERUM 3.8 mmol/L Normal 4 3.5 - 5.1 [facility] SODIUM 141.0 mmol/L Normal 4 136 - 145 [facility] CO2 26.0 mmol/L Normal 4 21 - 32 [facility] ALBUMIN 3.2 g/dL Below low normal 4 3.4 - 5 [facility] ALKALINE PHOSPHATASE 91.0 U/L Normal 02 4 50 - 136 [facility] CREATININE 0.7 mg/dL Normal 4 0.55 - 1.3 [facility] GLOBULIN 2.8 g/dL Normal 4 2.4 - 4.2 [facility] BILIRUBIN,TOTAL 0.5 mg/dL Normal 4 0.2 - 1 [facility] BUN 14.0 mg/dL Normal 4 7 - 18 [facility] GLUCOSE 113.0 mg/dL Above high normal 4 74 - 100 [facility] PATIENT FASTING? YES Normal 4 [facility] GFRE 136.0 Normal 4 60 - [facility] A.PHAGOCYTOPHILUM,IG M <1:20 Normal 4 - [facility] INTERPRETATION SEE BELOW Normal 4 - [facility] A.PHAGOCYTOPHILUM,IG G <1:64 Normal 4 - [facility] LYME AB SCREEN (IGG/IGM) Normal 07/09/202 4 - [facility] GFRE 55.0 Below low normal 4 60 - [facility] CHLORIDE 101.0 mmol/L Normal 4 98 - 107 [facility] GLUCOSE 129.0 mg/dL Above high normal 4 74 - 100 [facility] BUN 31.0 mg/dL Above high normal 4 7 - 18 [facility] CO2 24.0 mmol/L Normal 4 21 - 32 [facility] CREATININE 1.54 mg/dL Above high normal 4 0.55 - 1.3 [facility] SODIUM 131.0 mmol/L Below low normal 4 136 - 145 [facility] POTASSIUM SERUM 3.6 mmol/L Normal 4 3.5 - 5.1 [facility] PATIENT FASTING? YES Normal 4 [facility] THICK SMEAR FOR BABESIOSIS NEGATIVE Normal 4 - [facility] THIN SMEAR FOR BABESIOSIS NEGATIVE Normal 4 - [facility] MCHC 35.7 g/dL Normal 4 31 - 36 [facility] ABSOLUTE IMMATURE GRANULOCYTES 0.0 K/uL Normal 4 0 - 0.3 [facility] GRANULOCYTES 84.0 % Above high normal 4 23 - 78 [facility] ABSOLUTE NUCLEATED RBC 0.0 K/uL Normal 4 0 - 0.012 [facility] MCV 83.0 fL Normal 4 83 - 102 [facility] HGB 16.4 g/dL Normal 4 13.5 - 18 [facility] RDW 12.9 % Normal 4 11.1 - 13.3 [facility] MPV 11.0 fL Normal 4 8 - 12 [facility] LYMPHS 9.0 % Below low normal 4 16 - 50 [facility] HCT 46.0 % Normal 4 40 - 52 [facility] ABSOLUTE LYMPHS 0.5 K/uL Below low normal 08/13/19 2 4 1.5 - 4.9 [facility] NUCLEATED RBC 0.0 % Normal 4 0 - 0.2 [facility] ABSOLUTE BASO 0.0 K/uL Normal 4 0 - 0.[address] [facility] ABSOLUTE GRANULOCYTES 4.4 K/uL Normal 4 2.2 - 7.3 [facility] RBC 5.57 M/uL Normal 4 4.3 - 6 [facility] ABSOLUTE EOS 0.0 K/uL Normal 4 0 - 0.7 [facility] MONOCYTES 6.0 % Normal 4 0 - 12 [facility] EOSINOPHILS 0.0 % Normal 4 0 - 6 [facility] MCH 29.0 PG Normal 4 27 - 34 [facility] IMMATURE PLATELET FRACTION 3.9 % Normal 4 1 - 7 [facility] PLATELET COUNT 63.0 K/uL Below low normal 4 150 - 480 [facility] ABSOLUTE MONOS 0.3 K/uL Normal 4 0.2 - 1.5 [facility] IMMATURE GRANULOCYTES 0.0 % Normal 4 0 - 0.45 [facility] WBC 5.2 K/uL Normal 4 3.7 - 10.3 [facility] BASOPHILS 0.0 % Normal 4 0 - 2 [facility] GFRE 51.0 Below low normal 4 60 - [facility] ALKALINE PHOSPHATASE 125.0 U/L Normal 02 4 50 - 136 [facility] BILIRUBIN,TOTAL 0.6 mg/dL Normal 4 0.2 - 1 [facility] CREATININE 1.64 mg/dL Above high normal 4 0.55 - 1.3 [facility] POTASSIUM SERUM 4.0 mmol/L Normal 4 3.5 - 5.1 [facility] GLUCOSE 115.0 mg/dL Above high normal 4 74 - 100 [facility] CHLORIDE 97.0 mmol/L Below low normal 4 98 - 107 [facility] A/G RATIO 1.3 g/dL Normal 4 [facility] ALT (SGPT) 98.0 U/L Above high normal 4 12 - 78 [facility] GLOBULIN 3.2 g/dL Normal 4 2.4 - 4.2 [facility] AST (SGOT) 72.0 U/L Above high normal 4 15 - 37 [facility] CO2 27.0 mmol/L Normal 4 21 - 32 [facility] PROTEIN, TOTAL 7.3 g/dL Normal 4 6.4 - 8.2 [facility] SODIUM 130.0 mmol/L Below low normal 4 136 - 145 [facility] BUN 29.0 mg/dL Above high normal 4 7 - 18 [facility] ALBUMIN 4.1 g/dL Normal 4 3.4 - 5 [facility] BUN/CREAT.RATIO 17.7 Normal 4 [facility] PATIENT FASTING? UNKNOWN Normal 4 [facility] INFLUENZAE A/B VIRUS ANTIGEN NONE DETECTED Normal 4 [facility] LITHIUM SERPL SCNC 0.1 mmol/L Below low normal 06/23 4 0.6 - 1.2 [facility] LIPASE SERPL CCNC 25.0 U/L Normal 4 11 - 82 [facility] AMYLASE SERPL CCNC 38.0 U/L Normal 4 29 - 103 [facility] BILIRUB DIRECT SERPL MCNC 0.1 mg/dL Normal 4 0 - 0.2 [facility] BILIRUB SERPL MCNC 0.6 mg/dL Normal 4 0.3 - 1 [facility] IMMATURE GRANULOCYTE, PERCENT 0.2 % Normal 4 0 - 1 [facility] BASOPHILS IN BLOOD BY AUTOMATED COUNT 0.0 K/uL Normal 4 0 - 0.2 [facility] IMMATURE GRANULOCYTE, ABSOLUTE 0.02 k/uL Normal 4 - 0.1 [facility] BASOPHILS NFR BLD AUTO 0.4 % Normal 4 0 - 2 [facility] HGB BLD MCNC 14.2 g/dL Normal 4 13.5 - 18 [facility] NEUTROPHILS NFR BLD AUTO 70.3 % Normal 4 44 - 74 [facility] MCHC RBC AUTO MCNC 35.9 g/dL Normal 4 32 - 36 [facility] HCT VFR BLD AUTO 39.5 % Below low normal 02 4 40 - 54 [facility] MCH RBC QN AUTO 30.0 pg Normal 4 25 - 33 [facility] LYMPHOCYTES NO. BLD AUTO 1.9 K/uL Normal 4 1 - 3.2 [facility] EOSINOPHIL NFR BLD AUTO 1.0 % Normal 4 0 - 6 [facility] MONOCYTES NO. BLD AUTO 0.4 K/uL Normal 4 0 - 0.8 [facility] RBC NO. BLD AUTO 4.74 M/uL Normal 4 4.7 - 6 [facility] RDW RBC AUTO RTO 13.0 % Normal 4 12.1 - 17.7 [facility] LYMPHOCYTES NFR BLD AUTO 23.1 % Normal 4 20 - 48 [facility] NUCLEATED RBC 0.0 % Normal 4 0 - 1 [facility] EOSINOPHIL NO. BLD AUTO 0.1 K/uL Normal 4 0 - 0.5 [facility] PMV BLD AUTO 9.5 fL Normal 4 7.4 - 11.4 [facility] PLATELET NO. BLD AUTO 253.0 K/uL Normal 4 150 - 450 [facility] WBC NO. BLD AUTO 8.4 K/uL Normal 4 4 - 10.5 [facility] MCV RBC AUTO 83.3 fL Normal 4 78 - 100 [facility] NEUTROPHILS NO. BLD AUTO 5.9 K/uL Normal 4 1.8 - 7.8 [facility] MONOCYTES NFR BLD AUTO 5.0 % Normal 4 2 - 12 [facility] FLUBV RNA Nph Ql KRISTEN+non-probe NEGATIVE Normal 4 [facility] FLUAV RNA Nph Ql KRISTEN+non-probe NEGATIVE Normal 4 [facility] Service Cmmt XXX-Imp Cepheid GeneXpert (RT-PCR) [facility] Normal 4 [facility] RSV RNA Nph Ql KRISTEN+non-probe NEGATIVE Normal 4 [facility] SPECIMEN SOURCE XXX NASOPHARYNGEAL Normal 4 [facility] CREAT SERPL MCNC 0.9 mg/dL Normal 4 0.7 - 1.3 [facility] GLUCOSE SERPL MCNC 106.0 mg/dL Normal 4 70 - 199 [facility] ANION GAP SERPL SCNC 7.0 mmol/L Normal 02 4 5 - 14 [facility] SODIUM SERPL SCNC 137.0 mmol/L Normal 4 135 - 145 [facility] CHLORIDE SERPL SCNC 104.0 mmol/L Normal 06/17/19 2 4 98 - 107 [facility] BUN SERPL MCNC 13.0 mg/dL Normal 4 9 - 20 [facility] POTASSIUM SERPL SCNC 4.1 mmol/L Normal 02 4 3.5 - 5.1 [facility] Glomerular filtration rate/1.73 sq M. predicted 114.0 Normal 4 60 - [facility] HCO3 SER SCNC 26.0 mmol/L Normal 4 24 - 32 [facility] CALCIUM SERPL MCNC 9.5 mg/dL Normal 4 8.4 - 10.2 [facility] AST SERPL CCNC 22.0 U/L Normal 4 5 - 40 [facility] LDH SERPL L TO P CCNC 166.0 U/L Normal 4 125 - 220 [facility] ALP SERPL-CCNC 54.0 U/L Normal 4 34 - 104 [facility] ALT SERPL CCNC 10.0 U/L Normal 4 7 - 52 [facility] Prot Ur Ql Strip.auto NEGATIVE Normal 4 - [facility] Nitrite Ur Ql Strip.auto NEGATIVE Normal 4 - [facility] Clarity Ur Refract.auto CLOUDY Normal 4 [facility] Glucose Ur Ql Strip.auto NEGATIVE Normal 4 - [facility] Leukocyte esterase Ur Ql Strip.auto NEGATIVE Normal 4 - [facility] Ketones Ur Ql Strip.auto 15.0 mg/dL Abnormal 4 - [facility] Hgb Ur Ql Strip.auto TRACE Abnormal 02 4 - [facility] Sp Gr Ur Strip.auto >1.030 Above high normal 4 1.005 - 1.03 [facility] pH Ur Strip.auto 6.0 Normal 4 4.5 - 8 [facility] SPECIMEN SOURCE XXX URINE CLEAN CATCH Normal 4 [facility] BZE Ur Ql Scn NEGATIVE Normal 4 - [facility] Amphet Ur Ql Scn NEGATIVE Normal 4 - [facility] Barbiturates Ur Ql Scn NEGATIVE Normal 4 - [facility] Cannabinoids Ur Ql Scn POSITIVE Abnormal 4 - [facility] SQUAMOUS NO./AREA URNS LPF 1.0 /LPF Normal 4 0 - 5 [facility] WBC number/area UrnS Auto 1.0 /HPF Normal 4 0 - 5 [facility] RBC number/area UrnS Auto 1.0 /HPF Normal 4 0 - 3 [facility] History of Medication Use Medication Directions Dispensed Refills Start Date End Date Stat hydrOXYzine HCL (ATARAX) 50 mg tablet Take 1 tablet (50 mg total) by mouth 3 (three) times a day for 10 days. 02/04/2024 5 active acetaminophen (TYLENOL) tablet 650 mg 650 mg, oral, Every 6 hours PRN, mild pain, Starting on Sat01/30/24 at 1437 01/30/2024 active escitalopram (LEXAPRO) tablet 5 mg 5 mg, oral, Daily, First dose on Alessandra 01/30/24 at 1025 01/30/2024 active lithium (LITHOBID) CR tablet 300 mg 300 mg, oral, Daily, First dose on Sat01/30/24 at 1032, Do not crush, chew, or split. 01/30/2024 active magnesium hydroxide (MILK OF MAGNESIA) 400 mg/5 mL suspension 30 mL 30 mL, oral, Daily PRN, constipation, Starting on Sat01/30/24 at 1620, 1st line for treatment of constipation - give scheduled if no bowel movement in past 24 hours 01/30/2024 active nicotine (NICODERM CQ) 21 mg/[address] 1 patch on the skin 1 (one) time each day. 01/30/2024 active traZODone (DESYREL) tablet 50 mg 50 mg, oral, Nightly PRN, sleep, Starting on Sat01/30/24 at 1620 01/30/2024 active lithium 300 mg capsule Take 1 capsule (300 mg total) by mouth 3 (three) times a day with meals. 12/20/2023 4 active buPROPion SR (WELLBUTRIN SR) 12 hr tablet 100 mg 100 mg, oral, 2 times daily, First dose on Sat01/30/24 at 1025, Do not crush, chew, or split. 10/23/2023 active escitalopram (LEXAPRO) tablet 10 mg Take 1 tablet (10 mg total) by mouth daily. 06/25/2023 4 active nicotine polacrilex (NICORETTE) 2 MG gum Use as directed 1 each (2 mg total) in the mouth or throat every hour as needed for smoking cessation (Nicotine craving). 06/18/2023 4 aborted folic acid (FOLVITE) tablet 1 mg 1 mg, Oral, Daily, First dose on Sat06/18/23 at 0900 06/18/2023 4 aborted thiamine mononitrate (VITAMIN B-1) tablet 100 mg 100 mg, Oral, Daily, First dose on Sat06/18/23 at 0900 06/18/2023 4 aborted acetaminophen (TYLENOL) tablet 650 mg 650 mg, Oral, Every 4 hours PRN, mild pain (1-3), Starting on Sat06/18/23 at 0850 06/17/2023 4 active nicotine (NICODERM CQ) 7 MG/24HR 1 patch 1 patch, Transdermal, Administer over 24 Hours, Once, On Sat06/17/23 at 1400, For 1 dose 06/17/2023 4 aborted iopamidol (ISOVUE-370) 76 % injection 0-150 mL 0-150 mL, Intravenous, IMG once as needed, contrast, Starting on Sat06/17/23 at 1258, For 1 dose, Radiology Contrast 06/17/2023 completed ondansetron (ZOFRAN-ODT) 4 MG disintegrating tablet 4 mg 4 mg, Oral, Every 6 hours PRN, nausea, Starting on Sat06/17/23 at 1130 06/17/2023 active Problems Problem Status Onset Date Problem Type Date of Resolution Source PTSD (post-traumatic stress disorder) active 2024-01-31 ProblemAct [facility] MDD (major depressive disorder), recurrent severe, 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 2024-01-30 ProblemAct [facility] Borderline personality disorder active 2024-01-31 ProblemAct [facility] Cannabis use disorder, severe, dependence active 2024-01-31 ProblemAct [facility] Dental caries active [facility] Depression active [facility] Borderline personality disorder active 2023-06-18 [facility] Cannabis use disorder, severe, dependence active 2023-06-18 [facility] Chronic dental infection active EncounterDiagnosisAct [facility] H PTSD (post-traumatic stress disorder) active 2023-06-18 [facility] MDD (major depressive disorder), recurrent severe, 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 2023-06-18 [facility] Nicotine dependence active En[facility]DiagnosisAc t [facility] Encounters Encounter Type Encounter Reason Primary Diagnosis Location Date Emergency SI Nicotine depende nce, unspecified, with unspecified nicotine-induced disorders [facility] 01/29/2024 Ambulatory [facility] 11/22/2023 Ambulatory [facility], [facility] 08/16/2023 Emergency HIGH FEVER, SOB HIGH FEVER, SOB [facility] 08/13/2023 Emergency Depression, unspecified [facility] 06/17/2023 Care Team Organization Name Specialty Phone Email Start Date End Da te Trending Taste [facility] 2024 [facility] 02/01/2024 [facility] 01/30/2024 [facility] NO PHYSICIAN Primary Care 01/30/2024 [facility] provided,No Primary Care 08/16/2023 01/08/2024 [facility], [facility]. No provided Primary Care 08/16/2023 [facility] provided,No Primary Care 08/13/2023 12/12/2023 [facility] No provided Primary Care 08/13/2023 [facility] 2023 [facility] 06/17/2023
--- OUTSIDE RECORDS SUMMARY | 2024-08-11 15:37 | XMS_ITS | Clinical Summary ---
Author Organization [facility] Address [address] [place] [address] Phone Care Team Providers Care Book Sorter Name Role Phone Physician, No Pcp Primary [...] Date Borderline personality disorder (CMS/HCC V24, CM S/[facility] V28) 01/31/2024 Cannabis use disorder, sever e, dependence ([facility] V24, [facility] V28) 01/31/2024 PTSD (post-traumatic stress disorder) 01/31/2024 MDD (major depressive disord er), recurrent severe, without psychosis ([facility] V24, [facility] V28) 01/30/2024 Surgical History Surgery Date Site/Laterality [...] 51 02/04/2024 8:00 AM EST Temperature 37.1 C (98.7 F) 02/04/2024 8:00 AM EST Respiratory Rate 18 02/04/2024 8:00 AM EST [...] Health Screening 03/12/2023 COVID-19 Vaccine (1 - 4-2 5 season) 2023 Influenza Vaccine (Season Ended) [...] currently active code status orders. Care Teams Book Sorter Relationship Specialty Start Date End Date Physician, No Pcp PCP - General 01/29/24
--- OUTSIDE RECORDS SUMMARY | 2024-08-11 15:37 | XMS_ITS | Clinical Summary ---
Author Organization [facility] Address [address] [place] [address] Care Team Providers Care Electron Gun Inspector Name Role Phone Pcp, No Primary Care [...] to complete this topic Insurance Care Teams Electron Gun Inspector Relationship Specialty Start Date End Date Pcp, No PCP - General General Medicine 06/24/23
== END 2024-08-11 15:24 | disposition home or self-care (01) ==
LOC: HO.HOP 14:29
PROVIDERS: PCP Hospitalist; Visit Provider Clinical Nurse Specialist Psychiatric/Mental Health
DX: F31.81 Bipolar II disorder (principal); F43.10 Post-traumatic stress disorder, unspecified
CPT/HCPCS: 99214

== ENCOUNTER 2024-09-08 14:35 | Outpatient (AMB) | payer OTHER, SELFPAY ==
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
--- OUTSIDE RECORDS SUMMARY | 2024-09-08 15:18 | XMS_ITS | Clinical Summary ---
Author Organization [facility] Address [address] [place] [address] Care Team Providers Care Natural Resources Extension Educator Name Role Phone Pcp, No Primary Care [...] to complete this topic Insurance Care Teams Natural Resources Extension Educator Relationship Specialty Start Date End Date Pcp, No PCP - General General Medicine 06/24/23
--- OUTSIDE RECORDS SUMMARY | 2024-09-08 15:18 | XMS_ITS | Clinical Summary ---
Author Organization [facility] Address [address] [place] [address] Phone Care Team Providers Care Kaiawhina Name Role Phone Physician, No Pcp Primary [...] Date Borderline personality disorder (CMS/HCC V24, CM S/[facility] V28) 01/31/2024 Cannabis use disorder, sever e, dependence ([facility] [place]24, [facility] V28) 01/31/2024 PTSD (post-traumatic stress disorder) 01/31/2024 MDD (major depressive disord er), recurrent severe, without psychosis ([facility] [place]24, [facility] V28) 01/30/2024 Surgical History Surgery Date Site/Laterality [...] series) 2005 Cholesterol Screening (Lipid Panel) 03/12/2023 HIV Screening 03/12/2023 Hepatitis C Screening 03/12/2023 Social Influencers of Health Screening 03/12/2023 COVID-19 Vaccine ( - 2023-2 5 season) 2023 Depression Screening 02/12/2024 Influenza Vaccine (#1) 2024 HIB Vaccines Aged Out No longer [...] 5 Years) and At-Risk Patients (6 to 49 [...] currently active code status orders. Care Teams Kaiawhina Relationship Specialty Start Date End Date Physician, No Pcp PCP - General 01/29/24
--- OUTSIDE RECORDS SUMMARY | 2024-09-08 15:18 | XMS_ITS | Patient Health Record ---
Author Organization [facility] Address [address] [place] [address] Care Team Providers Care Miller Supervisor Name Role Phone YAIMAShaggy ORTEGA Primary Care [...] W/U Status Risk Notes Problem Tobacco user ([id number]) Nicotine dependence, unspecified, uncomplicated (F17.200) Active confirmed Problem Generalized anxiety disorder (68336854) Generalized anxiety disorder (F41.1) Active confirmed Problem Seasonal allergic rhinitis (313656826) Other seasonal allergic rhinitis (J30.2) Active confirmed Problem Dental caries (58695351) Dental caries, unspecified (K02.9) Active confirmed Problem Adult health examination (813836208) Encounter for general adult medical examination without abnormal findings (Z00.00) Active confirmed Plan Of Treatment Future Test Test Name Order Date Lipid Panel 05/13/2018 CBC 05/13/2018 COMPREHENSIVE METABOLIC PANEL 05/13/2018 Insurance Providers Payer Name Payer Address Payer Phone Subscriber Number Group Number Insured Name Patient Relationship to Insured Coverage Start Date Coverage End Date [employer] [facility] [address] [address] [place] [address] [id number] Rudy Rodriguez Self - patient is the insured Medical (General) History Medical History History ICD Code Anxiety disorder PTSD Surgical History Surgery Date(Month/Year) bacterial infection in right ankle WHEN 4 YO
--- OUTSIDE RECORDS SUMMARY | 2024-09-08 15:18 | XMS_ITS | Clinical Summary ---
Author Organization [facility] Address [address] [place] [address] Care Team Providers Care Electric Distribution Checker Name Role Phone Unavailable Primary Care Provider [...] (1 - Tdap) 2005 Influenza Vaccine (#1) 2024 Pneumococcal Vaccine Aged Out No long er eligible based on patient's age to complete this topic RSV Ped < 20 months Aged Out No longe r eligible based on patient's age to complete this topic Advance Directives For more information, please contact: [phone] Latest Code Status on File Code Status Date Activated Date Inactivated Comments Full Code 06/18/2023 8:57 AM 06/27/2023 7:49 PM This c ode status was ascertained in the following way: per unit protocol.
== END 2024-09-08 15:35 | disposition home or self-care (01) ==
LOC: HO.HOP 14:35
PROVIDERS: PCP Hospitalist; Visit Provider Clinical Nurse Specialist Psychiatric/Mental Health
DX: F31.81 Bipolar II disorder (principal); F43.10 Post-traumatic stress disorder, unspecified
CPT/HCPCS: 90833; 99213

== ENCOUNTER 2024-10-13 14:26 | Outpatient (AMB) | payer OTHER, SELFPAY ==
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
--- OUTSIDE RECORDS SUMMARY | 2024-10-13 15:38 | XMS_ITS | Clinical Summary ---
Author Organization [facility] Address [address] [place] [address] Care Team Providers Care Radioactivity Technician Name Role Phone Pcp, No Primary Care [...] of 3 - 19+ 3-dose series) 2005 HPV Vaccines (1 - 3-dose SCD M series) 2013 COVID-19 Vaccine (2023-2 5 season) 2023 Influenza Vaccine 09/11/2024 Pneumococcal Vaccine: Pediat truong (0-5 Years) and At-Risk Patients (6 to 49 Years) Aged Out No longer eligible b ased on patient's age to complete this topic Insurance PPO Care Teams Radioactivity Technician Relationship Specialty Start Date End Date Pcp, No PCP - General General Medicine 06/24/23
--- OUTSIDE RECORDS SUMMARY | 2024-10-13 15:38 | XMS_ITS | Clinical Summary ---
Author Organization [facility] Address [address] [place] [address] Phone Care Team Providers Care Senior Care Assistant Name Role Phone Physician, No Pcp Primary [...] Date Borderline personality disorder (CMS/HCC V24, CM S/[facility] V28) 01/31/2024 Cannabis use disorder, sever e, dependence ([facility] [place]24, [facility] V28) 01/31/2024 PTSD (post-traumatic stress disorder) 01/31/2024 MDD (major depressive disord er), recurrent severe, without psychosis ([facility] [place]24, [facility] V28) 01/30/2024 Surgical History Surgery Date Site/Laterality [...] 03/12/2023 Social Influencers of Health Screening 03/12/2023 Depression Screening 02/12/2024 COVID-19 Vaccine (1 - 4-2 5 season) 2024 Influenza Vaccine (#1) 2024 HIB Vaccines Aged [...] currently active code status orders. Care Teams Senior Care Assistant Relationship Specialty Start Date End Date Physician, No Pcp PCP - General 01/29/24
--- OUTSIDE RECORDS SUMMARY | 2024-10-13 15:38 | XMS_ITS | Clinical Summary ---
Author Organization [facility] Address [address] [place] [address] Care Team Providers Care Volunteer Patient Representative Name Role Phone Unavailable Primary Care [...] Advance Directives For more information, please contact: [phone] Latest Code Status on File Code Status Date Activated Date Inactivated Comments Full Code 06/18/2023 8:57 AM 06/27/2023 7:49 PM This c ode status was ascertained in the following way: per unit protocol.
== END 2024-10-13 15:14 | disposition home or self-care (01) ==
LOC: HO.HOP 14:26
PROVIDERS: PCP Hospitalist; Visit Provider Clinical Nurse Specialist Psychiatric/Mental Health
DX: F31.81 Bipolar II disorder (principal); F43.10 Post-traumatic stress disorder, unspecified
CPT/HCPCS: 99214

== ENCOUNTER 2024-11-24 14:34 | Outpatient (AMB) | payer OTHER, SELFPAY ==
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
--- OUTSIDE RECORDS SUMMARY | 2024-11-24 17:27 | XMS_ITS | Clinical Summary ---
Author Organization [facility] Address [address] [place] [address] Care Team Providers Care Development Educator Name Role Phone Unavailable Primary Care Provider [...] Advance Directives For more information, please contact: [phone] Latest Code Status on File Code Status Date Activated Date Inactivated Comments Full Code 06/18/2023 8:57 AM 06/27/2023 7:49 PM This c ode status was ascertained in the following way: per unit protocol.
--- OUTSIDE RECORDS SUMMARY | 2024-11-24 17:27 | XMS_ITS | Clinical Summary ---
Author Organization [facility] Address [address] [place] [address] Phone Care Team Providers Care Computer Methods Analyst Name Role Phone Physician, No Pcp Primary [...] Date Borderline personality disorder (CMS/HCC V24, CM S/[facility] V28) 01/31/2024 Cannabis use disorder, sever e, dependence ([facility] V24, [facility] V28) 01/31/2024 PTSD (post-traumatic stress disorder) 01/31/2024 MDD (major depressive disord er), recurrent severe, without psychosis ([facility] V24, [facility] V28) 01/30/2024 Surgical History Surgery Date Site/Laterality [...] (1 - 3-dose SCD M series) 2013 Cholesterol Screening (Lipid Panel) 03/12/2023 HIV Screening 03/12/2023 Hepatitis C Screening 03/12/2023 Social Influencers of Health Screening 03/12/2023 Depression Screening 02/12/2024 COVID-19 Vaccine (1 - 2023-2 5 season) 2024 Influenza Vaccine (#1) 2024 RSV Immunization Adult Patie nts (1 - 1-dose 75+ series) 2061 HIB Vaccines Aged Out No longer eligi [...] currently active code status orders. Care Teams Computer Methods Analyst Relationship Specialty Start Date End Date Physician, No Pcp PCP - General 01/29/24
--- OUTSIDE RECORDS SUMMARY | 2024-11-24 17:27 | XMS_ITS | Patient Health Record ---
Author Organization [facility] Address [address] [place] [address] Care Team Providers Care English Composition Instructor Name Role Phone YAIMAShaggy ORTEGA Primary Care [...] W/U Status Risk Notes Problem Tobacco user (549650206) Nicotine dependence, unspecified, uncomplicated (F17.200) Active confirmed Problem Generalized anxiety disorder (58297873) Generalized anxiety disorder (F41.1) Active confirmed Problem Seasonal allergic rhinitis (422099501) Other seasonal allergic rhinitis (J30.2) Active confirmed Problem Dental caries (69374545) Dental caries, unspecified (K02.9) Active confirmed Problem Adult health examination (198834489) Encounter for general adult medical examination without abnormal findings (Z00.00) Active confirmed Plan Of Treatment Future Test Test Name Order Date Lipid Panel 05/13/2018 CBC 05/13/2018 COMPREHENSIVE METABOLIC PANEL 05/13/2018 Insurance Providers Payer Name Payer Address Payer Phone Subscriber Number Group Number Insured Name Patient Relationship to Insured Coverage Start Date Coverage End Date [employer] [facility] [address] [address] [place] [address] [id number] Rudy Rodriguez Self - patient is the insured Medical (General) History Medical History History ICD Code Anxiety disorder PTSD Surgical History Surgery Date(Month/Year) bacterial infection in right ankle WHEN 4 YO
--- OUTSIDE RECORDS SUMMARY | 2024-11-24 17:27 | XMS_ITS | Clinical Summary ---
Author Organization [facility] Address [address] [place] [address] Care Team Providers Care Diamond Sizer And Grader Name Role Phone Pcp, No Primary Care [...] - 19+ 3-dose series) 2005 Influenza Vaccine 09/11/2024 COVID-19 Vaccine ( - 2023-2 5 season) 2024 HPV Vaccines (No Doses Required) Completed Pneumococcal Vaccine: Pediat truong (0-5 Years) and At-Risk Patients (6 to 49 Years) Aged Out No longer eligible b ased on patient's age to complete this topic Insurance PPO Care Teams Diamond Sizer And Grader Relationship Specialty Start Date End Date Pcp, Esther PCP - General General Medicine 06/24/23
== END 2024-11-24 15:08 | disposition home or self-care (01) ==
LOC: HO.HOP 14:34
PROVIDERS: PCP Hospitalist; Visit Provider Clinical Nurse Specialist Psychiatric/Mental Health
DX: F31.81 Bipolar II disorder (principal); F43.10 Post-traumatic stress disorder, unspecified
CPT/HCPCS: 99214

== ENCOUNTER 2024-12-29 14:37 | Outpatient (AMB) | payer OTHER, SELFPAY ==
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
--- OUTSIDE RECORDS SUMMARY | 2024-12-30 12:25 | XMS_ITS | Patient Health Record ---
Author Organization [facility] Address [address] [place] [address] Care Team Providers Care Roll Cutter Name Role Phone YAIMAShaggy ORTEGA Primary Care [...] W/U Status Risk Notes Problem Tobacco user (043649139) Nicotine dependence, unspecified, uncomplicated (F17.200) Active confirmed Problem Generalized anxiety disorder (33192985) Generalized anxiety disorder (F41.1) Active confirmed Problem Seasonal allergic rhinitis (744701263) Other seasonal allergic rhinitis (J30.2) Active confirmed Problem Dental caries (84092588) Dental caries, unspecified (K02.9) Active confirmed Problem Adult health examination (164512422) Encounter for general adult medical examination without abnormal findings (Z00.00) Active confirmed Plan Of Treatment Future Test Test Name Order Date Lipid Panel 05/13/2018 CBC 05/13/2018 COMPREHENSIVE METABOLIC PANEL 05/13/2018 Insurance Providers Payer Name Payer Address Payer Phone Subscriber Number Group Number Insured Name Patient Relationship to Insured Coverage Start Date Coverage End Date [employer] [facility] [address] [address] [place] [address] [id number] Rudy Rodriguez Self - patient is the insured Medical (General) History Medical History History ICD Code Anxiety disorder PTSD Surgical History Surgery Date(Month/Year) bacterial infection in right ankle WHEN 4 YO
--- OUTSIDE RECORDS SUMMARY | 2024-12-30 12:25 | XMS_ITS | Clinical Summary ---
Author Organization [facility] Address [address] [place] [address] Care Team Providers Care Enterprise Application Analyst Name Role Phone Unavailable Primary Care Provider [...] Advance Directives For more information, please contact: [phone] Latest Code Status on File Code Status Date Activated Date Inactivated Comments Full Code 06/18/2023 8:57 AM 06/27/2023 7:49 PM This c ode status was ascertained in the following way: per unit protocol.
--- OUTSIDE RECORDS SUMMARY | 2024-12-30 12:25 | XMS_ITS | Clinical Summary ---
Author Organization [facility] Address [address] [place] [address] Care Team Providers Care Bender Machine Name Role Phone Pcp, No Primary Care [...] complete this topic Insurance PPO Care Teams Bender Machine Relationship Specialty Start Date End Date Pcp, Esther PCP - General General Medicine 06/24/23
--- OUTSIDE RECORDS SUMMARY | 2024-12-30 12:25 | XMS_ITS | Clinical Summary ---
Author Organization [facility] Address [address] [place] [address] Phone Care Team Providers Care Market Garden Worker Name Role Phone Physician, No Pcp Primary [...] Date Borderline personality disorder (CMS/HCC V24, CM S/[facility] V28) 01/31/2024 Cannabis use disorder, sever e, dependence ([facility] V24, [facility] V28) 01/31/2024 PTSD (post-traumatic stress disorder) 01/31/2024 MDD (major depressive disord er), recurrent severe, without psychosis ([facility] V24, [facility] V28) 01/30/2024 Surgical History Surgery Date Site/Laterality [...] Depression Screening 02/12/2024 COVID-19 Vaccine (1 - 2024-2 6 season) 2024 Influenza Vaccine (#1) 2024 RSV [...] 4:20 PM 02/04/2024 5:36 PM This is o rder is used when code status has not [...] currently active code status orders. Care Teams Market Garden Worker Relationship Specialty Start Date End Date Physician, No Pcp PCP - General 01/29/24
== END 2024-12-29 15:09 | disposition home or self-care (01) ==
LOC: HO.HOP 14:37
PROVIDERS: PCP Hospitalist; Visit Provider Clinical Nurse Specialist Psychiatric/Mental Health
DX: F31.81 Bipolar II disorder (principal); F43.10 Post-traumatic stress disorder, unspecified
CPT/HCPCS: 99214

== ENCOUNTER 2025-02-09 14:39 | Outpatient (AMB) | payer OTHER, SELFPAY ==
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
--- OUTSIDE RECORDS SUMMARY | 2025-02-09 18:18 | XMS_ITS | Patient Health Record ---
Author Organization [facility] Address [address] [place] [address] Care Team Providers Care Bark Spudder Name Role Phone YAIMAShaggy ORTEGA Primary Care [...] W/U Status Risk Notes Problem Tobacco user (645611728) Nicotine dependence, unspecified, uncomplicated (F17.200) Active confirmed Problem Generalized anxiety disorder (94570521) Generalized anxiety disorder (F41.1) Active confirmed Problem Seasonal allergic rhinitis (263082207) Other seasonal allergic rhinitis (J30.2) Active confirmed Problem Dental caries (68853842) Dental caries, unspecified (K02.9) Active confirmed Problem Adult health examination (119567054) Encounter for general adult medical examination without abnormal findings (Z00.00) Active confirmed Plan Of Treatment Future Test Test Name Order Date Lipid Panel 05/13/2018 CBC 05/13/2018 COMPREHENSIVE METABOLIC PANEL 05/13/2018 Insurance Providers Payer Name Payer Address Payer Phone Subscriber Number Group Number Insured Name Patient Relationship to Insured Coverage Start Date Coverage End Date [employer] [facility] [address] [address] [place] [address] [id number] Rudy Rodriguez Self - patient is the insured Medical (General) History Medical History History ICD Code Anxiety disorder PTSD Surgical History Surgery Date(Month/Year) bacterial infection in right ankle WHEN 4 YO
--- OUTSIDE RECORDS SUMMARY | 2025-02-09 18:18 | XMS_ITS | Clinical Summary ---
Author Organization [facility] Address [address] [place] [address] Care Team Providers Care Computer Programmer Chief Name Role Phone Pcp, No Primary Care [...] Influenza Vaccine 09/11/2024 COVID-19 Vaccine ( - 2024-2 6 season) 2024 HPV Vaccines (No Doses Required) Completed Pneumococcal Vaccine: Pediat truong (0-5 Years) and At-Risk Patients (6 to 49 Years) Aged Out No longer eligible b ased on patient's age to complete this topic Insurance PPO Care Teams Computer Programmer Chief Relationship Specialty Start Date End Date Pcp, Esther PCP - General General Medicine 06/24/23
--- OUTSIDE RECORDS SUMMARY | 2025-02-09 18:18 | XMS_ITS | Clinical Summary ---
Author Organization [facility] Prior to 07/11/24 Address [address] [place] [address] Care Team Providers Care Senior Application Software Engineer Name Role Phone Unavailable Primary Care Provider [...] Advance Directives For more information, please contact: [phone] Latest Code Status on File Code Status Date Activated Date Inactivated Comments Full Code 06/18/2023 8:57 AM 06/27/2023 7:49 PM This c ode status was ascertained in the following way: per unit protocol.
--- OUTSIDE RECORDS SUMMARY | 2025-02-09 18:18 | XMS_ITS | Clinical Summary ---
Author Organization [facility] Address [address] [place] [address] Phone Care Team Providers Care Soft Shoe Dancer Name Role Phone Physician, No Pcp Primary [...] PM EST Sexual Orientation Not on file Last Filed Vital Signs [...] Screening 03/12/2023 Depression Screening 02/12/2024 COVID-19 Vaccine ( - 2024-2 6 season) 2024 Influenza Vaccine [...] currently active code status orders. Care Teams Soft Shoe Dancer Relationship Specialty Start Date End Date Physician, No Pcp PCP - General 01/29/24
== END 2025-02-09 15:16 | disposition home or self-care (01) ==
LOC: HO.HOP 14:39
PROVIDERS: PCP Hospitalist; Visit Provider Clinical Nurse Specialist Psychiatric/Mental Health
DX: F43.10 Post-traumatic stress disorder, unspecified (principal); F90.8 Attention-deficit hyperactivity disorder, other type; F42.2 Mixed obsessional thoughts and acts
CPT/HCPCS: 99214